=== PATIENT | male | born 1960 | race Caucasian/White ===

== ENCOUNTER 2018-02-12 17:01 | Inpatient (IN) ==
[~2018-02-12 17:01] MED LIST: *HR* Etomidate 40 MG/20 ML VIAL IVP ONE; 0.9 % Sodium Chloride 1,000 ML ONE
[2018-02-12] MEDS ORDERED: 0.9 % Sodium Chloride 1,000 ML IVC ONE (17:09)
[2018-02-12] MEDS ORDERED: Naloxone 0.4 MG/ML INJ IVP ONE (17:09)
[2018-02-12] MEDS ORDERED: Acetaminophen 325 MG RECTAL SUPP RC ONE (17:12)
[2018-02-12 17:20] LABS: ABG Base Excess -4 mEq/L (-2 to 3); ABG HCO3 20 mEq/L (21-27); ABG Oxygen Saturation 91 % (95-98); ABG PCO2 32 mmHg (35-45); ABG PH 7.41 pH Units (7.32-7.45); ABG PO2 60 mmHg (85-104); ABG TCO2 21 mEq/L (20-26)
[2018-02-12 17:29] LABS: Basophils % 0.2 %; Hematocrit 37.2 % (37.5-50.1); Hemoglobin 11.6 g/dL (12.9-16.9); Immature Granulocytes % 0.4 % (0-4); Mean Corpuscular HGB Conc 31.2 g/dL (31.6-35.5); Mean Corpuscular Hemoglobin 28.5 pg (28.0-33.3); Mean Corpuscular Volume 91.4 fL (83.0-100.0); Mean Platelet Volume 9.3 fL (9.4-12.4); Monocytes # 0.8 K/mcL (0.0-1.3); Monocytes % 8.2 %; Neutrophils # 7.7 K/mcL (1.6-8.9); Platelet Count 205 K/mcL (140-400); Red Blood Count 4.07 M/mcL (4.19-5.50); Red Cell Distribution Width 13.9 % (11.5-14.5); Segmented Neutrophils % 81.2 %
[2018-02-12] MEDS ORDERED: Piperacillin/Tazobactam 3.375 GM in Water for inj. (sterile) 20 ML 20 ML IVP ONE (17:37)
[2018-02-12] MEDS ORDERED: *HR* FentaNYL (PF) 100 MCG/2 ML VIAL IVP ONE (17:37)
[2018-02-12] MEDS ORDERED: Levofloxacin 750 MG/150 ML 750 MG/150 ML BAG IVPB ONE (17:37)
[2018-02-12 17:39] LABS: INR 1.1; Prothrombin Time 12.7 Seconds (9.4-12.1)
[2018-02-12 17:42] LABS: Bilirubin,Urine Small (Negative); Blood,Urine Negative (Negative); Clarity,Urine Clear (Clear); Color,Urine Yellow (Yellow); Glucose,Urine (UA) Normal (Normal); Ketones,Urine Negative (Negative); Leukocyte Esterase,Urine Negative (Negative); Nitrite,Urine Negative (Negative); Protein,Urine Negative (Neg-Trace); Specific Gravity,Urine 1.016 (1.010-1.025); Urobilinogen,Urine Normal (Normal)
[2018-02-12 17:42] LABS: Activated Partial Thrombo Time 32.7 Seconds (26.0-36.0)
[2018-02-12] MEDS ORDERED: FentaNYL (PF) 1,000 MCG in 0.9 % Sodium Chloride 80 ML IVC SCH (17:45)
[2018-02-12 17:55] LABS: Amphetamine Screen,Urine Negative ng/mL (Cutoff=1000); Barbiturate Screen,Urine Negative ng/mL (Cutoff=200); Benzodiazepines Screen,Urine Negative ng/mL (Cutoff=200); Cannabinoid Screen,Urine Negative ng/mL (Cutoff = 50); Cocaine Screen,Urine Negative ng/mL (Cutoff= 300); Opiate Screen,Urine Positive ng/mL (Cutoff=300); Phencyclidine Screen,Urine Negative ng/mL (Cutoff=25)
[2018-02-12] MEDS ORDERED: Isovue-370 500 ML INFUS..BTL IV ONE (17:56)
--- NOTE | 2018-02-12 17:56 | Emergency Department Note ---
Disposition Clinical Impression: Respiratory arrest, JEET (acute kidney injury) Sepsis Qualifiers: Sepsis type: sepsis due to unspecified organism Qualified Code(s): A41.9 - Sepsis, unspecified organism Altered mental status Qualifiers: Altered mental status type: coma Coma depth: other Coma timing: in the field (EMT or ambulance) Qualified Code(s): R40.2441 - Other coma, without documented Bettendorf coma scale score, or with partial score reported, in the field [EMT or ambulance] Disposition: Admitted As Inpatient Condition: Critical Time of Disposition: 22:43 General Adult HPI - General Chief complaint: ED Altered Mental Status Stated complaint: Unresponsive Time Seen by Provider: 02/12/18 17:09 Source: EMS Mode of arrival: EMS Limitations: altered mental status Nursing Notes Reviewed: Yes Vital Signs Reviewed: Yes - History of Present Illness HPI Narrative: Male patient brought in by EMS. He was found unresponsive at home. The son was cooking dinner and thought his father was taking a nap however whenever he went to talk to him he couldnt wake him from his chair. EMS was called. They reported that the patient was minimally responsive. Respirations were decrease d. Glucose was normal to bagging the patient. They did administer 2 mg of Narcan with a "minimal response." They did report a low blood pressure throughout transport. Patient arrived to a trauma 1. He did have two nasal trumpets placed. EMS is [id number] ventilating the patient. Pain Scale: 0 - Related Data Home Medications Medication Instructions Recorded Confirmed Amitriptyline HCl 50 mg PO DAILY 02/12/18 02/12/18 Amlodipine Besylate 2.5 mg PO DAILY 02/12/18 02/12/18 Atorvastatin [Lipitor] 40 mg PO HS 02/12/18 02/12/18 Gabapentin [Neurontin] 400 mg PO TID 02/12/18 02/12/18 Lisinopril [Zestril] 20 mg PO DAILY 02/12/18 02/12/18 Morphine Immed Rel [Morphine 15 mg PO TID 02/12/18 02/12/18 Sulfate] Morphine Sulfate [Morphine Sulfate 60 mg PO BID 02/12/18 02/12/18 ER] PARoxetine HCl [Paroxetine HCl] 40 mg PO DAILY 02/12/18 02/12/18 clonazePAM [Clonazepam] 1 mg PO TID 02/12/18 02/12/18 Allergies Allergy/AdvReac Type Severity Reaction Status Date / Time No Known Allergies Allergy Verified 02/12/18 17:47 Limitations: ROS unobtainable due to patients medical condition Past Medical History - Past Medical History Medical history: Reports: non-contributory, other (Right below the knee amputation. History of osteomyelitis.) Psychiatric history: Reports: no psych history - Social History Smoking Status: Former smoker Alcohol use: Reports: unknown Drug use: Reports: unknown Physical Exam - General Limitations: altered mental status General appearance: obtunded - Head Head exam: atraumatic, normocephalic, normal inspection - Eye Eye exam: Present: PERRL, other (Pupils are approximately 5 mm bilaterally.). Absent: scleral icterus - ENT ENT exam: normal exam, normal oropharynx, mucous membranes dry, other (Multiple loose and missing teeth.) - Neck Neck exam: Present: normal inspection, full ROM, trachea midline - Chest Chest inspection: Present: normal inspection, symmetric chest wall rise - Respiratory Respiratory exam: Present: other (Rhonchi throughout ) - Abdominal Exam Abdominal exam: Present: soft. Absent: distention, organomegaly, Elizabeth's sign, Rovsing's sign, tenderness at McBurney's Point - Extremities Exam Extremities exam: Present: normal inspection, full ROM, other (Right ends incision site for the right below the knee amputation clean dry not erythematous not warm.). Absent: tenderness, pedal edema - Neurological Exam Neurological exam: Present: other (Response to painful stimuli.) - Skin Skin exam: Present: warm (Warmer than what I would expect his skin temperature to be.), dry, intact, normal color Course Course Narrative: Patient initially had some desaturations despite 2 nasal trumpet being placed and positioning. Patient was minimally responsive. He did respond to sternal rubs. He occasionally would open his eyes to loud noises but not consistently. Patient was intubated successfully secondary to respiratory failure. Initial ABG showed an oxygen level of 60. With a normal CO2 level. Patient's incision site to the right leg does not appear to be grossly infected. He does have a history of osteomyelitis to this. He has had 3 surgeries on his leg initially the medication started secondary to nerve entrapment according to the father. He subsequently had 2 surgeries for osteomyelitis since then. The most recent surgery was approximately 3 weeks ago at [facility]. The patient does take morphine at home for pain secondary to the surgery as well as Paxil according to the father. However despite our best effort is the son at the house is having a hard time finding the patient's medications and reporting, the pills are in there. He was able to find the morphine pill bottles. He had 60 mg of morphine sulfate extended-release filled on February 10. He should have had 8475. He also had morphine sulfate 15 mg to take 3 times a day that was filled on 1024 he should have 52 and he has 50. He also had Klonopin 1 mg filled on 1017 3 times a day he has 23 and should have 36. He also has gabapentin 400 mg there was filled on 02/09/2018 he should have 78 but he of 76 this he takes a times a day. Patient's ABG was redrawn after the patient was been on the ventilator. He did decrease the oxygen on the ventilator to 70% after his PO2 was noted to be elevated. Patient has a left middle and lower lobe pneumonia likely aspiration. We did place patient on triple antibiotic therapy. I discussed the patient with nephrology suggested that suggest that we continue to hydrate the patient due to his new a chaotic. We are concerned for pulmonary embolism and the patient's troponin is elevated as well. The patient could not undergo a CTA of his chest at this time due to his TRESA. We will heparinize the patient at this time I discussed this with cardiology and they suggested this as well. Sepsis is also a concern at this time as is a possible serotonin syndrome. We discussed the patient with toxicology is requesting we keep the patient on benzos at this time. Patient is in critical condition. I discussed this with the family who is requesting patient stay code currently. We will admit patient to ICU. - Consultations Consultation #1: I spoke with Dr. Calabrese at her manager of product. He is agreeable to this patient should not undergo a CT PE study. He is suggesting that we could likely increase the fluid likely this is a prerenal form of jeet. Time: 18:55 Consultation #2: Spoke with toxicology. They will be calling back. Time: 19:42 Consultation #3: I spoke with toxicology again they called back. They are staying just benzos at this time. They do not believe that cyproheptadine will provide much benefit. Time: 20:07 Additional Consultation(s): 2035: Dr Ziegler accepted Pt in stable condition. Vital Signs Temperature 101.6 F H 02/12/18 17:01 Pulse Rate 115 02/12/18 17:01 Respiratory Rate 22 02/12/18 17:01 Blood Pressure 145/129 02/12/18 17:01 O2 Sat by Pulse Oximetry 95 02/12/18 17:01 Temperature 98.0 F 02/12/18 21:30 Pulse Rate 75 02/12/18 21:30 Respiratory Rate 14 02/12/18 21:30 Blood Pressure 82/51 02/12/18 21:30 O2 Sat by Pulse Oximetry 94 02/12/18 21:30 Oxygen Delivery Oxygen Delivery Ventilator Medical Decision Making - Medical Records Medical records reviewed: Yes I reviewed the patient's medical records. - Lab Data Lab results reviewed: Yes I reviewed the patient's lab results. Result diagrams: 02/12/18 20:31 02/12/18 17:09 Lab Results 02/12/18 02/12/18 02/12/18 Range/Units 17:04 17:09 17:11 WBC 9.5 (4.3-11.1) K/mcL RBC 4.07 L (4.19-5.50) M/mcL Hgb 11.6 L (12.9-16.9) g/dL Hct 37.2 L (37.5-50.1) % MCV 91.4 (83.0-100.0) fL MCH 28.5 (28.0-33.3) pg MCHC 31.2 L (31.6-35.5) g/dL RDW 13.9 (11.5-14.5) % Plt Count 205 (140-400) K/mcL MPV 9.3 L (9.4-12.4) fL Immature Gran % 0.4 (0-4) % Seg Neutrophils % 81.2 % Lymphocytes % 10.0 % Monocytes % 8.2 % Eosinophils % 0.0 % Basophils % 0.2 % Neutrophils # 7.7 (1.6-8.9) K/mcL Lymphocytes # 1.0 (0.6-4.6) K/mcL Monocytes # 0.8 (0.0-1.3) K/mcL Eosinophils # 0.0 (0.0-0.6) K/mcL Basophils # 0.0 (0.0-0.2) K/mcL PT (9.4-12.1) Seconds INR APTT (26.0-36.0) Seconds D-Dimer (0-500) ng/mLFEU Heparin Anti-Xa, Unfract (0.30-0.70) IU/mL Sample Site ABG pH (7.32-7.45) pH Units ABG pCO2 (35-45) mmHg ABG pO2 (85-104) mmHg ABG HCO3 (21-27) mEq/L ABG Total CO2 (20-26) mEq/L ABG O2 Saturation (95-98) % ABG Base Excess (-2 to 3) mEq/L Thad Test Carboxyhemoglobin (0-5) % Respiration Rate O2 Delivery Device Blood Gas Modality Inspired O2 (1-15=lpm [id number]=%) Tidal Volume cc PEEP cm H2O Sodium 134 L (136-145) mEq/L Potassium 5.3 H (3.5-5.1) mEq/L Chloride 104 (98-107) mEq/L Carbon Dioxide 20 L (23-29) mEq/L BUN 31 H (6-20) mg/dL Creatinine 5.62 H (0.70-1.30) mg/dL Est GFR ( Amer) 13 L (> 60) Est GFR (Non-Af Amer) 11 L (> 60) BUN/Creatinine Ratio 6 (6-26) Glucose 138 H (70-105) mg/dL POC Glucose 142 H (70-99) mg/dL Calculated Osmolality 287 (280-300) Lactic Acid (0.5-2.2) mmol/L Calcium 9.0 (8.6-10.3) mg/dL Phosphorus 5.5 H (2.7-4.5) mg/dL Magnesium 1.9 (1.6-2.6) mg/dL Total Bilirubin 0.8 (0.3-1.0) mg/dL Direct Bilirubin 0.2 (0.0-0.2) mg/dL Indirect Bilirubin 0.6 (0.0-1.2) mg/dL AST 14 (13-39) Units/L ALT 14 (7-52) Units/L Alkaline Phosphatase 145 H (34-104) Units/L Ammonia (16-53) mcmol/L Creatine Kinase 151 (30-223) Units/L Troponin I 0.31 H* (< 0.04) ng/mL Serum Total Protein 6.2 L (6.4-8.9) g/dL Albumin 3.6 (3.5-5.7) g/dL Globulin 2.6 (2.4-3.5) g/dL Albumin/Globulin Ratio 1.4 (1.1-2.2) TSH 0.774 (0.340-5.600) mcIU/mL Urine Color (Yellow) Urine Clarity (Clear) Urine pH (5.0-8.0) pH Units Ur Specific Sherburn (1.010-1.025) Urine Protein (Neg-Trace) mg/dL Urine Glucose (UA) (Normal) mg/dL Urine Ketones (Negative) mg/dL Urine Blood (Negative) Urine Nitrite (Negative) Urine Bilirubin (Negative) Urine Urobilinogen (Normal) mg/dL Ur Leukocyte Esterase (Negative) Ur Culture Indicated? (NO) Salicylates < 2.5 L (15.0-30.0) mg/dL Urine Opiates Screen (Omggyk=035) ng/mL Acetaminophen < 10 L (10-20) mcg/mL Ur Barbiturates Screen (Punhws=639) ng/mL Ur Phencyclidine Scrn (Cutoff=25) ng/mL Ur Amphetamines Screen (Vjwfkw=8394) ng/mL U Benzodiazepines Scrn (Wwidwk=747) ng/mL Urine Cocaine Screen (Cutoff= 300) ng/mL U Marijuana (THC) Screen (Cutoff = 50) ng/mL Ur Drug Screen Interp Ethyl Alcohol < 10 (Less than 10) mg/dL 02/12/18 02/12/18 02/12/18 Range/Units 17:11 17:11 17:12 WBC (4.3-11.1) K/mcL RBC (4.19-5.50) M/mcL Hgb (12.9-16.9) g/dL Hct (37.5-50.1) % MCV (83.0-100.0) fL MCH (28.0-33.3) pg MCHC (31.6-35.5) g/dL RDW (11.5-14.5) % Plt Count (140-400) K/mcL MPV (9.4-12.4) fL Immature Gran % (0-4) % Seg Neutrophils % % Lymphocytes % % Monocytes % % Eosinophils % % Basophils % % Neutrophils # (1.6-8.9) K/mcL Lymphocytes # (0.6-4.6) K/mcL Monocytes # (0.0-1.3) K/mcL Eosinophils # (0.0-0.6) K/mcL Basophils # (0.0-0.2) K/mcL PT 12.7 H (9.4-12.1) Seconds INR 1.1 APTT 32.7 (26.0-36.0) Seconds D-Dimer (0-500) ng/mLFEU Heparin Anti-Xa, Unfract (0.30-0.70) IU/mL Sample Site ABG pH (7.32-7.45) pH Units ABG pCO2 (35-45) mmHg ABG pO2 (85-104) mmHg ABG HCO3 (21-27) mEq/L ABG Total CO2 (20-26) mEq/L ABG O2 Saturation (95-98) % ABG Base Excess (-2 to 3) mEq/L Thad Test Carboxyhemoglobin 7.5 H (0-5) % Respiration Rate O2 Delivery Device Blood Gas Modality Inspired O2 (1-15=lpm fr36-174=%) Tidal Volume cc PEEP cm H2O Sodium (136-145) mEq/L Potassium (3.5-5.1) mEq/L Chloride (98-107) mEq/L Carbon Dioxide (23-29) mEq/L BUN (6-20) mg/dL Creatinine (0.70-1.30) mg/dL Est GFR ( Amer) (> 60) Est GFR (Non-Af Amer) (> 60) BUN/Creatinine Ratio (6-26) Glucose (70-105) mg/dL POC Glucose (70-99) mg/dL Calculated Osmolality (280-300) Lactic Acid 1.3 (0.5-2.2) mmol/L Calcium (8.6-10.3) mg/dL Phosphorus (2.7-4.5) mg/dL Magnesium (1.6-2.6) mg/dL Total Bilirubin (0.3-1.0) mg/dL Direct Bilirubin (0.0-0.2) mg/dL Indirect Bilirubin (0.0-1.2) mg/dL AST (13-39) Units/L ALT (7-52) Units/L Alkaline Phosphatase (34-104) Units/L Ammonia (16-53) mcmol/L Creatine Kinase (30-223) Units/L Troponin I (< 0.04) ng/mL Serum Total Protein (6.4-8.9) g/dL Albumin (3.5-5.7) g/dL Globulin (2.4-3.5) g/dL Albumin/Globulin Ratio (1.1-2.2) TSH (0.340-5.600) mcIU/mL Urine Color (Yellow) Urine Clarity (Clear) Urine pH (5.0-8.0) pH Units Ur Specific Sherburn (1.010-1.025) Urine Protein (Neg-Trace) mg/dL Urine Glucose (UA) (Normal) mg/dL Urine Ketones (Negative) mg/dL Urine Blood (Negative) Urine Nitrite (Negative) Urine Bilirubin (Negative) Urine Urobilinogen (Normal) mg/dL Ur Leukocyte Esterase (Negative) Ur Culture Indicated? (NO) Salicylates (15.0-30.0) mg/dL Urine Opiates Screen (Uotqdr=443) ng/mL Acetaminophen (10-20) mcg/mL Ur Barbiturates Screen (Cronxw=119) ng/mL Ur Phencyclidine Scrn (Cutoff=25) ng/mL Ur Amphetamines Screen (Vjlklt=3924) ng/mL U Benzodiazepines Scrn (Mgksdw=783) ng/mL Urine Cocaine Screen (Cutoff= 300) ng/mL U Marijuana (THC) Screen (Cutoff = 50) ng/mL Ur Drug Screen Interp Ethyl Alcohol (Less than 10) mg/dL 02/12/18 02/12/18 02/12/18 Range/Units 17:16 17:33 17:33 WBC (4.3-11.1) K/mcL RBC (4.19-5.50) M/mcL Hgb (12.9-16.9) g/dL Hct (37.5-50.1) % MCV (83.0-100.0) fL MCH (28.0-33.3) pg MCHC (31.6-35.5) g/dL RDW (11.5-14.5) % Plt Count (140-400) K/mcL MPV (9.4-12.4) fL Immature Gran % (0-4) % Seg Neutrophils % % Lymphocytes % % Monocytes % % Eosinophils % % Basophils % % Neutrophils # (1.6-8.9) K/mcL Lymphocytes # (0.6-4.6) K/mcL Monocytes # (0.0-1.3) K/mcL Eosinophils # (0.0-0.6) K/mcL Basophils # (0.0-0.2) K/mcL PT (9.4-12.1) Seconds INR APTT (26.0-36.0) Seconds D-Dimer (0-500) ng/mLFEU Heparin Anti-Xa, Unfract (0.30-0.70) IU/mL Sample Site L Radial ABG pH 7.41 (7.32-7.45) pH Units ABG pCO2 32 L (35-45) mmHg ABG pO2 60 L (85-104) mmHg ABG HCO3 20 L (21-27) mEq/L ABG Total CO2 21 (20-26) mEq/L ABG O2 Saturation 91 L (95-98) % ABG Base Excess -4 L (-2 to 3) mEq/L Thad Test N/A Carboxyhemoglobin (0-5) % Respiration Rate O2 Delivery Device Oxy Mask Blood Gas Modality Inspired O2 12.0 (1-15=lpm xm03-152=%) Tidal Volume cc PEEP cm H2O Sodium (136-145) mEq/L Potassium (3.5-5.1) mEq/L Chloride (98-107) mEq/L Carbon Dioxide (23-29) mEq/L BUN (6-20) mg/dL Creatinine (0.70-1.30) mg/dL Est GFR ( Amer) (> 60) Est GFR (Non-Af Amer) (> 60) BUN/Creatinine Ratio (6-26) Glucose (70-105) mg/dL POC Glucose (70-99) mg/dL Calculated Osmolality (280-300) Lactic Acid (0.5-2.2) mmol/L Calcium (8.6-10.3) mg/dL Phosphorus (2.7-4.5) mg/dL Magnesium (1.6-2.6) mg/dL Total Bilirubin (0.3-1.0) mg/dL Direct Bilirubin (0.0-0.2) mg/dL Indirect Bilirubin (0.0-1.2) mg/dL AST (13-39) Units/L ALT (7-52) Units/L Alkaline Phosphatase (34-104) Units/L Ammonia (16-53) mcmol/L Creatine Kinase (30-223) Units/L Troponin I (< 0.04) ng/mL Serum Total Protein (6.4-8.9) g/dL Albumin (3.5-5.7) g/dL Globulin (2.4-3.5) g/dL Albumin/Globulin Ratio (1.1-2.2) TSH (0.340-5.600) mcIU/mL Urine Color Yellow (Yellow) Urine Clarity Clear (Clear) Urine pH 6.0 (5.0-8.0) pH Units Ur Specific Sherburn 1.016 (1.010-1.025) Urine Protein Negative (Neg-Trace) mg/dL Urine Glucose (UA) Normal (Normal) mg/dL Urine Ketones Negative (Negative) mg/dL Urine Blood Negative (Negative) Urine Nitrite Negative (Negative) Urine Bilirubin Small H (Negative) Urine Urobilinogen Normal (Normal) mg/dL Ur Leukocyte Esterase Negative (Negative) Ur Culture Indicated? NO (NO) Salicylates (15.0-30.0) mg/dL Urine Opiates Screen Positive H (Vbjdkx=840) ng/mL Acetaminophen (10-20) mcg/mL Ur Barbiturates Screen Negative (Endckx=391) ng/mL Ur Phencyclidine Scrn Negative (Cutoff=25) ng/mL Ur Amphetamines Screen Negative (Ugogsl=1202) ng/mL U Benzodiazepines Scrn Negative (Duugmq=565) ng/mL Urine Cocaine Screen Negative (Cutoff= 300) ng/mL U Marijuana (THC) Screen Negative (Cutoff = 50) ng/mL Ur Drug Screen Interp See Below Ethyl Alcohol (Less than 10) mg/dL 02/12/18 02/12/18 02/12/18 Range/Units 17:35 20:06 20:31 WBC 10.6 (4.3-11.1) K/mcL RBC 3.88 L (4.19-5.50) M/mcL Hgb 11.1 L (12.9-16.9) g/dL Hct 35.7 L (37.5-50.1) % MCV 92.0 (83.0-100.0) fL MCH 28.6 (28.0-33.3) pg MCHC 31.1 L (31.6-35.5) g/dL RDW 13.9 (11.5-14.5) % Plt Count 182 (140-400) K/mcL MPV 9.2 L (9.4-12.4) fL Immature Gran % (0-4) % Seg Neutrophils % % Lymphocytes % % Monocytes % % Eosinophils % % Basophils % % Neutrophils # (1.6-8.9) K/mcL Lymphocytes # (0.6-4.6) K/mcL Monocytes # (0.0-1.3) K/mcL Eosinophils # (0.0-0.6) K/mcL Basophils # (0.0-0.2) K/mcL PT (9.4-12.1) Seconds INR APTT (26.0-36.0) Seconds D-Dimer (0-500) ng/mLFEU Heparin Anti-Xa, Unfract (0.30-0.70) IU/mL Sample Site L Radial ABG pH 7.27 L D (7.32-7.45) pH Units ABG pCO2 47 H (35-45) mmHg ABG pO2 172 H D (85-104) mmHg ABG HCO3 22 (21-27) mEq/L ABG Total CO2 23 (20-26) mEq/L ABG O2 Saturation 99 H (95-98) % ABG Base Excess -5 L (-2 to 3) mEq/L Thad Test N/A Carboxyhemoglobin (0-5) % Respiration Rate 12 O2 Delivery Device Adult Vent Blood Gas Modality ASSIST CONTROL Inspired O2 100.0 (1-15=lpm qj21-979=%) Tidal Volume 550 cc PEEP 5 cm H2O Sodium (136-145) mEq/L Potassium (3.5-5.1) mEq/L Chloride (98-107) mEq/L Carbon Dioxide (23-29) mEq/L BUN (6-20) mg/dL Creatinine (0.70-1.30) mg/dL Est GFR ( Amer) (> 60) Est GFR (Non-Af Amer) (> 60) BUN/Creatinine Ratio (6-26) Glucose (70-105) mg/dL POC Glucose (70-99) mg/dL Calculated Osmolality (280-300) Lactic Acid (0.5-2.2) mmol/L Calcium (8.6-10.3) mg/dL Phosphorus (2.7-4.5) mg/dL Magnesium (1.6-2.6) mg/dL Total Bilirubin (0.3-1.0) mg/dL Direct Bilirubin (0.0-0.2) mg/dL Indirect Bilirubin (0.0-1.2) mg/dL AST (13-39) Units/L ALT (7-52) Units/L Alkaline Phosphatase (34-104) Units/L Ammonia 47 (16-53) mcmol/L Creatine Kinase (30-223) Units/L Troponin I (< 0.04) ng/mL Serum Total Protein (6.4-8.9) g/dL Albumin (3.5-5.7) g/dL Globulin (2.4-3.5) g/dL Albumin/Globulin Ratio (1.1-2.2) TSH (0.340-5.600) mcIU/mL Urine Color (Yellow) Urine Clarity (Clear) Urine pH (5.0-8.0) pH Units Ur Specific Sherburn (1.010-1.025) Urine Protein (Neg-Trace) mg/dL Urine Glucose (UA) (Normal) mg/dL Urine Ketones (Negative) mg/dL Urine Blood (Negative) Urine Nitrite (Negative) Urine Bilirubin (Negative) Urine Urobilinogen (Normal) mg/dL Ur Leukocyte Esterase (Negative) Ur Culture Indicated? (NO) Salicylates (15.0-30.0) mg/dL Urine Opiates Screen (Qvvcke=988) ng/mL Acetaminophen (10-20) mcg/mL Ur Barbiturates Screen (Umomrj=922) ng/mL Ur Phencyclidine Scrn (Cutoff=25) ng/mL Ur Amphetamines Screen (Wqhcqg=3984) ng/mL U Benzodiazepines Scrn (Jnvrvl=005) ng/mL Urine Cocaine Screen (Cutoff= 300) ng/mL U Marijuana (THC) Screen (Cutoff = 50) ng/mL Ur Drug Screen Interp Ethyl Alcohol (Less than 10) mg/dL 02/12/18 Range/Units 20:31 WBC (4.3-11.1) K/mcL RBC (4.19-5.50) M/mcL Hgb (12.9-16.9) g/dL Hct (37.5-50.1) % MCV (83.0-100.0) fL MCH (28.0-33.3) pg MCHC (31.6-35.5) g/dL RDW (11.5-14.5) % Plt Count (140-400) K/mcL MPV (9.4-12.4) fL Immature Gran % (0-4) % Seg Neutrophils % % Lymphocytes % % Monocytes % % Eosinophils % % Basophils % % Neutrophils # (1.6-8.9) K/mcL Lymphocytes # (0.6-4.6) K/mcL Monocytes # (0.0-1.3) K/mcL Eosinophils # (0.0-0.6) K/mcL Basophils # (0.0-0.2) K/mcL PT 13.3 H (9.4-12.1) Seconds INR 1.2 APTT (26.0-36.0) Seconds D-Dimer 1518 H (0-500) ng/mLFEU Heparin Anti-Xa, Unfract 0.00 L (0.30-0.70) IU/mL Sample Site ABG pH (7.32-7.45) pH Units ABG pCO2 (35-45) mmHg ABG pO2 (85-104) mmHg ABG HCO3 (21-27) mEq/L ABG Total CO2 (20-26) mEq/L ABG O2 Saturation (95-98) % ABG Base Excess (-2 to 3) mEq/L Thad Test Carboxyhemoglobin (0-5) % Respiration Rate O2 Delivery Device Blood Gas Modality Inspired O2 (1-15=lpm vk89-891=%) Tidal Volume cc PEEP cm H2O Sodium (136-145) mEq/L Potassium (3.5-5.1) mEq/L Chloride (98-107) mEq/L Carbon Dioxide (23-29) mEq/L BUN (6-20) mg/dL Creatinine (0.70-1.30) mg/dL Est GFR ( Amer) (> 60) Est GFR (Non-Af Amer) (> 60) BUN/Creatinine Ratio (6-26) Glucose (70-105) mg/dL POC Glucose (70-99) mg/dL Calculated Osmolality (280-300) Lactic Acid (0.5-2.2) mmol/L Calcium (8.6-10.3) mg/dL Phosphorus (2.7-4.5) mg/dL Magnesium (1.6-2.6) mg/dL Total Bilirubin (0.3-1.0) mg/dL Direct Bilirubin (0.0-0.2) mg/dL Indirect Bilirubin (0.0-1.2) mg/dL AST (13-39) Units/L ALT (7-52) Units/L Alkaline Phosphatase (34-104) Units/L Ammonia (16-53) mcmol/L Creatine Kinase (30-223) Units/L Troponin I (< 0.04) ng/mL Serum Total Protein (6.4-8.9) g/dL Albumin (3.5-5.7) g/dL Globulin (2.4-3.5) g/dL Albumin/Globulin Ratio (1.1-2.2) TSH (0.340-5.600) mcIU/mL Urine Color (Yellow) Urine Clarity (Clear) Urine pH (5.0-8.0) pH Units Ur Specific [place] (1.010-1.025) Urine Protein (Neg-Trace) mg/dL Urine Glucose (UA) (Normal) mg/dL Urine Ketones (Negative) mg/dL Urine Blood (Negative) Urine Nitrite (Negative) Urine Bilirubin (Negative) Urine Urobilinogen (Normal) mg/dL Ur Leukocyte Esterase (Negative) Ur Culture Indicated? (NO) Salicylates (15.0-30.0) mg/dL Urine Opiates Screen (Vvkyqn=363) ng/mL Acetaminophen (10-20) mcg/mL Ur Barbiturates Screen (Anbqll=183) ng/mL Ur Phencyclidine Scrn (Cutoff=25) ng/mL Ur Amphetamines Screen (Pxbifu=7882) ng/mL U Benzodiazepines Scrn (Kaexnz=114) ng/mL Urine Cocaine Screen (Cutoff= 300) ng/mL U Marijuana (THC) Screen (Cutoff = 50) ng/mL Ur Drug Screen Interp Ethyl Alcohol (Less than 10) mg/dL - Radiology Data Radiology results reviewed: Yes I reviewed the patient's radiology results. Chest X-Ray 02/12/18 17:09 IMPRESSION: 1. Endotracheal tube tip terminates 3.1 cm above the nancy. 2. Nasogastric tube tip terminates in the region of the pylorus. 3. Cardiomegaly with mild to moderate congestive heart failure. D/ / 02/12/2018 17:56:32 Jenny Aranda MD / [place] Interpreting Provider: Jenny Aranda MD Head CT 02/12/18 17:10 IMPRESSION: 1. Motion artifact limits evaluation. No definite acute intracranial abnormality. 2. Nonspecific metallic radiodensity measuring approximately 6 mm is present in the region of the posterior nasopharynx. 3. Scattered fluid is present in the nasal cavity and ethmoid air cells, of unclear significance. D/ /12/2018 19:00:22 Sher Dorsey MD / [place] Interpreting Provider: Sher Dorsey MD Chest CT 02/12/18 17:56 IMPRESSION: 1. Motion artifact limits evaluation. 2. Focal obstruction of the bronchus to the left lower lobe, which could be related to mucous plugging or aspiration. Consolidation is present in the infrahilar left lower lobe. 3. Extensive atelectasis present posteriorly in both lower lobes, with airspace consolidation not excluded. 4. Mild mediastinal lymphadenopathy, which may be reactive. D/ 02/12/2018 19:07:18 Sher Dorsey MD / [place] Interpreting Provider: Sher Dorsey MD - EKG Data EKG #1 EKG attestation: Yes I reviewed and interpreted this EKG. EKG results narrative: Sinus tachycardia at a rate of 112. CA intervals 143. QRS duration is 1:15. QT is 318. QTC is 434. No signs of acute ischemia. There is been an axis change from his previous EKG dated 09/02/2017. However his most recent EKG dated 10/23/2017 shows the same axis. No other significant changes noted. Patient does have some ST depressions noted in the lateral leads. Critical Care Time Critical Care Time: Yes Total Critical Care Time: 90 Attestation: The high probability of a clinically significant, sudden or life threatening deterioration of the cardiovascular and respiratory system(s) required my full and direct attention, intervention and personal management. The aggregate critical care time was 90 minutes. This time is in addition to time spent performing reported procedures but includes the following: x Data Review and interpretation x Patient assessment and monitoring of vital signs x Documentation x Medication orders and management Attestation Statement - Attestation Attestation: I, Wayne Orona, examined this patient and my medical decision-making was reviewed with the CHEMICAL PROCESS OPERATOR/PA/Advanced Practice Nurse/Resident Physician. I agree with the documented findings, disposition and treatment plan as described except to the extent set forth below. 57-year-old male brought to the emergency department after being found unresponsive. Patient was last seen at his baseline about 3-4 hours prior to when he was found. EMS arrived on scene and found him to be hypoxic to 70% and hypotensive. They put him on nonrebreather with improvement of his O2 saturation. Upon arrival to the emergency department he opens his eyes to pain, makes incomprehensible sounds and has myoclonic jerking with withdrawals from pain. He was hyperthermic at 102.5. Family arrived and stated that he had been taking Paxil however it is not listed among his medications. We have multiple concerns including possible PE as he is status post right BKA. Also concerned about possible sepsis with his febrile status and rhonchi on lung exam. There is also concerned about possible serotonin syndrome as he has myoclonic jerks with hyperthermia and was apparently taking Paxil. Patient was intubated to protect his airway. His BP remained stable. CT of his head was negative for acute fracture or intracranial hemorrhage. CT of his chest showed possible mucous plugging versus atelectasis. We are unable to use contrast to evaluate for PE because of patient's acute renal failure. I spoke with the radiologist who recommended that we would not be able to obtain a very good VQ scan because he is intubated. We spoke with the baseball umpire for [employer] regarding patient's case and presentation and the elevated troponin who agreed with the plan for starting patient on heparin which will treat both possible ACS as well as PE. Patient started on antibiotics in the emergency department for possible sepsis. Patient will be admitted to the ICU.
[2018-02-12 17:57] LABS: Alanine Aminotransferase 14 Units/L (7-52); Albumin 3.6 g/dL (3.5-5.7); Albumin/Globulin Ratio 1.4 (1.1-2.2); Alkaline Phosphatase 145 Units/L (34-104); Aspartate Amino Transferase 14 Units/L (13-39); BUN/Creatinine Ratio 6 (6-26); Bilirubin,Direct 0.2 mg/dL (0.0-0.2); Bilirubin,Indirect 0.6 mg/dL (0.0-1.2); Bilirubin,Total 0.8 mg/dL (0.3-1.0); Blood Urea Nitrogen 31 mg/dL (6-20); Carbon Dioxide 20 mEq/L (23-29); Chloride 104 mEq/L (98-107); Creatine Kinase 151 Units/L (30-223); Ethanol < 10 mg/dL (Less than 10); Globulin 2.6 g/dL (2.4-3.5); Glucose 138 mg/dL (70-105); Osmolality,Calculated 287 (280-300); Potassium 5.3 mEq/L (3.5-5.1); Sodium 134 mEq/L (136-145); Total Protein 6.2 g/dL (6.4-8.9); eGFR For Non-African Americans 11 (> 60)
[2018-02-12 18:01] LABS: Troponin I 0.31 ng/mL (< 0.04)
[2018-02-12] MEDS ORDERED: Propofol 500 MG/50 ML INFUS..BTL ONE (18:02)
[2018-02-12 18:09] LABS: Thyroid Stimulating Hormone 0.774 mcIU/mL (0.340-5.600)
[2018-02-12 18:14] LABS: Magnesium 1.9 mg/dL (1.6-2.6); Phosphorous 5.5 mg/dL (2.7-4.5)
--- NOTE | 2018-02-12 18:34 | Emergency Department Note ---
Disposition Clinical Impression: Respiratory arrest, Sepsis, Altered mental status, JEET (acute kidney injury) Disposition: Admitted As Inpatient Condition: Critical General Adult HPI - General Chief complaint: ED Altered Mental Status Stated complaint: Unresponsive Time Seen by Provider: 02/12/18 17:09 Source: EMS Limitations: altered mental status - History of Present Illness Pain Scale: 0 - Related Data Allergies Allergy/AdvReac Type Severity Reaction Status Date / Time No Known Allergies Allergy Verified 02/12/18 17:47 Past Medical History - Past Medical History Medical history: Reports: non-contributory Psychiatric history: Reports: no psych history - Social History Smoking Status: Former smoker Alcohol use: Reports: unknown Drug use: Reports: unknown Physical Exam - General Limitations: altered mental status General appearance: obtunded Course Course Narrative: My role in the patient's care was for information only. Please see Dr. Curry note for full history of present illness, PE and MDM. Vital Signs Temperature 101.6 F H 02/12/18 17:01 Pulse Rate 115 02/12/18 17:01 Respiratory Rate 22 02/12/18 17:01 Blood Pressure 145/129 02/12/18 17:01 O2 Sat by Pulse Oximetry 95 02/12/18 17:01 Temperature 102.6 F H 02/12/18 17:55 Pulse Rate 114 02/12/18 17:55 Respiratory Rate 21 02/12/18 17:55 Blood Pressure 129/76 02/12/18 17:55 O2 Sat by Pulse Oximetry 100 02/12/18 17:55 Oxygen Delivery Oxygen Delivery Ventilator Procedures - Intubation Time out performed: Yes sedative: Etomidate Mg Given: 20 paralytic: Succinylcholine Mg Given: 70 Laryngoscope: Yuliya Assist Device Used: other ET Tube Size: 8 ET Tube Uncuffed: No Tube Secured Depth (cm): 24 Tube Secured Location: lips Tube Placement Confirmation: visualized tube passing through cords, equal breath sounds bilaterally, no breath sounds over epigastrium, confirmation by capnometry Patient Tolerated Procedure: well Intubation Complications: none Additional Comments: I made one attempt with Yuliya 4 direct, attempted to pass tube but unable to visualize passing cords but thick secretions vacuumed. Patient bagged with return to 100% oxygenation. When preoxygenation obtained, transitioned to use of CMAC with repeat inability to visualize cords. Dr. Curry then took over with successful passage of tubes beyond tubes via use of CMAC. Medical Decision Making - Lab Data Result diagrams: 02/12/18 20:31 02/12/18 17:09 Lab Results 02/12/18 02/12/18 02/12/18 Range/Units 17:09 17:11 17:11 WBC 9.5 (4.3-11.1) K/mcL RBC 4.07 L (4.19-5.50) M/mcL Hgb 11.6 L (12.9-16.9) g/dL Hct 37.2 L (37.5-50.1) % MCV 91.4 (83.0-100.0) fL MCH 28.5 (28.0-33.3) pg MCHC 31.2 L (31.6-35.5) g/dL RDW 13.9 (11.5-14.5) % Plt Count 205 (140-400) K/mcL MPV 9.3 L (9.4-12.4) fL Immature Gran % 0.4 (0-4) % Seg Neutrophils % 81.2 % Lymphocytes % 10.0 % Monocytes % 8.2 % Eosinophils % 0.0 % Basophils % 0.2 % Neutrophils # 7.7 (1.6-8.9) K/mcL Lymphocytes # 1.0 (0.6-4.6) K/mcL Monocytes # 0.8 (0.0-1.3) K/mcL Eosinophils # 0.0 (0.0-0.6) K/mcL Basophils # 0.0 (0.0-0.2) K/mcL PT 12.7 H (9.4-12.1) Seconds INR 1.1 APTT 32.7 (26.0-36.0) Seconds Sample Site ABG pH (7.32-7.45) pH Units ABG pCO2 (35-45) mmHg ABG pO2 (85-104) mmHg ABG HCO3 (21-27) mEq/L ABG Total CO2 (20-26) mEq/L ABG O2 Saturation (95-98) % ABG Base Excess (-2 to 3) mEq/L Thad Test Carboxyhemoglobin (0-5) % O2 Delivery Device Inspired O2 (1-15=lpm [id number]=%) Sodium 134 L (136-145) mEq/L Potassium 5.3 H (3.5-5.1) mEq/L Chloride 104 (98-107) mEq/L Carbon Dioxide 20 L (23-29) mEq/L BUN 31 H (6-20) mg/dL Creatinine 5.62 H (0.70-1.30) mg/dL Est GFR ( Amer) 13 L (> 60) Est GFR (Non-Af Amer) 11 L (> 60) BUN/Creatinine Ratio 6 (6-26) Glucose 138 H (70-105) mg/dL Calculated Osmolality 287 (280-300) Lactic Acid (0.5-2.2) mmol/L Calcium 9.0 (8.6-10.3) mg/dL Phosphorus 5.5 H (2.7-4.5) mg/dL Magnesium 1.9 (1.6-2.6) mg/dL Total Bilirubin 0.8 (0.3-1.0) mg/dL Direct Bilirubin 0.2 (0.0-0.2) mg/dL Indirect Bilirubin 0.6 (0.0-1.2) mg/dL AST 14 (13-39) Units/L ALT 14 (7-52) Units/L Alkaline Phosphatase 145 H (34-104) Units/L Ammonia (16-53) mcmol/L Creatine Kinase 151 (30-223) Units/L Troponin I 0.31 H* (< 0.04) ng/mL Serum Total Protein 6.2 L (6.4-8.9) g/dL Albumin 3.6 (3.5-5.7) g/dL Globulin 2.6 (2.4-3.5) g/dL Albumin/Globulin Ratio 1.4 (1.1-2.2) TSH 0.774 (0.340-5.600) mcIU/mL Urine Color (Yellow) Urine Clarity (Clear) Urine pH (5.0-8.0) pH Units Ur Specific Lynn (1.010-1.025) Urine Protein (Neg-Trace) mg/dL Urine Glucose (UA) (Normal) mg/dL Urine Ketones (Negative) mg/dL Urine Blood (Negative) Urine Nitrite (Negative) Urine Bilirubin (Negative) Urine Urobilinogen (Normal) mg/dL Ur Leukocyte Esterase (Negative) Ur Culture Indicated? (NO) Urine Opiates Screen (Prcecu=859) ng/mL Ur Barbiturates Screen (Xxpuzc=181) ng/mL Ur Phencyclidine Scrn (Cutoff=25) ng/mL Ur Amphetamines Screen (Lamftz=9008) ng/mL U Benzodiazepines Scrn (Aphytv=785) ng/mL Urine Cocaine Screen (Cutoff= 300) ng/mL U Marijuana (THC) Screen (Cutoff = 50) ng/mL Ur Drug Screen Interp Ethyl Alcohol < 10 (Less than 10) mg/dL 02/12/18 02/12/18 02/12/18 Range/Units 17:11 17:12 17:16 WBC (4.3-11.1) K/mcL RBC (4.19-5.50) M/mcL Hgb (12.9-16.9) g/dL Hct (37.5-50.1) % MCV (83.0-100.0) fL MCH (28.0-33.3) pg MCHC (31.6-35.5) g/dL RDW (11.5-14.5) % Plt Count (140-400) K/mcL MPV (9.4-12.4) fL Immature Gran % (0-4) % Seg Neutrophils % % Lymphocytes % % Monocytes % % Eosinophils % % Basophils % % Neutrophils # (1.6-8.9) K/mcL Lymphocytes # (0.6-4.6) K/mcL Monocytes # (0.0-1.3) K/mcL Eosinophils # (0.0-0.6) K/mcL Basophils # (0.0-0.2) K/mcL PT (9.4-12.1) Seconds INR APTT (26.0-36.0) Seconds Sample Site L Radial ABG pH 7.41 (7.32-7.45) pH Units ABG pCO2 32 L (35-45) mmHg ABG pO2 60 L (85-104) mmHg ABG HCO3 20 L (21-27) mEq/L ABG Total CO2 21 (20-26) mEq/L ABG O2 Saturation 91 L (95-98) % ABG Base Excess -4 L (-2 to 3) mEq/L Thad Test N/A Carboxyhemoglobin 7.5 H (0-5) % O2 Delivery Device Oxy Mask Inspired O2 12.0 (1-15=lpm [id number]=%) Sodium (136-145) mEq/L Potassium (3.5-5.1) mEq/L Chloride (98-107) mEq/L Carbon Dioxide (23-29) mEq/L BUN (6-20) mg/dL Creatinine (0.70-1.30) mg/dL Est GFR ( Amer) (> 60) Est GFR (Non-Af Amer) (> 60) BUN/Creatinine Ratio (6-26) Glucose (70-105) mg/dL Calculated Osmolality (280-300) Lactic Acid 1.3 (0.5-2.2) mmol/L Calcium (8.6-10.3) mg/dL Phosphorus (2.7-4.5) mg/dL Magnesium (1.6-2.6) mg/dL Total Bilirubin (0.3-1.0) mg/dL Direct Bilirubin (0.0-0.2) mg/dL Indirect Bilirubin (0.0-1.2) mg/dL AST (13-39) Units/L ALT (7-52) Units/L Alkaline Phosphatase (34-104) Units/L Ammonia (16-53) mcmol/L Creatine Kinase (30-223) Units/L Troponin I (< 0.04) ng/mL Serum Total Protein (6.4-8.9) g/dL Albumin (3.5-5.7) g/dL Globulin (2.4-3.5) g/dL Albumin/Globulin Ratio (1.1-2.2) TSH (0.340-5.600) mcIU/mL Urine Color (Yellow) Urine Clarity (Clear) Urine pH (5.0-8.0) pH Units Ur Specific Lynn (1.010-1.025) Urine Protein (Neg-Trace) mg/dL Urine Glucose (UA) (Normal) mg/dL Urine Ketones (Negative) mg/dL Urine Blood (Negative) Urine Nitrite (Negative) Urine Bilirubin (Negative) Urine Urobilinogen (Normal) mg/dL Ur Leukocyte Esterase (Negative) Ur Culture Indicated? (NO) Urine Opiates Screen (Luonzx=506) ng/mL Ur Barbiturates Screen (Wrxghf=337) ng/mL Ur Phencyclidine Scrn (Cutoff=25) ng/mL Ur Amphetamines Screen (Bkkwis=4514) ng/mL U Benzodiazepines Scrn (Jezmkk=037) ng/mL Urine Cocaine Screen (Cutoff= 300) ng/mL U Marijuana (THC) Screen (Cutoff = 50) ng/mL Ur Drug Screen Interp Ethyl Alcohol (Less than 10) mg/dL 02/12/18 02/12/18 02/12/18 Range/Units 17:33 17:33 17:35 WBC (4.3-11.1) K/mcL RBC (4.19-5.50) M/mcL Hgb (12.9-16.9) g/dL Hct (37.5-50.1) % MCV (83.0-100.0) fL MCH (28.0-33.3) pg MCHC (31.6-35.5) g/dL RDW (11.5-14.5) % Plt Count (140-400) K/mcL MPV (9.4-12.4) fL Immature Gran % (0-4) % Seg Neutrophils % % Lymphocytes % % Monocytes % % Eosinophils % % Basophils % % Neutrophils # (1.6-8.9) K/mcL Lymphocytes # (0.6-4.6) K/mcL Monocytes # (0.0-1.3) K/mcL Eosinophils # (0.0-0.6) K/mcL Basophils # (0.0-0.2) K/mcL PT (9.4-12.1) Seconds INR APTT (26.0-36.0) Seconds Sample Site ABG pH (7.32-7.45) pH Units ABG pCO2 (35-45) mmHg ABG pO2 (85-104) mmHg ABG HCO3 (21-27) mEq/L ABG Total CO2 (20-26) mEq/L ABG O2 Saturation (95-98) % ABG Base Excess (-2 to 3) mEq/L Thad Test Carboxyhemoglobin (0-5) % O2 Delivery Device Inspired O2 (1-15=lpm [id number]=%) Sodium (136-145) mEq/L Potassium (3.5-5.1) mEq/L Chloride (98-107) mEq/L Carbon Dioxide (23-29) mEq/L BUN (6-20) mg/dL Creatinine (0.70-1.30) mg/dL Est GFR ( Amer) (> 60) Est GFR (Non-Af Amer) (> 60) BUN/Creatinine Ratio (6-26) Glucose (70-105) mg/dL Calculated Osmolality (280-300) Lactic Acid (0.5-2.2) mmol/L Calcium (8.6-10.3) mg/dL Phosphorus (2.7-4.5) mg/dL Magnesium (1.6-2.6) mg/dL Total Bilirubin (0.3-1.0) mg/dL Direct Bilirubin (0.0-0.2) mg/dL Indirect Bilirubin (0.0-1.2) mg/dL AST (13-39) Units/L ALT (7-52) Units/L Alkaline Phosphatase (34-104) Units/L Ammonia 47 (16-53) mcmol/L Creatine Kinase (30-223) Units/L Troponin I (< 0.04) ng/mL Serum Total Protein (6.4-8.9) g/dL Albumin (3.5-5.7) g/dL Globulin (2.4-3.5) g/dL Albumin/Globulin Ratio (1.1-2.2) TSH (0.340-5.600) mcIU/mL Urine Color Yellow (Yellow) Urine Clarity Clear (Clear) Urine pH 6.0 (5.0-8.0) pH Units Ur Specific Lynn 1.016 (1.010-1.025) Urine Protein Negative (Neg-Trace) mg/dL Urine Glucose (UA) Normal (Normal) mg/dL Urine Ketones Negative (Negative) mg/dL Urine Blood Negative (Negative) Urine Nitrite Negative (Negative) Urine Bilirubin Small H (Negative) Urine Urobilinogen Normal (Normal) mg/dL Ur Leukocyte Esterase Negative (Negative) Ur Culture Indicated? NO (NO) Urine Opiates Screen Positive H (Mfonyp=462) ng/mL Ur Barbiturates Screen Negative (Iblnvb=490) ng/mL Ur Phencyclidine Scrn Negative (Cutoff=25) ng/mL Ur Amphetamines Screen Negative ([place]=8059) ng/mL U Benzodiazepines Scrn Negative (Ieinrq=820) ng/mL Urine Cocaine Screen Negative (Cutoff= 300) ng/mL U Marijuana (THC) Screen Negative (Cutoff = 50) ng/mL Ur Drug Screen Interp See Below Ethyl Alcohol (Less than 10) mg/dL Attestation Statement - Attestation Attestation: I, Wayne Orona, examined this patient and my medical decision-making was reviewed with the CBX OPERATOR/PA/Advanced Practice Nurse/Resident Physician. I agree with the documented findings, disposition and treatment plan as described except to the extent set forth below. I supervised this intubation.
[2018-02-12 19:55] LABS: Acetaminophen < 10 mcg/mL (10-20); Salicylate < 2.5 mg/dL (15.0-30.0)
[2018-02-12] MEDS: Ringers Solution, Lactated 1,000 ML IVC SCH ×2 (19:59→23:32)
[2018-02-12 20:09] LABS: ABG Base Excess -5 mEq/L (-2 to 3); ABG HCO3 22 mEq/L (21-27); ABG Oxygen Saturation 99 % (95-98); ABG PCO2 47 mmHg (35-45); ABG PH 7.27 pH Units (7.32-7.45); ABG PO2 172 mmHg (85-104); ABG TCO2 23 mEq/L (20-26); Blood Gas Modality ASSIST CONTROL; Blood Gas PEEP 5 cm H2O; Blood Gas Respiration Rate 12; Blood Gas VT 550 cc
[2018-02-12] MEDS ORDERED: *HR* Heparin 5,000 UNIT/ML VIAL IVP ONE (20:17)
[2018-02-12] MEDS ORDERED: *HR* Heparin 5,000 UNIT/ML VIAL IVP PRN (20:17)
[2018-02-12 20:42] LABS: Hematocrit 35.7 % (37.5-50.1); Hemoglobin 11.1 g/dL (12.9-16.9); Mean Corpuscular HGB Conc 31.1 g/dL (31.6-35.5); Mean Corpuscular Hemoglobin 28.6 pg (28.0-33.3); Mean Platelet Volume 9.2 fL (9.4-12.4); Platelet Count 182 K/mcL (140-400); Red Blood Count 3.88 M/mcL (4.19-5.50); Red Cell Distribution Width 13.9 % (11.5-14.5)
[2018-02-12 20:50] LABS: INR 1.2; Prothrombin Time 13.3 Seconds (9.4-12.1)
--- NOTE | 2018-02-12 22:07 | Internal Med History&Physical ---
<Harriet Torres N - Last Filed: 02/12/18 23:32> Date of Encounter: 02/12/18 Time of Encounter: 22:07 Internal Medicine - H&P: HPI Chief complaint: Unresponsive Admitted From: Emergency Dept History of present illness: Mr. Dixon is a 57 year old male with a medical history of hypertension, diabetes, chronic kidney disease stage III, and hyperlipidemia. 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 He was found to be unresponsive by his son this afternoon, and was brought to the ED via EMS. Family states that the patient was noted to be sleeping in his recliner, which is normal for him. When his son tried to wake him several hours later, he was found to be unarousable. Per ED provider documentation, patient was found to be minimally responsive by EMS, and was noted to have decreased respiration. He was given a dose of narcan en route, with minimal response. Family denies any recent illness or acute complaints from the patient over the last few days. They do note that he was depressed recently, as his brother in April of this year. His sister stated that the possibi lity of the patient intentionally causing harm to himself could not be excluded. Patient was intubated upon arrival to the ED secondary to respiratory failure. Initial vital signs obtained in the emergency department revealed a temperature of 101.6, HR 115, and RR 22. Chest x-ray demonstrated cardiomegaly with mild to moderate congestive heart failure. Chest CT was significant for focal obstru ction of the bronchus to the left lower lobe, possibly secondary to mucous plugging or aspiration. Infrahilar left lower lobe consolidation was also noted, as was as extensive atelectasis in bilateral lower lobes. Several abnormalities were present on intial laboratory studies, including elevated PT of 12.7, sodium 134, potassium 5.3, BUN 31, creatinine 5.62, phosphorus 5.5, alkaline phosphatase 145, and total serum protein of 6.2. Urine tox screen was significant for the presence of opiates. Patient was found to have an elevated d-dimer of 1518 and an elevated troponin of 0.31. EKG reportedly demonstrated no signs of acute ischemia. Patient was admitted to the ICU for ongoing workup and mangement. Patient was seen and examined at the bedside. He is currently sedated secondary to presence of endotrachial tube. His family is present at the bedside, and provided his recent medical history. Past Med Surg Social Fam HX - Past Medical History Medical history: diabetes, hyperlipidemia, hypertension, renal disease, other (Right below the knee amputation. History of osteomyelitis.) Additional medical history: osteomyelitis, abnormal cardiac stress test Psychiatric history: depression - Past Surgical History Additional surgical history: right bka. right plate in leg. right hip replacement. 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 - Social History Smoking Status: Current every day smoker Alcohol use: unknown Drug use: unknown - Family History Father Hx Family Cardiac Disorders: Yes Internal Medicine - H&P: Meds Amitriptyline HCl 50 mg PO DAILY 02/12/18 [History] Amlodipine Besylate 2.5 mg PO DAILY 02/12/18 [History] Atorvastatin [Lipitor] 40 mg PO HS 02/12/18 [History] Gabapentin [Neurontin] 400 mg PO TID 02/12/18 [History] Lisinopril [Zestril] 20 mg PO DAILY 02/12/18 [History] Morphine Immed Rel [Morphine Sulfate] 15 mg PO TID 02/12/18 [History] Morphine Sulfate [Morphine Sulfate ER] 60 mg PO BID 02/12/18 [History] PARoxetine HCl [Paroxetine HCl] 40 mg PO DAILY 02/12/18 [History] clonazePAM [Clonazepam] 1 mg PO TID 02/12/18 [History] Allergy/AdvReac Type Severity Reaction Status Date / Time No Known Allergies Allergy Verified 02/12/18 17:47 ROS unobtainable: due to endotracheal tube All Systems PM: A 10-system review of systems was performed and is negative for pertinent findings except as documented above in the HPI. - Constitutional Vitals: Temp Pulse Resp BP Pulse Ox 98.0 F 78 14 82/51 94 02/12/18 21:30 02/12/18 21:30 02/12/18 21:30 02/12/18 21:30 02/12/18 21:30 Exam: GENERAL: Sedated male patient lying in bed. He opens his eyes intermittently, but does not respond to stimulus. HEENT: Atraumatic and normocephalic. Endotracheal and nasogastric tubes in place. NECK: No evidence of acute abnormalities. Trachea is midline. No lymphadenopathy present. CARDIOVASCULAR: Regular rate and rhythm. S1 and S2 present. No murmurs, gallops, or rubs. RESPIRATORY: Patient is currently intubated and mechanically ventilated. No wheezes or rhonchi appreciated. ABDOMEN: Soft. No organomegaly or masses noted. EXTREMITIES: Mild dependent edema of the left lower extremity. Right lower extremity s/p AKA. Surgical incision appears to be healing well without evidence of infection. NEUROLOGIC: Unresponsive and sedated. Patient opens his eyes spontaneously. Internal Med - H&P Results - Labs CBC & Chem 7: 02/12/18 20:31 02/12/18 17:09 Labs: Short CBC 02/12/18 02/12/18 Range/Units 17:11 20:31 WBC 9.5 10.6 (4.3-11.1) K/mcL Hgb 11.6 L 11.1 L (12.9-16.9) g/dL Hct 37.2 L 35.7 L (37.5-50.1) % Plt Count 205 182 (140-400) K/mcL Neutrophils # 7.7 (1.6-8.9) K/mcL BMP 02/12/18 17:09 Sodium 134 L Potassium 5.3 H Chloride 104 Carbon Dioxide 20 L BUN 31 H Creatinine 5.62 H Glucose 138 H Calcium 9.0 Cardiac Enzymes 02/12/18 Range/Units 17:09 Troponin I 0.31 H* (< 0.04) ng/mL Liver Function 02/12/18 Range/Units 17:09 Total Bilirubin 0.8 (0.3-1.0) mg/dL Direct Bilirubin 0.2 (0.0-0.2) mg/dL AST 14 (13-39) Units/L ALT 14 (7-52) Units/L Alkaline Phosphatase 145 H (34-104) Units/L Albumin 3.6 (3.5-5.7) g/dL Urine 02/12/18 Range/Units 17:33 Urine Color Yellow (Yellow) Urine Clarity Clear (Clear) Urine pH 6.0 (5.0-8.0) pH Units Ur Specific [place] 1.016 (1.010-1.025) Urine Protein Negative (Neg-Trace) mg/dL Urine Glucose (UA) Normal (Normal) mg/dL - ABG Interpretation ABG results: 02/12/18 02/12/18 17:16 20:06 ABG pH 7.41 7.27 L D ABG pCO2 32 L 47 H ABG pO2 60 L 172 H D ABG HCO3 20 L 22 ABG Total CO2 21 23 ABG O2 Saturation 91 L 99 H ABG Base Excess -4 L -5 L - Impressions ITS Impressions Chest X-Ray 02/12/18 17:09 IMPRESSION: 1. Endotracheal tube tip terminates 3.1 cm above the nancy. 2. Nasogastric tube tip terminates in the region of the pylorus. 3. Cardiomegaly with mild to moderate congestive heart failure. D/ / 02/12/2018 17:56:32 Jenny Aranda MD / [facility] Interpreting Provider: Jenny Aranda MD Head CT 02/12/18 17:10 IMPRESSION: 1. Motion artifact limits evaluation. No definite acute intracranial abnormality. 2. Nonspecific metallic radiodensity measuring approximately 6 mm is present in the region of the posterior nasopharynx. 3. Scattered fluid is present in the nasal cavity and ethmoid air cells, of unclear significance. D/ / 02/12/2018 19:00:22 Sher Dorsey MD / [facility] Interpreting Provider: Sher Dorsey MD Chest CT 02/12/18 17:56 IMPRESSION: 1. Motion artifact limits evaluation. 2. Focal obstruction of the bronchus to the left lower lobe, which could be related to mucous plugging or aspiration. Consolidation is present in the infrahilar left lower lobe. 3. Extensive atelectasis present posteriorly in both lower lobes, with airspace consolidation not excluded. 4. Mild mediastinal lymphadenopathy, which may be reactive. D/ / 02/12/2018 19:07:18 Sher Dorsey MD / [facility] taker Interpreting Provider: Sher Dorsey MD - Assessment and plan (1) Sepsis Current Visit: Yes Status: Acute Assessment and plan: Patient met sepsis criteria upon presentation to the ED, with elevated tem perature, tachycardia, and tachypnea. Suspect infectious source to be respiratory, due to presence of left lower lobe consolidation seen on chest CT. His WBC count was WNL at 10.6 and lactic acid was normal on initial studies. Patient received one dose each of vancomycin, zosyn, and levaquin while in the ED. Though BP on arrival was elevated at 145/129, patient was hypotensive after sedation for RSI. - Lactated ringers @ 125mL/hr - Repeat lactic acid - Repeat CBC with AM laboratory studies - Broad-spectrum antibiotic coverage with vancomycin, zosyn, and levaquin - Close monitoring for signs of worsening clinical status Qualifiers: Sepsis type: sepsis due to unspecified organism Qualified Code(s): A41.9 - Sepsis, unspecified organism (2) Unresponsive state Current Visit: Yes Status: Acute Assessment and plan: Uncertain etiology. High suspicion for ACS vs. PE. Possibilities include: * ACS - Elevated troponin of 0.31 on initial laboratory studies. Patient has a strong family history of cardiac issues, and has multiple risk factors, i ncluding HTN, hyperlipidemia, and heavy smoking history. * PE - Patient has a Wells score of 6, and was found to be tachycardic and tachypneic at the time of arrival to the ED. Patient recently underwent surgery and has been relatively sedentary per family reports. D-dimer was elevated at 1518; however, CTA was unable to be obtained secondary to acute on chronic renal failure. * Respiratory failure secondary to presence of mucus plug * Accumulation of medication metabolites secondary to acute on chronic renal failure Plan is as follows: - Serial troponins - Repeat electrolyte and renal function panels in AM - Continue close clinical monitoring - Heparin gtt (3) Elevated troponin Current Visit: Yes Status: Acute Assessment and plan: Patient has had abnormal stress tests in the past, and has multiple cardiac risk factors. - Telemetry monitoring - Serial troponins Q6H - Heparin gtt initiated - Cardiology consult placed (4) Acute on chronic kidney failure Current Visit: Yes Status: Acute Assessment and plan: Patient has a history of chronic kidney disease stage III. Review of prior laboratory studies demonstrates baseline creatinine of 1.8-2.0. Patient's creatinine was found to be 5.62, with eGFR of 11. Suspect pre-renal etiology. - IV fluid hydration with LR @ 125mL/hr - Renally dose medications - Repeat renal function and electrolyte panels in AM - Nephrology consult placed Qualifiers: Acute renal failure type: unspecified Chronic kidney disease stage: stage 3 (moderate) Qualified Code(s): N17.9 - Acute kidney failure, unspecified; N18.3 - Chronic kidney disease, stage 3 (moderate) (5) Diabetes Current Visit: Yes Status: Acute Assessment and plan: Patient has a history of diabetes with diabetic neuropathy. He does not currently to be on a medication regimen for this problem. Initial laboratory studies showed hyperglycemia at 138. 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 Dixon is a 57 year old male All Systems PM: A 10-system review of systems was performed and is negative for pertinent findings except as documented above in the HPI. - Constitutional Vitals: Temp Pulse Resp BP Pulse Ox 98.0 F 76 14 93/58 96 02/13/18 04:02 02/13/18 03:00 02/13/18 03:50 02/13/18 03:50 02/13/18 03:50 Internal Med - H&P Results - Labs CBC & Chem 7: 02/13/18 05:11 02/13/18 05:11 Labs: Short CBC 02/12/18 02/12/18 02/13/18 Range/Units 17:11 20:31 05:11 WBC 9.5 10.6 8.5 (4.3-11.1) K/mcL Hgb 11.6 L 11.1 L 10.3 L (12.9-16.9) g/dL Hct 37.2 L 35.7 L 32.9 L (37.5-50.1) % Plt Count 205 182 163 (140-400) K/mcL Neutrophils # 7.7 6.5 (1.6-8.9) K/mcL BMP 02/12/18 02/13/18 17:09 05:11 Sodium 134 L 137 Potassium 5.3 H 5.2 H Chloride 104 107 Carbon Dioxide 20 L 22 L BUN 31 H 32 H Creatinine 5.62 H 3.79 H Glucose 138 H 108 H Calcium 9.0 8.4 L Cardiac Enzymes 02/12/18 02/12/18 Range/Units 17:09 23:49 Troponin I 0.31 H* 5.22 H* (< 0.04) ng/mL Liver Function 02/12/18 Range/Units 17:09 Total Bilirubin 0.8 (0.3-1.0) mg/dL Direct Bilirubin 0.2 (0.0-0.2) mg/dL AST 14 (13-39) Units/L ALT 14 (7-52) Units/L Alkaline Phosphatase 145 H (34-104) Units/L Albumin 3.6 (3.5-5.7) g/dL Urine 02/12/18 Range/Units 17:33 Urine Color Yellow (Yellow) Urine Clarity Clear (Clear) Urine pH 6.0 (5.0-8.0) pH Units Ur Specific [place] 1.016 (1.010-1.025) Urine Protein Negative (Neg-Trace) mg/dL Urine Glucose (UA) Normal (Normal) mg/dL - ABG Interpretation ABG results: 02/12/18 02/12/18 17:16 20:06 ABG pH 7.41 7.27 L D ABG pCO2 32 L 47 H ABG pO2 60 L 172 H D ABG HCO3 20 L 22 ABG Total CO2 21 23 ABG O2 Saturation 91 L 99 H ABG Base Excess -4 L -5 L - Impressions ITS Impressions Chest X-Ray 02/12/18 17:09 IMPRESSION: 1. Endotracheal tube tip terminates 3.1 cm above the nancy. 2. Nasogastric tube tip terminates in the region of the pylorus. 3. Cardiomegaly with mild to moderate congestive heart failure. D/ / 02/12/2018 17:56:32 Jenny Aranda MD / [facility] Interpreting Provider: Jenny Aranda MD Head CT 02/12/18 17:10 IMPRESSION: 1. Motion artifact limits evaluation. No definite acute intracranial abnormality. 2. Nonspecific metallic radiodensity measuring approximately 6 mm is present in the region of the posterior nasopharynx. 3. Scattered fluid is present in the nasal cavity and ethmoid air cells, of unclear significance. D/ / 02/12/2018 19:00:22 Sher Dorsey MD / [facility] Interpreting Provider: Sher Dorsey MD Chest CT 02/12/18 17:56 IMPRESSION: 1. Motion artifact limits evaluation. 2. Focal obstruction of the bronchus to the left lower lobe, which could be related to mucous plugging or aspiration. Consolidation is present in the infrahilar left lower lobe. 3. Extensive atelectasis present posteriorly in both lower lobes, with airspace consolidation not excluded. 4. Mild mediastinal lymphadenopathy, which may be reactive. D/ / 02/12/2018 19:07:18 Sher Dorsey MD / [place] Interpreting Provider: Sher Dorsey MD - Assessment and plan (1) Sepsis Current Visit: Yes Status: Acute Qualifiers: Sepsis type: sepsis due to unspecified organism Qualified Code(s): A41.9 - Sepsis, unspecified organism (2) Unresponsive state Current Visit: Yes Status: Acute (3) Acute on chronic kidney failure Current Visit: Yes Status: Acute Qualifiers: Acute renal failure type: unspecified Chronic kidney disease stage: stage 3 (moderate) Qualified Code(s): N17.9 - Acute kidney failure, unspecified; N18.3 - Chronic kidney disease, stage 3 (moderate) (4) Elevated troponin Current Visit: Yes Status: Acute (5) Diabetes Current Visit: Yes Status: Acute Qualifiers: Diabetes mellitus type: type 2 Diabetes mellitus watermelon harvesting supervisor insulin use: without watermelon harvesting supervisor use Diabetes mellitus complication status: with neurologic complications Diabetes mellitus complication detail: with unspecified neuropathy Qualified Code(s): E11.40 - Type 2 diabetes mellitus with diabetic neuropathy, unspecified (6) DVT prophylaxis Current Visit: Yes Status: Acute - Time Spent With Patient Total time spent is greater than 50% in coordination of care (as documented) at patient's floor/unit and/or counseling patient: - Attending Attestation Patient seen and examined. At least 30 minutes of critical care time was spent in the management of this patient. Chart reviewed. Case discussed with resident. Agree with assessment and plan below. For details see history of present illness below. 57-year-old male with history of hypertension, chronic kidney disease and recent right below the knee amputation complicated by osteomyelitis found unresponsive at home. Brought in by EMS and was subsequentl y intubated in the ED due to hypoxic respiratory failure based on initial ABG findings of a PaO2 in the 60s. Labs notable for elevated troponin, creatinine and elevated d-dimer. Urine toxicology unremarkable. EKG was unremarkable. Cannot rule out PE at this time because of patient's acute kidney injury. CT scan shows focal obstruction of the bronchus to the left lower lobe possibly secondary to mucous plugging versus aspiration. Patient started on heparin drip and broad-spectrum antibiotics. Nephrology and cardiology have been consulted. Hospital course: Patient's blood pressure dropped into the low 70s after initiation of sedation with propofol. Patient was switched over to reverse that and fentanyl drip. Again patient's blood pressure remained low. Fentanyl drip was discontinued and 1 liter bolus of fluid was given with with gradual rise in patient's blood pressure. Blood pressure improved to high 90s to 100 systolic. We will continue fluids at 1 25 mL an hour and monitor.
[2018-02-12] MEDS: Heparin 25,000 UNIT/500 ML D5W 25,000 UNIT/500 ML BAG IVC SCH (23:27)
[2018-02-13] MEDS: Ringers Solution, Lactated 1,000 ML IVC SCH ×2 (03:48→20:16)
[2018-02-13 05:23] LABS: Basophils % 0.2 %; Hematocrit 32.9 % (37.5-50.1); Hemoglobin 10.3 g/dL (12.9-16.9); Immature Granulocytes % 0.2 % (0-4); Lymphocytes # 1.3 K/mcL (0.6-4.6); Mean Corpuscular HGB Conc 31.3 g/dL (31.6-35.5); Mean Corpuscular Hemoglobin 28.8 pg (28.0-33.3); Mean Corpuscular Volume 91.9 fL (83.0-100.0); Mean Platelet Volume 9.1 fL (9.4-12.4); Monocytes # 0.6 K/mcL (0.0-1.3); Monocytes % 7.5 %; Neutrophils # 6.5 K/mcL (1.6-8.9); Platelet Count 163 K/mcL (140-400); Red Blood Count 3.58 M/mcL (4.19-5.50); Segmented Neutrophils % 77.1 %
[2018-02-13 05:42] LABS: Calcium 8.4 mg/dL (8.6-10.3); Potassium 5.2 mEq/L (3.5-5.1)
[2018-02-13 05:51] LABS: ABG Base Excess -3 mEq/L (-2 to 3); ABG HCO3 25 mEq/L (21-27); ABG Oxygen Saturation 94 % (95-98); ABG PCO2 56 mmHg (35-45); ABG PH 7.25 pH Units (7.32-7.45); ABG PO2 83 mmHg (85-104); ABG TCO2 26 mEq/L (20-26); Blood Gas Modality PRVC; Blood Gas PEEP 5 cm H2O; Blood Gas Respiration Rate 12; Blood Gas VT 550 cc
[2018-02-13] MEDS: Piperacillin/Tazobactam 3.375 GM in 0.9 % Sodium Chloride Mini Bag 100 ML IVPB SCH ×2 (06:14→17:57)
--- NOTE | 2018-02-13 06:47 | Pulmonology Consult Note ---
Addendum entered and electronically signed by So Cabrera 02/13/18 17:04: Original Note: <So Cabrera - Last Filed: 02/13/18 16:13> Time of Encounter: 06:47 Assessment and Plan (1) Respiratory arrest Current Visit: Yes Status: Acute Pt was initially hypoxic and unresponsive in the ED - intubated and began satting in the 90s Pt on many sedating medications at home - coupled with his JEET this could have precipitated his respiratory arrest ABG this morning showed pH 7.25 pCO2 56 pO2 83 HCO3 25 O2 sat 94% Pt self extubated this morning at 0700 and is currently tolerating BiPAP - ABG at 1500 showed pH 7.3, CO2 51, pO2 122, HCO3 25, and BE -2. Alert and oriented x3 with recollection of his ED visit last night Pt was becoming tachycardic and more agitated on BiPAP - Precedex was ordered to help decrease agitation Differentials include alcohol/opiate withdrawal vs hypercarbic/hypoxia encephalopathy (2) Unresponsive state Current Visit: Yes Status: Acute Initially unresponsive in the ED - subsequently intubated This could be secondary to his home medications vs ACS vs PE Head CT did not show any signs of CVA Nephro and Cardio consulted Self extubated this am and now A&O x3 (3) Acute on chronic kidney failure Current Visit: Yes Status: Acute Hx of CKD stage 3 Initial Cre 5.62 Cre today down to 3.79 Nephro consulted - appreciate recs Hold home medications as they are renally eliminated Continue fluids CPK was elevated at 1516, repeat in the morning Repeat BMP at 1500 showed a decrease in Cre to 3.14 Consider diuresis tomorrow pending CMP Qualifiers: Acute renal failure type: unspecified Chronic kidney disease stage: stage 3 (moderate) Qualified Code(s): N17.9 - Acute kidney failure, unspecified; N18.3 - Chronic kidney disease, stage 3 (moderate) (4) Elevated troponin Current Visit: Yes Status: Acute Initial trop in ED 0.31 - increasing to 6.49 this am Cardio consulted, awaiting repeat Echo for plan - appreciate recs Previous stress test in August 2017 demonstrated an exam that was negative for ischemia, has small sized, moderate intensity, fixed basal to mid inferior perfusion defect possibly due to prior infarct with gated EF 57%. On low dose ACS Heparin drip Continue to trend Trop (5) Diabetes Current Visit: Yes Status: Acute Accuchecks q6H HgbA1C 5.7 Qualifiers: Diabetes mellitus type: type 2 Diabetes mellitus fci insulin use: without fci use Diabetes mellitus complication status: with neurologic complications Diabetes mellitus complication detail: with unspecified neuropathy Qualified Code(s): E11.40 - Type 2 diabetes mellitus with diabetic neuropathy, unspecified (6) Elevated d-dimer Current Visit: Yes Status: Acute D-dimer 1518 on arrival Possibly secondary to PE but unable to do CTA due to pts JEET On low dose Heparin protocol currently B/L LE DVT study negative, PE less likely Other causes of increased D-dimer could be due to sepsis, respiratory arrest, or JEET on CKD (7) DVT prophylaxis Current Visit: Yes Status: Acute Low dose Heparin protocol History of Present Illness Consult date: 02/13/18 Requesting physician: Silva Clarke Reason for consult: dyspnea, hypoxemia, other (intubated) Chief complaint: unresponsive History of present illness: Pt is a 57 yo male who was brought to the ED last night by his son due to unresponsiveness. The son states he thought his father was taking a nap, but then was unable to wake him up later in the evening. The pt was initially responsive to sternal rub and protecting his airway in the ED but eventually was intubated due to unresponsiveness. He has a PMHx of type 2 DM, stage 3 CKD, and osteomyelitis. He had a right BKA revision 3 weeks ago. He self extubated this morning and is currently tolerating BiPAP and able to answer questions. He states he remembers being in the ED last night and felt short of breath, and remembers pulling the tube out this morning. He still feels short of breath but states it is better today than it was last night. He denies chest pain, abdominal pain, nausea, recent illness, or any other complaints at this time. Past Med Surg Social Fam HX - Past Medical History Medical history: non-contributory Additional medical history: osteomyelitis, abnormal cardiac stress test Psychiatric history: no psych history - Past Surgical History Additional surgical history: right bka. right plate in leg. right hip replacement. 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 - Social History Smoking Status: Former smoker Alcohol use: unknown Drug use: unknown - Family History Father Hx Family Cardiac Disorders: Yes Medications and Allergies Atorvastatin [Lipitor] 40 mg PO HS 02/12/18 [History] Gabapentin [Neurontin] 400 mg PO TID 02/12/18 [History] Morphine Sulfate [Morphine Sulfate ER] 60 mg PO BID 02/12/18 [History] RX: Amitriptyline HCl 50 mg PO DAILY 02/12/18 [History] RX: Amlodipine Besylate 2.5 mg PO DAILY 02/12/18 [History] RX: Lisinopril [Zestril] 20 mg PO DAILY 02/12/18 [History] RX: Morphine Immed Rel [Morphine Sulfate] 15 mg PO TID 02/12/18 [History] RX: PARoxetine HCl [Paroxetine HCl] 40 mg PO DAILY 02/12/18 [History] clonazePAM [Clonazepam] 1 mg PO TID 02/12/18 [History] Allergy/AdvReac Type Severity Reaction Status Date / Time No Known Allergies Allergy Verified 02/12/18 17:47 All Systems: The remainder of the systems were reviewed and are negative - Constitutional Constitutional: as per HPI, no fatigue - Cardiovascular Cardiovascular: as per HPI, no chest pain - Respiratory Respiratory: as per HPI, dyspnea - Gastrointestinal Gastrointestinal: as per HPI Physical Examination Vital Signs: Vital Signs, Last 4 Hours Temp Pulse Resp BP Pulse Ox 02/13/18 06:00 77 17 102/63 94 02/13/18 05:35 12 99/55 97 02/13/18 05:00 75 16 93/54 96 02/13/18 04:02 98.0 F 02/13/18 04:00 75 12 91/54 96 02/13/18 03:50 14 93/58 96 02/13/18 03:00 76 12 100/58 96 General appearance: no acute distress Eyes: nonicteric ENT: oropharynx moist Neck: supple Effort: normal Inspection: normal Auscultation: bilateral: clear Cardiovascular: regular rate and rhythm Gastrointestinal: soft, non-tender, non-distended Integumentary: normal Extremities: no edema, pulses normal, other (right BKA, with erythema and galindo at site of revision) normal mental status mood appropriate, affect normal Ventilator Settings Ventilator Settings: Ventilator Settings, Last 8 Hours Ventilator Tidal Volume 550 Setting Ventilator Tidal Volume 550 Setting Ventilator Tidal Volume 550 Setting Ventilator Tidal Volume 550 Setting Ventilator Tidal Volume 550 Setting Ventilator Tidal Volume 550 Setting Ventilator Tidal Volume 550 Setting Ventilator Tidal Volume 550 Setting Ventilator Tidal Volume 550 Setting Ventilator Tidal Volume 550 Setting Ventilator Tidal Volume 550 Setting Ventilator Tidal Volume 550 Setting Ventilator Tidal Volume 550 Setting Ventilator Respiratory Rate 16 Setting Ventilator Respiratory Rate 12 Setting Ventilator Respiratory Rate 12 Setting Ventilator Respiratory Rate 12 Setting Ventilator Respiratory Rate 12 Setting Ventilator Respiratory Rate 12 Setting Ventilator Respiratory Rate 12 Setting Ventilator Respiratory Rate 12 Setting Ventilator Respiratory Rate 12 Setting Ventilator Respiratory Rate 12 Setting Ventilator Respiratory Rate 12 Setting Ventilator Respiratory Rate 12 Setting Ventilator Respiratory Rate 12 Setting Actual Respiratory Rate 16 Actual Respiratory Rate 12 Actual Respiratory Rate 12 Actual Respiratory Rate 12 Actual Respiratory Rate 14 Actual Respiratory Rate 12 Actual Respiratory Rate 13 Actual Respiratory Rate 12 Actual Respiratory Rate 13 Actual Respiratory Rate 13 Actual Respiratory Rate 13 Actual Respiratory Rate 12 Positive End Expiratory 5 Pressure Positive End Expiratory 5 Pressure Positive End Expiratory 5 Pressure Positive End Expiratory 5 Pressure Positive End Expiratory 5 Pressure Positive End Expiratory 5 Pressure Positive End Expiratory 5 Pressure Positive End Expiratory 5 Pressure Positive End Expiratory 5 Pressure Positive End Expiratory 5 Pressure Positive End Expiratory 5 Pressure Positive End Expiratory 5 Pressure Positive End Expiratory 5 Pressure Peak Inspiratory Airway 26 Pressure Peak Inspiratory Airway 22 Pressure Peak Inspiratory Airway 23 Pressure Peak Inspiratory Airway 22 Pressure Peak Inspiratory Airway 22 Pressure Peak Inspiratory Airway 22 Pressure Peak Inspiratory Airway 23 Pressure Peak Inspiratory Airway 23 Pressure Peak Inspiratory Airway 23 Pressure Peak Inspiratory Airway 23 Pressure Peak Inspiratory Airway 23 Pressure Peak Inspiratory Airway 23 Pressure Results - Laboratory Findings CBC and BMP: 02/13/18 05:11 02/13/18 14:45 ABG ABG pH 7.25 pH Units (7.32-7.45) L 02/13/18 05:46 ABG pCO2 56 mmHg (35-45) H 02/13/18 05:46 ABG pO2 83 mmHg (85-104) L 02/13/18 05:46 ABG O2 Saturation 94 % (95-98) L 02/13/18 05:46 PT/INR, D-dimer PT 13.3 Seconds (9.4-12.1) H 02/12/18 20:31 D-Dimer 1518 ng/mLFEU (0-500) H 02/12/18 20:31 Abnormal lab findings: Abnormal lab results RBC 3.58 M/mcL (4.19-5.50) L 02/13/18 05:11 Hgb 10.3 g/dL (12.9-16.9) L 02/13/18 05:11 Hct 32.9 % (37.5-50.1) L 02/13/18 05:11 MCHC 31.3 g/dL (31.6-35.5) L 02/13/18 05:11 MPV 9.1 fL (9.4-12.4) L 02/13/18 05:11 PT 13.3 Seconds (9.4-12.1) H 02/12/18 20:31 D-Dimer 1518 ng/mLFEU (0-500) H 02/12/18 20:31 Heparin Anti-Xa, Unfract 0.28 IU/mL (0.30-0.70) L 02/13/18 05:11 ABG pH 7.25 pH Units (7.32-7.45) L 02/13/18 05:46 ABG pCO2 56 mmHg (35-45) H 02/13/18 05:46 ABG pO2 83 mmHg (85-104) L 02/13/18 05:46 ABG O2 Saturation 94 % (95-98) L 02/13/18 05:46 ABG Base Excess -3 mEq/L (-2 to 3) L 02/13/18 05:46 Carboxyhemoglobin 7.5 % (0-5) H 02/12/18 17:12 Potassium 5.2 mEq/L (3.5-5.1) H 02/13/18 05:11 Carbon Dioxide 22 mEq/L (23-29) L 02/13/18 05:11 BUN 32 mg/dL (6-20) H 02/13/18 05:11 Creatinine 3.79 mg/dL (0.70-1.30) H 02/13/18 05:11 Est GFR ( Amer) 20 (> 60) L 02/13/18 05:11 Est GFR (Non-Af Amer) 17 (> 60) L 02/13/18 05:11 Glucose 108 mg/dL (70-105) H 02/13/18 05:11 POC Glucose 161 mg/dL (70-99) H 02/12/18 21:26 Calcium 8.4 mg/dL (8.6-10.3) L 02/13/18 05:11 Phosphorus 5.5 mg/dL (2.7-4.5) H 02/12/18 17:09 Alkaline Phosphatase 145 Units/L (34-104) H 02/12/18 17:09 Troponin I 6.49 ng/mL (< 0.04) H* 02/13/18 05:11 Serum Total Protein 6.2 g/dL (6.4-8.9) L 02/12/18 17:09 Urine Bilirubin Small (Negative) H 02/12/18 17:33 Salicylates < 2.5 mg/dL (15.0-30.0) L 02/12/18 17:09 Urine Opiates Screen Positive ng/mL (Ntbtgo=139) H 02/12/18 17:33 Acetaminophen < 10 mcg/mL (10-20) L 02/12/18 17:09 - Microbiology Findings Microbiology Findings: Microbiology, Last 48 Hours 02/12/18 17:35 Blood Culture - Preliminary Peripheral Venipuncture Culture is incubating and being continuously monitored for growth. Final report to follow. 02/12/18 17:11 Blood Culture - Preliminary Peripheral Venipuncture Culture is incubating and being continuously monitor ed for growth. Final report to follow. - Clinical Findings Intake & Output: Intake & Output 02/12/18 02/12/18 02/13/18 15:59 23:59 07:59 Intake Total 2463.6 / 2463.6 1000 / 1000 Output Total 450 / 450 Balance 2463.6 / 2463.6 550 / 550 Weight 99.6 kg 99.6 kg Consult Discharge Plan - Plan Referrals: NONE,PCP [Primary Care Provider] - <Hernandez Vallejo W - Last Filed: 02/13/18 16:50> Date of Encounter: 02/13/18 All Systems: The remainder of the systems were reviewed and are negative Physical Examination Vital Signs: Vital Signs, Last 4 Hours Temp Pulse Resp BP Pulse Ox 02/13/18 08:00 98.1 F 81 15 90/60 93 02/13/18 07:00 85 17 104/44 92 02/13/18 06:00 77 17 102/63 94 02/13/18 05:35 12 99/55 97 Ventilator Settings Ventilator Settings: Ventilator Settings, Last 8 Hours Ventilator Tidal Volume 550 Setting Ventilator Tidal Volume 550 Setting Ventilator Tidal Volume 550 Setting Ventilator Tidal Volume 550 Setting Ventilator Tidal Volume 550 Setting Ventilator Tidal Volume 550 Setting Ventilator Tidal Volume 550 Setting Ventilator Tidal Volume 550 Setting Ventilator Tidal Volume 550 Setting Ventilator Respiratory Rate 16 Setting Ventilator Respiratory Rate 12 Setting Ventilator Respiratory Rate 12 Setting Ventilator Respiratory Rate 12 Setting Ventilator Respiratory Rate 12 Setting Ventilator Respiratory Rate 12 Setting Ventilator Respiratory Rate 12 Setting Ventilator Respiratory Rate 12 Setting Ventilator Respiratory Rate 12 Setting Actual Respiratory Rate 16 Actual Respiratory Rate 12 Actual Respiratory Rate 12 Actual Respiratory Rate 12 Actual Respiratory Rate 14 Actual Respiratory Rate 12 Actual Respiratory Rate 13 Actual Respiratory Rate 12 Positive End Expiratory 5 Pressure Positive End Expiratory 5 Pressure Positive End Expiratory 5 Pressure Positive End Expiratory 5 Pressure Positive End Expiratory 5 Pressure Positive End Expiratory 5 Pressure Positive End Expiratory 5 Pressure Positive End Expiratory 5 Pressure Positive End Expiratory 5 Pressure Peak Inspiratory Airway 26 Pressure Peak Inspiratory Airway 22 Pressure Peak Inspiratory Airway 23 Pressure Peak Inspiratory Airway 22 Pressure Peak Inspiratory Airway 22 Pressure Peak Inspiratory Airway 22 Pressure Peak Inspiratory Airway 23 Pressure Peak Inspiratory Airway 23 Pressure Results - Laboratory Findings CBC and BMP: 02/13/18 05:11 02/13/18 14:45 ABG ABG pH 7.25 pH Units (7.32-7.45) L 02/13/18 05:46 ABG pCO2 56 mmHg (35-45) H 02/13/18 05:46 ABG pO2 83 mmHg (85-104) L 02/13/18 05:46 ABG O2 Saturation 94 % (95-98) L 02/13/18 05:46 PT/INR, D-dimer PT 13.3 Seconds (9.4-12.1) H 02/12/18 20:31 D-Dimer 1518 ng/mLFEU (0-500) H 02/12/18 20:31 Abnormal lab findings: Abnormal lab results RBC 3.58 M/mcL (4.19-5.50) L 02/13/18 05:11 Hgb 10.3 g/dL (12.9-16.9) L 02/13/18 05:11 Hct 32.9 % (37.5-50.1) L 02/13/18 05:11 MCHC 31.3 g/dL (31.6-35.5) L 02/13/18 05:11 MPV 9.1 fL (9.4-12.4) L 02/13/18 05:11 PT 13.3 Seconds (9.4-12.1) H 02/12/18 20:31 D-Dimer 1518 ng/mLFEU (0-500) H 02/12/18 20:31 Heparin Anti-Xa, Unfract 0.28 IU/mL (0.30-0.70) L 02/13/18 05:11 ABG pH 7.25 pH Units (7.32-7.45) L 02/13/18 05:46 ABG pCO2 56 mmHg (35-45) H 02/13/18 05:46 ABG pO2 83 mmHg (85-104) L 02/13/18 05:46 ABG O2 Saturation 94 % (95-98) L 02/13/18 05:46 ABG Base Excess -3 mEq/L (-2 to 3) L 02/13/18 05:46 Carboxyhemoglobin 7.5 % (0-5) H 02/12/18 17:12 Potassium 5.2 mEq/L (3.5-5.1) H 02/13/18 05:11 Carbon Dioxide 22 mEq/L (23-29) L 02/13/18 05:11 BUN 32 mg/dL (6-20) H 02/13/18 05:11 Creatinine 3.79 mg/dL (0.70-1.30) H 02/13/18 05:11 Est GFR ( Amer) 20 (> 60) L 02/13/18 05:11 Est GFR (Non-Af Amer) 17 (> 60) L 02/13/18 05:11 Glucose 108 mg/dL (70-105) H 02/13/18 05:11 POC Glucose 161 mg/dL (70-99) H 02/12/18 21:26 Hemoglobin A1c 5.7 % (-5.6) H 02/13/18 05:11 Calcium 8.4 mg/dL (8.6-10.3) L 02/13/18 05:11 Phosphorus 5.5 mg/dL (2.7-4.5) H 02/12/18 17:09 Alkaline Phosphatase 145 Units/L (34-104) H 02/12/18 17:09 Troponin I 6.49 ng/mL (< 0.04) H* 02/13/18 05:11 Serum Total Protein 6.2 g/dL (6.4-8.9) L 02/12/18 17:09 Urine Bilirubin Small (Negative) H 02/12/18 17:33 Salicylates < 2.5 mg/dL (15.0-30.0) L 02/12/18 17:09 Urine Opiates Screen Positive ng/mL (Nsmuve=458) H 02/12/18 17:33 Acetaminophen < 10 mcg/mL (10-20) L 02/12/18 17:09 - Microbiology Findings Microbiology Findings: Microbiology, Last 48 Hours 02/12/18 17:35 Blood Culture - Preliminary Peripheral Venipuncture Culture is incubating and being continuously monitored for growth. Final report to follow. 02/12/18 17:11 Blood Culture - Preliminary Peripheral Venipuncture Culture is incubating and being continuously monito red for growth. Final report to follow. - Clinical Findings Intake & Output: Intake & Output 02/12/18 02/13/18 02/13/18 23:59 07:59 15:59 Intake Total 2463.6 / 2463.6 1160 / 1160 500 / 500 Output Total 450 / 450 300 / 300 Balance 2463.6 / 2463.6 710 / 710 200 / 200 Weight 99.6 kg 99.6 kg - Attending Attestation I examined this patient and my medical decision-making was reviewed with the Resident Physician. I agree with the documented findings, disposition and treatment plan as described except to the extent set forth below. We independently had [id number] contact with the patient I spent 34min of Critical Care time with this patient. It involved decision making of high complexity to assess, manipulate, and support vital organ system failure and/or to prevent further life threatening deterioration of the patient's condition. The time involved in the performance of separately reportable procedures was not counted toward critical care time. Patient seen and examined at bedside I was called emergently to evaluate the patient after he had self extubated Labs, radiology, chart personally reviewed. Management was reviewed during multidisciplinary critical care rounds. 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 Respiratory status is tenuous however. I do not think that the patient has pulmonary embolus and he is on heparin we will obtain lower extremity duplex cannot send for CT angiogram because of acute kidney injury may be a candidate for VQ scan Cards: Suspected ACS on protocol with plan to consult cardiology will repeat ECG and blood pressure is tenuous but currently map is greater than 65 lactate is normal GI: Continue to monitor Nutrition: Nothing by mouth for now because of tenuous respiratory status Renal: Acute on chronic kidney injury possibly related to sepsis and hypotension he is responded to volume resuscitation UOP Monitored, Cont to Trend sCr and monitor Electrolytes. ID: I suspect the sepsis secondary to either pneumonia or possibility of the lower extremity infections status post amputation he is on broad-spectrum antibiotics for this reason with plan to de-escalate Heme/Onc: He is on heparin infusion continue to monitor H&H and platelets Endo: Glucose Monitored Integ/MSK: Skin Care per routine ICU Nursing Protocol to prevent ulcers. Lines: All lines examined without evidence of infection : Dispo: Monitor in ICU as patient has high risk for deterioration requiring r epeat intubation or need for vasopressor CODE: Full code
[2018-02-13 07:05] LABS: Estimated Average Glucose 117 mg/dl; Hemoglobin A1C 5.7 %
--- NOTE | 2018-02-13 07:19 | Anesthesia Evaluation PreOp ---
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: Denies Any Significant HX Other Medical History: Renal (CKD Stage 3) Anesthesia History: Past Anesthesia Alcohol Use: unknown Drug use: unknown Medications and Allergies Amitriptyline HCl 50 mg PO DAILY 02/12/18 [History] Amlodipine Besylate 2.5 mg PO DAILY 02/12/18 [History] Atorvastatin [Lipitor] 40 mg PO HS 02/12/18 [History] Gabapentin [Neurontin] 400 mg PO TID 02/12/18 [History] Lisinopril [Zestril] 20 mg PO DAILY 02/12/18 [History] Morphine Immed Rel [Morphine Sulfate] 15 mg PO TID 02/12/18 [History] Morphine Sulfate [Morphine Sulfate ER] 60 mg PO BID 02/12/18 [History] PARoxetine HCl [Paroxetine HCl] 40 mg PO DAILY 02/12/18 [History] clonazePAM [Clonazepam] 1 mg PO TID 02/12/18 [History] Allergy/AdvReac Type Severity Reaction Status Date / Time No Known Allergies Allergy Verified 02/12/18 17:47 - Meds/Allergy Pre-op Review Medications Reviewed: Yes Allergies Reviewed: Yes Beta Blockers on Current Med List: No Anesthesia Results - Labs 02/13/18 05:11 02/13/18 05:11 Anesthesia Exam Vital Signs/O2 Sat/Glucose, Most Recent Temp Pulse Resp BP Pulse Ox 98.0 F 77 17 102/63 94 02/13/18 04:02 02/13/18 06:00 02/13/18 06:00 02/13/18 06:00 02/13/18 06:00 Blood Glucose* 161 Height: 5'10"/1.78m Weight: 219 lbs/99.6 kg NPO (# of Hours): 8 - HEENT Mallampati: Intubated - COMM[employer] 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
[2018-02-13] MEDS: *HR* Heparin 5,000 UNIT/ML VIAL IVP PRN ×3 (07:34→23:33)
--- NOTE | 2018-02-13 11:26 | Cardiology Consult Note ---
<Moises Ochoa - Last Filed: 02/13/18 11:49> Date of Encounter: 02/13/18 Time of Encounter: 11:30 Assessment and Plan (1) Unresponsive state Current Visit: Yes Status: Acute Per Cardiology: Previous records reviewed and patient apparently found unresponsive at home. Currently intubated. Head CT with no mention of acute findings. Currently alert and oriented 3 and cooperative. (2) Respiratory arrest Current Visit: Yes Status: Acute Per Cardiology: Pulmonary managing. On antibiotics. CT results noted. Now extubated and on BiPAP. (3) Acute on chronic kidney failure Current Visit: Yes Status: Acute Per Cardiology: Appears to have history of CK D stage IIIa to 3B, presented with creatinine of 5.62. Nephrology consult pending. Qualifiers: Acute renal failure type: unspecified Chronic kidney disease stage: stage 3 (moderate) Qualified Code(s): N17.9 - Acute kidney failure, unspecified; N18.3 - Chronic kidney disease, stage 3 (moderate) (4) Elevated troponin Current Visit: Yes Status: Acute Per Cardiology: Elevated troponins with peak so far at 6.49 in setting of unresponsiveness and respiratory arrest. Mag 1.9 and potassium 5.2. Telemetry reviewed with average heart rate 79, sinus rhythm with occasional PVCs, no significant events noted. Patient had a nonexercise nuclear stress test August 2017 with perfusion imaging negative for ischemia, has small sized, moderate intensity, fixed basal to mid inferior perfusion defect possibly due to prior infarct with gated EF 57%. Echo pending. On heparin drip. Chest pain-free. Further recs after echo. We will discuss review Dr. Marsh. (5) Elevated d-dimer Current Visit: Yes Status: Acute Per Cardiology: Parents recent surgical intervention. D-dimer elevated at 1518, has venous duplex pending to rule out DVT. Discussion w patient/family: The assessment and plan as outlined above was discussed with the patient and/or family members who expressed understanding and agreement. All questions were answered. Thank you for involving us in the care of your patient. Please call w ith any questions. History of Present Illness Consult date: 02/13/18 Requesting physician: Nikia Curry Consult reason: Troponin History of present illness: Previous records reviewed: "Mr. Dixon is a 57 year old male with a medical history of hypertension, diabetes, chronic kidney disease stage III, and hyperlipidemia. 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 He was found to be unresponsive by his son this afternoon, and w as brought to the ED via EMS. Family states that the patient was noted to be sleeping in his recliner, which is normal for him. When his son tried to wake him several hours later, he was found to be unarousable. Per ED provider documentation, patient was found to be minimally responsive by EMS, and was noted to have decreased respiration. He was given a dose of narcan en route, with minimal response. Family denies any recent illness or acute complaints from the patient over the last few days. They do note that he was depressed recently, as his brother in April of this year. His sister stated that the possibility of the patient intentionally causing harm to himself could not be excluded". Cardiology consult for elevated troponins. Patient currently extubated on BiPAP. He denies any awareness of chest pain prior to event. Patient cannot provide details of what happened. Currently chest pain-free. He denies any palpitations. He reports no known history of CAD with no history of [place] or previous catheterization. Patient currently alert and oriented 3. Somewhat somnolent. No family at bedside. Past Med Surg Social Fam HX - Past Medical History Source: old records reviewed Medical history: non-contributory Additional medical history: osteomyelitis, abnormal cardiac stress test Psychiatric history: no psych history - Past Surgical History Additional surgical history: right bka. right plate in leg. right hip replacement. 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 - Social History Smoking Status: Former smoker Alcohol use: unknown Drug use: unknown - Family History Father Hx Family Cardiac Disorders: Yes Medications and Allergies Amitriptyline HCl 50 mg PO DAILY 02/12/18 [History] Amlodipine Besylate 2.5 mg PO DAILY 02/12/18 [History] Atorvastatin [Lipitor] 40 mg PO HS 02/12/18 [History] Gabapentin [Neurontin] 400 mg PO TID 02/12/18 [History] Lisinopril [Zestril] 20 mg PO DAILY 02/12/18 [History] Morphine Immed Rel [Morphine Sulfate] 15 mg PO TID 02/12/18 [History] PARoxetine HCl [Paroxetine HCl] 40 mg PO DAILY 02/12/18 [History] clonazePAM [Clonazepam] 1 mg PO TID 02/12/18 [History] OxyCODONE Immed Rel [Roxicodone 20 MG] 20 mg PO Q8H 02/13/18 [History] Allergy/AdvReac Type Severity Reaction Status Date / Time No Known Allergies Allergy Verified 02/12/18 17:47 ROS unobtainable: due to endotracheal tube, due to mental status All Systems Review: The remainder of the systems were reviewed and are negative - Cardiovascular Cardiovascular: as per HPI, dyspnea at rest, dyspnea on exertion Physical Examination Vital Signs, Last 4 Hours Temp Pulse Resp BP Pulse Ox 02/13/18 11:00 90 10 108/62 95 02/13/18 10:00 92 18 108/74 98 02/13/18 09:00 87 16 108/61 95 02/13/18 08:00 98.1 F 81 15 90/60 93 General: Conversant HEENT: Atraumatic, Normocephaly, Mucus Membranes Moist Neck: No JVD, Normal carotid pulses Cardiac: Reg Rate and Rhythm, Normal S1 and S2, No Murmur Lungs: Normal Breath Sounds, No Wheeze, Rales, Rhonchi, Other (On BiPAP) Neuro: Alert and responsive, No focal deficits noted Abdomen: Soft, Non-Tender Skin: No rashes noted on visualized skin Musculoskeletal: No Chest Wall Tenderness Extremities: No Clubbing, No Cyanosis, No Edema, Normal Pulses Results 02/13/18 05:11 02/13/18 05:11 Lab Results Laboratory Tests 08/15/17 02/12/18 02/12/18 09:49 17:09 17:11 WBC Hgb Hct Plt Count INR 1.1 D-Dimer Potassium Creatinine 5.62 H Est GFR (Non-Af Amer) 43 L 11 L Troponin I 0.31 H* Salicylates < 2.5 L Urine Opiates Screen Acetaminophen < 10 L Ur Barbiturates Screen Ur Phencyclidine Scrn Ur Amphetamines Screen U Benzodiazepines Scrn Urine Cocaine Screen U Marijuana (THC) Screen Ethyl Alcohol < 10 02/12/18 02/12/18 02/12/18 17:33 20:31 23:49 WBC Hgb Hct Plt Count INR D-Dimer 1518 H Potassium Creatinine Est GFR (Non-Af Amer) Troponin I 5.22 H* Salicylates Urine Opiates Screen Positive H Acetaminophen Ur Barbiturates Screen Negative Ur Phencyclidine Scrn Negative Ur Amphetamines Screen Negative U Benzodiazepines Scrn Negative Urine Cocaine Screen Negative U Marijuana (THC) Screen Negative Ethyl Alcohol 02/13/18 02/13/18 02/13/18 05:11 05:11 05:11 WBC 8.5 Hgb 10.3 L Hct 32.9 L Plt Count 163 INR D-Dimer Potassium 5.2 H Creatinine 3.79 H Est GFR (Non-Af Amer) 17 L Troponin I 6.49 H* Salicylates Urine Opiates Screen Acetaminophen Ur Barbiturates Screen Ur Phencyclidine Scrn Ur Amphetamines Screen U Benzodiazepines Scrn Urine Cocaine Screen U Marijuana (THC) Screen Ethyl Alcohol ITS Impressions Chest X-Ray 02/12/18 17:09 IMPRESSION: 1. Endotracheal tube tip terminates 3.1 cm above the nancy. 2. Nasogastric tube tip terminates in the region of the pylorus. 3. Cardiomegaly with mild to moderate congestive heart failure. D/ / 02/12/2018 17:56:32 Jenny Aranda MD / Ene [place] Interpreting Provider: Jenny Aranda MD Head CT 02/12/18 17:10 IMPRESSION: 1. Motion artifact limits evaluation. No definite acute intracranial abnormality. 2. Nonspecific metallic radiodensity measuring approximately 6 mm is present in the region of the posterior nasopharynx. 3. Scattered fluid is present in the nasal cavity and ethmoid air cells, of unclear significance. D/ / 02/12/2018 19:00:22 Sher Dorsey MD / Ene [place] Interpreting Provider: Sher Dorsey MD Chest CT 02/12/18 17:56 IMPRESSION: 1. Motion artifact limits evaluation. 2. Focal obstruction of the bronchus to the left lower lobe, which could be related to mucous plugging or aspiration. Consolidation is present in the infrahilar left lower lobe. 3. Extensive atelectasis present posteriorly in both lower lobes, with airspace consolidation not excluded. 4. Mild mediastinal lymphadenopathy, which may be reactive. D/ / 02/12/2018 19:07:18 Sher Dorsey MD / [place] Interpreting Provider: Sher Dorsey MD Chest X-Ray 02/13/18 06:46 IMPRESSION: Improved aeration of the lungs compared to the prior exam with some persistent bilateral interstitial opacities and left basilar atelectasis. D/ / Chandler Sheldon MD / Chandler Sheldon MD Interpreting Provider: Chandler Sheldon MD Active Medications Heparin Sodium (Porcine) (Heparin) 4,000 unit IVP Q6HR PRN PRN Reason: SEE COMMENTS Stop: 08/14/18 20:18 Heparin Sodium (Porcine) (Heparin) 2,000 unit IVP Q6H PRN PRN Reason: SEE COMMENTS Stop: 08/14/18 20:18 Last Admin: 02/13/18 07:34 Dose: 2,000 unit Lactated Ringer's (Lactated Ringers) 1,000 mls @ 125 mls/hr IVC .Q8H BETINA Stop: 08/14/18 19:01 Last Infusion: 02/13/18 08:41 Dose: 0 mls/hr Heparin Sodium/Dextrose (Heparin 25,000 Unit/500 Ml D5w) 25,000 unit in 500 mls @ 19.92 mls/hr IVC .Q24H BETINA; Protocol Stop: 08/14/18 20:31 Last Titration: 02/13/18 07:35 Dose: 11.93 unit/kg/hr, 24 mls/hr Piperacillin Sod/Tazobactam (Sod 3.375 gm/ Sodium Chloride) 100 mls @ 25 mls/hr IVPB Q12HR BETINA Stop: 08/15/18 06:01 Last Admin: 02/13/18 06:14 Dose: 25 mls/hr Vancomycin HCl (Vancocin) 0 each IVPB RPHPROT PRN PRN Reason: PULSE DOSE Stop: 08/15/18 00:46 - Imaging and Cardiology Stress Test: report reviewed Echo: pending - EKG Interpretation EKG results cardiology: personally reviewed (Sinus tachycardia in the 100s, comparable to baseline ECG during stress test) Consult Discharge Plan - Plan Referrals: NONE,PCP [Primary Care Provider] - <Sahra Marsh - Last Filed: 02/13/18 18:46> - Attending Attestation Patient was seen and evaluated independently by me. Findings, assessment and plan were discussed at length with patient, questions answered. Agree with nurse practitioner's documentation. Addition as follows, 57 yo CM ho CKD3, DM, HTN, recent R-AKA for osteomyelitis. P/w unresponsiveness requiring short-term intubation, acidemia with JEET on CKD. Consulted for Trop 6s, No chest pain, no dynamic ECG changes, TTE EF55-6-% w/o RWMA, nl RV. 2018 SPECT suspected inferior infarct w/o ischemia. DD 1518. Patient had 6-8 hours of intermittent hypotension 80s/50s for 6 hours overnight. A: NSTEMI, type II vs type I, no RWMA, nl EF Acute PE in ddx, no CTA due to JEET hypotensive episodes with acidemia sepsis JEET on CKD Ho possible infarct on SPECT 2018 P: trend trop till down trending if cp, obtain ECG c/w heparin drip LE duplex rec V/Q scan LHC when able, need input from nephrology Sahra Marsh MD, PhD Assessment and Plan Discussion w patient/family: The assessment and plan as outlined above was discussed with the patient and/or family members who expressed understanding and agreement. All questions were answered. Thank you for involving us in the care of your patient. Please call with any questions. History of Present Illness History of present illness: Mr. Dixon is a 57 year old male All Systems Review: The remainder of the systems were reviewed and are negative Physical Examination Vital Signs, Last 4 Hours Temp Pulse Resp BP Pulse Ox 02/13/18 16:37 100 F H 02/13/18 16:16 16 98/71 99 02/13/18 15:52 118 02/13/18 15:00 118 16 102/78 93 02/13/18 14:58 18 104/67 9 Results 02/13/18 05:11 02/13/18 14:45 Lab Results 02/12/18 02/12/18 02/12/18 17:09 20:31 20:31 WBC 10.6 Hgb 11.1 L Hct 35.7 L Plt Count 182 INR 1.2 D-Dimer 1518 H Sodium 134 L Potassium 5.3 H Chloride 104 Carbon Dioxide 20 L BUN 31 H Creatinine 5.62 H Glucose 138 H Calcium 9.0 Magnesium 1.9 Total Bilirubin 0.8 AST 14 ALT 14 Alkaline Phosphatase 145 H Troponin I 0.31 H* TSH 0.774 02/12/18 02/13/18 02/13/18 23:49 05:11 05:11 WBC 8.5 Hgb 10.3 L Hct 32.9 L Plt Count 163 INR D-Dimer Sodium 137 Potassium 5.2 H Chloride 107 Carbon Dioxide 22 L BUN 32 H Creatinine 3.79 H Glucose 108 H Calcium 8.4 L Magnesium Total Bilirubin AST ALT Alkaline Phosphatase Troponin I 5.22 H* TSH 02/13/18 02/13/18 05:11 14:45 WBC Hgb Hct Plt Count INR D-Dimer Sodium 140 Potassium 4.6 Chloride 109 H Carbon Dioxide 24 BUN 31 H Creatinine 3.14 H Glucose 84 Calcium 9.1 Magnesium Total Bilirubin AST ALT Alkaline Phosphatase Troponin I 6.49 H* TSH
[2018-02-13 13:26] LABS: VBG HCO3 25 mEq/L (21-27); VBG PCO2 68 mmHg (41-51); VBG PH 7.17 pH Units (7.32-7.42); VBG PO2 93 mmHg (25-50)
[2018-02-13 13:41] LABS: ABG Base Excess -3 mEq/L (-2 to 3); ABG HCO3 25 mEq/L (21-27); ABG Oxygen Saturation 95 % (95-98); ABG PCO2 57 mmHg (35-45); ABG PH 7.25 pH Units (7.32-7.45); ABG PO2 93 mmHg (85-104); ABG TCO2 27 mEq/L (20-26); Blood Gas PEEP 6 cm H2O; Blood Gas Pressure Support 12 cm H2O; Blood Gas Respiration Rate 10
--- NOTE | 2018-02-13 14:31 | Nephrology Consult Note ---
Date of Encounter: 02/13/18 Time of Encounter: 10:15 Assessment and Plan (1) Acute on chronic kidney failure Current Visit: Yes Status: Acute Acute on chronic kidney injury with history of CKD stage III due to diabetic nephropathy. he has seen Dr. Hathaway in the past. -Etiology is likely prerenal in setting of patient found unresponsive and he evidence of hypoperfusion with documented blood pressures as low as 78/49. Patient denied dysuria, difficulty urinating, NSAID use, no recent imaging with contrast. -Creatinine 3.79, at admission 5.62 (baseline 1.6 to 1.8) -GFR 17 -BUN 32 -I&O: 1660/925 appropriate -urinalysis unremarkable Plan: -will order a retroperitoneal ultrasound to evaluate for post renal obstructive uropathy -continue oral hydration since patient received IVF at admission and creatinine has significantly improved and he has good urine output -continue to monitor serum creatinine -renal dose medications and avoid nephrotoxic agents -strict I&O Qualifiers: Acute renal failure type: unspecified Chronic kidney disease stage: stage 3 (moderate) Qualified Code(s): N17.9 - Acute kidney failure, unspecified; N18.3 - Chronic kidney disease, stage 3 (moderate) (2) Hyperkalemia Current Visit: Yes Status: Acute Hyperkalemia potassium 5.2 (5.3 at admission) -Minimally elevated, will continue to monitor. Patient is currently receiving IV fluids which will likely decrease (3) Hypertension Current Visit: Yes Status: Acute History of hypertension taking lisinopril. Patient is currently hypotensive so BP medications are being held. Qualifiers: Hypertension type: essential hypertension Qualified Code(s): I10 - Essential (primary) hypertension History of Present Illness - Reason for Consult Consult date: 02/12/18 Acute Kidney Injury Requesting physician: Nikia Curry - Chief Complaint Unresponsive - History of Present Illness Mr. Dixon is a 57-year-old male who presented to [facility] unresponsive. He is a past medical history of diabetes, chronic kidney disease stage III, hypertension. Nephrology was consulted due to an acute kidney injury. Upon my examination of the patient he was on BiPAP. There is no family at bedside. History was difficult to take as he cannot take the BiPAP off and it was difficult for him to talk with it on. Review of medical records to show that the family found the patient unresponsive and called EMS. He is currently being evaluated for an elevated troponin and ddimer. He was intubated, however self extubated this morning and has been on BiPAP. He had a below knee amputation revision 3 weeks ago. He has seen Dr. Hathaway in the past. He denies fever, chills, dysuria, difficulty urinating, hematuria. Denies taking NSAIDs. Past Med Surg Social Fam HX - Past Medical History Attestation: Yes The following information was validated with the patient. Source: patient Medical history: hypertension Additional medical history: osteomyelitis, abnormal cardiac stress test Psychiatric history: no psych history - Past Surgical History Surgical History: other Additional surgical history: right bka. right plate in leg. right hip replacement. 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 - Social History Smoking Status: Former smoker Alcohol use: unknown Drug use: unknown - Family History Father Hx Family Cardiac Disorders: Yes Medications and Allergies Amitriptyline HCl 50 mg PO DAILY 02/12/18 [History] Amlodipine Besylate 2.5 mg PO DAILY 02/12/18 [History] Atorvastatin [Lipitor] 40 mg PO HS 02/12/18 [History] Gabapentin [Neurontin] 400 mg PO TID 02/12/18 [History] Lisinopril [Zestril] 20 mg PO DAILY 02/12/18 [History] Morphine Immed Rel [Morphine Sulfate] 15 mg PO TID 02/12/18 [History] Morphine Sulfate [Morphine Sulfate ER] 60 mg PO BID 02/12/18 [History] PARoxetine HCl [Paroxetine HCl] 40 mg PO DAILY 02/12/18 [History] clonazePAM [Clonazepam] 1 mg PO TID 02/12/18 [History] Allergy/AdvReac Type Severity Reaction Status Date / Time No Known Allergies Allergy Verified 02/12/18 17:47 Review of Systems ROS unobtainable: other (on bipap) Exam - Vital Signs Vital signs: Initial Vital Signs Temp Pulse Resp BP Pulse Ox 101.6 F H 115 22 145/129 95 02/12/18 17:01 02/12/18 17:01 02/12/18 17:01 02/12/18 17:01 02/12/18 17:01 Vital Signs - Last 8 Hours Temp Pulse Resp BP Pulse Ox 02/13/18 14:00 102 15 104/67 94 02/13/18 13:00 97 16 125/67 96 02/13/18 12:00 99 18 109/59 99 02/13/18 11:53 98 F 02/13/18 11:00 90 10 108/62 95 02/13/18 10:00 92 18 108/74 98 02/13/18 09:00 87 16 108/61 95 02/13/18 08:00 98.1 F 81 15 90/60 93 02/13/18 07:00 85 17 104/44 92 Intake and Output 02/12/18 02/13/18 02/13/18 23:59 07:59 15:59 Intake Total 2463.6 / 2463.6 1160 / 1160 500 / 500 Output Total 450 / 450 475 / 475 Balance 2463.6 / 2463.6 710 / 710 25 / 25 Intake: IV Fluids 2463.6 / 2463.6 1160 / 1160 500 / 500 Diprivan 500 mg In 50 ml @ 0 5 / 5 mls/hr .ROUTE .STK-MED ONE Rx#: [id number] 0.9 % Sodium Chloride 1,000 ML 1000 / 1000 @ 999 mls/hr IVC .Q1H1M ONE Rx# :[id number] FentaNYL (PF) 1,000 MCG In 0.9 24.1 / 24.1 0 / 0 % Sodium Chloride 80 ML @ 50 MCG/HR 5 mls/hr IVC CONT [facility] Rx #:[id number] Heparin 25,000 UNIT/500 ML D5W 160 / 160 25,000 unit In 500 ml @ 9.9 UNIT/KG/HR 19.92 mls/hr IVC . Q24H BETINA Rx#:[id number] Versed 50 MG In 0.9 % Sodium 14.5 / 14.5 Chloride 90 ML @ 1 MG/HR 2 mls/ hr IVC CONT [facility] Rx#:[id number] Lactated Ringers 1,000 ML @ 125 1000 / 1000 1000 / 1000 500 / 500 mls/hr IVC .Q8H [facility] Rx#: [id number] Zosyn 3.375 GM In Water for inj 20 / 20 . (sterile) 20 ML @ 400 mls/hr IVP ONCE ONE Rx#:[id number] Levaquin Premix 750mg/150 mL 150 / 150 750 mg In 150 ml @ 100 mls/hr IVPB ONCE ONE Rx#:[id number] Vancocin 1,500 MG In 0.9 % 250 / 250 Sodium Chloride 250 ML @ 167 mls/hr IVPB ONCE ONE Rx#: [id number] Output: Catheter 200 / 200 475 / 475 Gastric Drainage 250 / 250 Other: Weight 99.6 kg 99.6 kg Blood Glucose* 161 Patient Weight 02/13/18 23:59 Weight 99.6 kg - General Appearance General appearance: well-developed, well-nourished, appears started age EENT: mucous membranes dry Neck: supple Respiratory: clear Cardiology: no edema, regular rate, regular rhythm, normal S1, normal S2 Gastrointestinal: normoactive bowel sounds, no tenderness, no guarding, no organomegaly Integumentary: no rash, warm and dry Neurologic: no asterixis, alert and oriented x3 Musculoskeletal: no erythema, no clubbing Additional Comments: Right below knee amputation Psychiatric: mood/affect appropriate, cooperative Results - Lab Results 02/13/18 05:11 02/13/18 05:11 Most recent lab results ABG pH 7.25 pH Units (7.32-7.45) L 02/13/18 13:38 ABG pCO2 57 mmHg (35-45) H 02/13/18 13:38 ABG pO2 93 mmHg (85-104) 02/13/18 13:38 ABG HCO3 25 mEq/L (21-27) 02/13/18 13:38 ABG O2 Saturation 95 % (95-98) 02/13/18 13:38 Calcium 8.4 mg/dL (8.6-10.3) L 02/13/18 05:11 Phosphorus 5.5 mg/dL (2.7-4.5) H 02/12/18 17:09 Magnesium 1.9 mg/dL (1.6-2.6) 02/12/18 17:09 Consult Discharge Plan - Plan Referrals: NONE,PCP [Primary Care Provider] -
[2018-02-13 14:55] LABS: ABG Base Excess -2 mEq/L (-2 to 3); ABG HCO3 25 mEq/L (21-27); ABG Oxygen Saturation 98 % (95-98); ABG PCO2 51 mmHg (35-45); ABG PO2 122 mmHg (85-104); ABG TCO2 26 mEq/L (20-26); Blood Gas Modality BiLevel
[2018-02-13 15:28] LABS: Calcium 9.1 mg/dL (8.6-10.3); Potassium 4.6 mEq/L (3.5-5.1)
[2018-02-13] MEDS: Dexmedetomidine HCl 400 MCG/100 ML MLS IVC SCH ×3 (16:17→23:33)
[2018-02-13] MEDS ORDERED: Acetaminophen 325 MG TABLET PO PRN (19:17)
[2018-02-13] MEDS ORDERED: Acetaminophen 650 MG RECTAL SUPP RC PRN (19:17)
[2018-02-13] MEDS ORDERED: Haloperidol Lactate 5 MG/ML VIAL IVP PRN (20:46)
[2018-02-13] MEDS: Heparin 25,000 UNIT/500 ML D5W 25,000 UNIT/500 ML BAG IVC SCH (21:26)
[2018-02-14] MEDS: Dexmedetomidine HCl 400 MCG/100 ML MLS IVC SCH ×2 (02:00→05:15)
[2018-02-14] MEDS: Ringers Solution, Lactated 1,000 ML IVC SCH ×4 (03:32→19:23)
[2018-02-14] MEDS: Piperacillin/Tazobactam 3.375 GM in 0.9 % Sodium Chloride Mini Bag 100 ML IVPB SCH ×3 (05:15→23:47)
[2018-02-14 05:58] LABS: Basophils % 0.3 %; Eosinophils # 0.1 K/mcL (0.0-0.6); Eosinophils % 0.6 %; Hematocrit 29.8 % (37.5-50.1); Hemoglobin 9.6 g/dL (12.9-16.9); Immature Granulocytes % 0.3 % (0-4); Lymphocytes # 1.3 K/mcL (0.6-4.6); Lymphocytes % 16.9 %; Mean Corpuscular HGB Conc 32.2 g/dL (31.6-35.5); Mean Corpuscular Hemoglobin 28.6 pg (28.0-33.3); Mean Corpuscular Volume 88.7 fL (83.0-100.0); Mean Platelet Volume 9.9 fL (9.4-12.4); Monocytes # 0.6 K/mcL (0.0-1.3); Monocytes % 8.2 %; Neutrophils # 5.8 K/mcL (1.6-8.9); Platelet Count 136 K/mcL (140-400); Red Blood Count 3.36 M/mcL (4.19-5.50); Red Cell Distribution Width 13.7 % (11.5-14.5); Segmented Neutrophils % 73.7 %
[2018-02-14 05:59] LABS: ABG Base Excess -2 mEq/L (-2 to 3); ABG HCO3 23 mEq/L (21-27); ABG Oxygen Saturation 98 % (95-98); ABG PCO2 37 mmHg (35-45); ABG PH 7.39 pH Units (7.32-7.45); ABG PO2 101 mmHg (85-104); ABG TCO2 24 mEq/L (20-26)
[2018-02-14 06:17] LABS: Albumin 3.3 g/dL (3.5-5.7); Albumin/Globulin Ratio 1.3 (1.1-2.2); Bilirubin,Total 0.7 mg/dL (0.3-1.0); Calcium 9.2 mg/dL (8.6-10.3); Globulin 2.6 g/dL (2.4-3.5); Magnesium 1.8 mg/dL (1.6-2.6); Phosphorous 2.8 mg/dL (2.7-4.5); Potassium 4.8 mEq/L (3.5-5.1); Total Protein 5.9 g/dL (6.4-8.9)
--- NOTE | 2018-02-14 06:43 | Pulmonology Progress Note ---
<Hernandez Vallejo W - Last Filed: 02/14/18 10:28> Objective PUL Vital signs: Last Vital Signs Temp 98.0 F 02/14/18 07:55 Pulse 46 02/14/18 08:00 Resp 19 02/14/18 08:00 BP 140/78 02/14/18 08:00 Pulse Ox 95 02/14/18 08:00 Results - Laboratory Findings CBC and BMP: 02/14/18 05:43 02/14/18 05:43 ABG ABG pH 7.39 pH Units (7.32-7.45) 02/14/18 05:56 ABG pCO2 37 mmHg (35-45) 02/14/18 05:56 ABG pO2 101 mmHg (85-104) 02/14/18 05:56 ABG O2 Saturation 98 % (95-98) 02/14/18 05:56 PT/INR, D-dimer PT 13.3 Seconds (9.4-12.1) H 02/12/18 20:31 D-Dimer 1518 ng/mLFEU (0-500) H 02/12/18 20:31 Abnormal lab findings: Abnormal lab results RBC 3.36 M/mcL (4.19-5.50) L 02/14/18 05:43 Hgb 9.6 g/dL (12.9-16.9) L 02/14/18 05:43 Hct 29.8 % (37.5-50.1) L 02/14/18 05:43 Plt Count 136 K/mcL (140-400) L 02/14/18 05:43 PT 13.3 Seconds (9.4-12.1) H 02/12/18 20:31 D-Dimer 1518 ng/mLFEU (0-500) H 02/12/18 20:31 VBG pH 7.17 pH Units (7.32-7.42) L* 02/13/18 13:18 VBG pCO2 68 mmHg (41-51) H 02/13/18 13:18 VBG pO2 93 mmHg (25-50) H 02/13/18 13:18 Carboxyhemoglobin 7.5 % (0-5) H 02/12/18 17:12 Chloride 109 mEq/L (98-107) H 02/14/18 05:43 Carbon Dioxide 20 mEq/L (23-29) L 02/14/18 05:43 BUN 28 mg/dL (6-20) H 02/14/18 05:43 Creatinine 2.05 mg/dL (0.70-1.30) H 02/14/18 05:43 Est GFR ( Amer) 41 (> 60) L 02/14/18 05:43 Est GFR (Non-Af Amer) 34 (> 60) L 02/14/18 05:43 Glucose 149 mg/dL (70-105) H 02/14/18 05:43 POC Glucose 161 mg/dL (70-99) H 02/12/18 21:26 Hemoglobin A1c 5.7 % (-5.6) H 02/13/18 05:11 AST 83 Units/L (13-39) H 02/14/18 05:43 Alkaline Phosphatase 106 Units/L (34-104) H 02/14/18 05:43 Creatine Kinase 3758 Units/L (30-223) H 02/14/18 05:43 Troponin I 6.49 ng/mL (< 0.04) H* 02/13/18 05:11 Serum Total Protein 5.9 g/dL (6.4-8.9) L 02/14/18 05:43 Albumin 3.3 g/dL (3.5-5.7) L 02/14/18 05:43 Urine Bilirubin Small (Negative) H 02/12/18 17:33 Vancomycin Trough 11 mcg/mL (5-10) H 02/13/18 17:41 Salicylates < 2.5 mg/dL (15.0-30.0) L 02/12/18 17:09 Urine Opiates Screen Positive ng/mL (Kifnxx=970) H 02/12/18 17:33 Acetaminophen < 10 mcg/mL (10-20) L 02/12/18 17:09 - Microbiology Findings Microbiology Findings: Microbiology, Last 48 Hours 02/13/18 19:57 Blood Culture - Preliminary Peripheral Venipuncture Culture is incubating and being continuously monitored for growth. Final report to follow. 02/13/18 19:57 Blood Culture - Preliminary Peripheral Venipuncture Culture is incubating and being continuously m onitored for growth. Final report to follow. 02/12/18 17:35 Blood Culture - Preliminary Peripheral Venipuncture Culture is incubating and being continuously monitored for growth. Final report to follow. 02/12/18 17:11 Blood Culture - Preliminary Peripheral Venipuncture Culture is incubating and being continuously monitored for growth. Final report to follow. - Clinical Findings Intake & Output: Intake & Output 02/13/18 02/14/18 02/14/18 23:59 07:59 15:59 Intake Total 1194 / 1194 200 / 200 Output Total 450 / 450 600 / 600 Balance 744 / 744 -400 / -400 Weight 98.4 kg Consult Discharge Plan - Plan Referrals: NONE,PCP [Primary Care Provider] - - Attending Attestation I examined this patient and my medical decision-making was reviewed with the Resident Physician. I agree with the documented findings, disposition and treatment plan as described except to the extent set forth below. We independently had [id number]-[id number] contact with the patient Patient seen and examined at bedside Labs, radiology, chart personally reviewed. Management was reviewed during multidisciplinary critical care rounds. 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: Breath a likely secondary to metabolic effect and medication this is improving head CT within normal limits Pulm: Acute hypoxic hypercapnic respiratory failure improved she has been weaned off BiPAP with acceptable oxygenation day continued treatment for pneumonia he will need follow-up CT for following his mediastinal adenopathy and demonstrated resolution of pneumonia in 4-6 weeks for which she can follow-up with pulmonary for Cards: Blood pressure monitored and stable he is on ACS protocol for troponin elevation echocardiogram shows preserved ejection fraction without acute focal wall motion abnormality cardiology following I suspect this is demand ischemia and likely can add beta toni today GI: Continue to monitor Nutrition: Advance diet today after speech and swallow evaluation Renal: Acute kidney injury improving mild rhabdo on fluids UOP Monitored, Cont to Trend sCr and monitor Electrolytes. ID: Continue treatment for presumed aspiration pneumonia he also has a history of murmur MRSA infection in the lower extremity was febrile overnight if continues to spike fever despite broad-spectrum antimicrobials with likely need infectious disease consultation Heme/Onc: Patient is on heparin infusion without significant change in H&H or platelets and no overt evidence of hemorrhage Endo: Glucose Monitored Integ/MSK: Patient has a recent revision for an [id number] amputation there is some mild surrounding erythema at this could be a nidus of infection with check CT scan of lower extremity. Skin Care per routine ICU Nursing Protocol to prevent ulcers. Lines: All lines examined without evidence of infection : Dispo: Stable for transfer to stepdown unit for ongoing care CODE: Full <So Cabrera - Last Filed: 02/14/18 13:00> Date of Encounter: 02/14/18 Time of Encounter: 06:43 Assessment and Plan (1) Respiratory arrest Current Visit: Yes Status: Acute Pt was initially hypoxic and unresponsive in the ED - intubated and began satting in the 90s Pt on many sedating medications at home - coupled with his JEET this could have precipitated his respiratory arrest ABG this morning showed pH 7.39 pCO2 37 pO2 101 HCO3 23 O2 sat 98% Pt tolerated BiPAP and is now currently sating 98% on RA Pt remains confused even though he is no longer hypercarbic Pt was becoming tachycardic and more agitated on BiPAP - Precedex was ordered to help decrease agitation - currently on 0.5 Precedex Differentials include alcohol/opiate withdrawal vs hypercarbic/hypoxic encephalopathy Pt became febrile overnight, consider PNA vs less likely PE vs sepsis as other differentials Pt doing well and tolerating being off the BiPAP, likely will transfer out of ICU today (2) Unresponsive state Current Visit: Yes Status: Acute Initially unresponsive in the ED - subsequently intubated This could be secondary to his home medications vs ACS vs PE Head CT did not show any signs of CVA Nephro and Cardio consulted Currently alert but confused ST evaluated him - they state he did well with nectar thick liquids but recommend holding solid foods at this time as pt seemed to have some problems, likely secondary to the Precedex. They will re-evaluate as he is de-escalated from the Precedex and make further recs as necessary. (3) Acute on chronic kidney failure Current Visit: Yes Status: Acute Hx of CKD stage 3 Initial Cre 5.62 Cre today down to 2.05 Nephro consulted - appreciate recs Hold home medications as they are renally eliminated Continue oral fluids and IV maintenance CPK yesterday was elevated at 1516, repeat today increased to 3758 Qualifiers: Acute renal failure type: unspecified Chronic kidney disease stage: stage 3 (moderate) Qualified Code(s): N17.9 - Acute kidney failure, unspecified; N18.3 - Chronic kidney disease, stage 3 (moderate) (4) Elevated troponin Current Visit: Yes Status: Acute Initial trop in ED 0.31 - increasing to 6.49 Cardio consulted, repeat Echo showed LVEF 55-60% with normal wall motion Previous stress test in August 2017 demonstrated an exam that was negative for ischemia, has small sized, moderate intensity, fixed basal to mid inferior perfusion defect possibly due to prior infarct with gated EF 57%. 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 Diabetes mellitus complication status: with neurologic complications Diabetes mellitus complication detail: with unspecified neuropathy Qualified Code(s): E11.40 - Type 2 diabetes mellitus with diabetic neuropathy, unspecified (6) Elevated d-dimer Current Visit: Yes Status: Acute D-dimer 1518 on arrival Possibly secondary to PE but unable to do CTA due to pts JEET On low dose Heparin protocol currently B/L LE DVT study negative, PE less likely Other causes of increased D-dimer could be due to sepsis, respiratory arrest, or JEET on CKD (7) Osteomyelitis Current Visit: Yes Status: Chronic Pt has had right BKA for chronic osteomyelitis Had a revision with an inch of bone removed 3 weeks ago Pt has had elevated CPK which increased from 1516 yesterday to [address] non-contrast of right lower extremity demonstrated right [id number] amputation with postsurgical changes as well as placement of antibiotic beads. Soft tissue edema of the stomach suggesting cellulitis. No specific CT evidence of osteomyelitis although MRI would be more sensitive. No evidence of discrete drainable fluid collection to suggest abscess. No evidence of soft tissue gas. Qualifiers: Osteomyelitis type: other chronic Osteomyelitis location: tibia Laterality: right Qualified Code(s): M86.661 - Other chronic osteomyelitis, right tibia and fibula (8) DVT prophylaxis Current Visit: Yes Status: Acute Low dose Heparin protocol Subjective Principal diagnosis: unresponsive Interval history: Pt is currently off BiPAP and satting 100%. He had an elevated temperature overnight but it returned to normal this morning. He remains confused but is alert to self and knows that he is in the hospital. He has trouble remembering why he is here and forming complete sentences. He can follow commands. His family noted he had a positive wound culture at the [facility] for pseudomonas and e. coli - we are awaiting records to confirm this. He also has a remote history of MRSA positive wound. His CPK increased from 1516 to 3758 overnight despite improving renal function. He will be transferred to [facility] today. 11:03 - call to hospitalist Dr. Baez was completed and he has accepted the patient for tomorrow. Objective PUL Vital signs: Last Vital Signs Temp 99.6 F 02/14/18 04:20 Pulse 50 02/14/18 06:00 Resp 12 02/14/18 06:00 BP 134/99 02/14/18 06:00 Pulse Ox 95 02/14/18 06:00 General appearance: no acute distress, alert Eyes: nonicteric ENT: oropharynx moist Neck: supple Effort: mildly labored Auscultation: bilateral: wheezes, rhonchi Cardiovascular: regular rate and rhythm Gastrointestinal: soft, non-tender, non-distended Integumentary: other (healing RLE wounds without increasing erythema or exudate) Extremities: no cyanosis, no edema, pulses normal (L UE and LLE) Musculoskeletal: other (Right BKA) other (confused, cannot answer questions about his HPI) affect normal Results - Laboratory Findings CBC and BMP: 02/14/18 05:43 02/14/18 05:43 ABG ABG pH 7.39 pH Units (7.32-7.45) 02/14/18 05:56 ABG pCO2 37 mmHg (35-45) 02/14/18 05:56 ABG pO2 101 mmHg (85-104) 02/14/18 05:56 ABG O2 Saturation 98 % (95-98) 02/14/18 05:56 PT/INR, D-dimer PT 13.3 Seconds (9.4-12.1) H 02/12/18 20:31 D-Dimer 1518 ng/mLFEU (0-500) H 02/12/18 20:31 Abnormal lab findings: Abnormal lab results RBC 3.36 M/mcL (4.19-5.50) L 02/14/18 05:43 Hgb 9.6 g/dL (12.9-16.9) L 02/14/18 05:43 Hct 29.8 % (37.5-50.1) L 02/14/18 05:43 Plt Count 136 K/mcL (140-400) L 02/14/18 05:43 PT 13.3 Seconds (9.4-12.1) H 02/12/18 20:31 D-Dimer 1518 ng/mLFEU (0-500) H 02/12/18 20:31 VBG pH 7.17 pH Units (7.32-7.42) L* 02/13/18 13:18 VBG pCO2 68 mmHg (41-51) H 02/13/18 13:18 VBG pO2 93 mmHg (25-50) H 02/13/18 13:18 Carboxyhemoglobin 7.5 % (0-5) H 02/12/18 17:12 Chloride 109 mEq/L (98-107) H 02/14/18 05:43 Carbon Dioxide 20 mEq/L (23-29) L 02/14/18 05:43 BUN 28 mg/dL (6-20) H 02/14/18 05:43 Creatinine 2.05 mg/dL (0.70-1.30) H 02/14/18 05:43 Est GFR ( Amer) 41 (> 60) L 02/14/18 05:43 Est GFR (Non-Af Amer) 34 (> 60) L 02/14/18 05:43 Glucose 149 mg/dL (70-105) H 02/14/18 05:43 POC Glucose 161 mg/dL (70-99) H 02/12/18 21:26 Hemoglobin A1c 5.7 % (-5.6) H 02/13/18 05:11 AST 83 Units/L (13-39) H 02/14/18 05:43 Alkaline Phosphatase 106 Units/L (34-104) H 02/14/18 05:43 Creatine Kinase 3758 Units/L (30-223) H 02/14/18 05:43 Troponin I 6.49 ng/mL (< 0.04) H* 02/13/18 05:11 Serum Total Protein 5.9 g/dL (6.4-8.9) L 02/14/18 05:43 Albumin 3.3 g/dL (3.5-5.7) L 02/14/18 05:43 Urine Bilirubin Small (Negative) H 02/12/18 17:33 Vancomycin Trough 11 mcg/mL (5-10) H 02/13/18 17:41 Salicylates < 2.5 mg/dL (15.0-30.0) L 02/12/18 17:09 Urine Opiates Screen Positive ng/mL (Thadxy=910) H 02/12/18 17:33 Acetaminophen < 10 mcg/mL (10-20) L 02/12/18 17:09 - Microbiology Findings Microbiology Findings: Microbiology, Last 48 Hours 02/13/18 19:57 Blood Culture - Preliminary Peripheral Venipuncture Culture is incubating and being continuously monitored for growth. Final report to follow. 02/13/18 19:57 Blood Culture - Preliminary Peripheral Venipuncture Culture is incubating and being continuously monitored for growth. Final report to follow. 02/12/18 17:35 Blood Culture - Preliminary Peripheral Venipuncture Culture is incubating and being continuously monitored for growth. Final report to follow. 02/12/18 17:11 Blood Culture - Preliminary Peripheral Venipuncture Culture is incubating and being continuously monitored for growth. Final report to follow. - Clinical Findings Intake & Output: Intake & Output 02/13/18 02/13/18 02/14/18 15:59 23:59 07:59 Intake Total 600 / 600 1194 / 1194 200 / 200 Output Total 475 / 475 450 / 450 300 / 300 Balance 125 / 125 744 / 744 -100 / -100 Weight 98.4 kg
[2018-02-14] MEDS ORDERED: Ringers Solution, Lactated 1,000 ML IVC SCH (08:15)
--- NOTE | 2018-02-14 09:28 | Nephrology Progress Note ---
Date of Encounter: 02/14/18 Time of Encounter: 09:20 - Assessment and Plan (1) Acute on chronic kidney failure Current Visit: Yes Status: Acute Acute on chronic kidney injury with history of CKD stage III due to diabetic nephropathy. he has seen Dr. Hathaway in the past. -Etiology is likely prerenal in setting of patient found unresponsive and he evidence of hypoperfusion with documented blood pressures as low as 78/49. Patient denied dysuria, difficulty urinating, NSAID use, no recent imaging with contrast. -Creatinine 2.05, at admission 5.62 (baseline 1.6 to 1.8) improving -GFR 34 -BUN 28 -creatinine kinase 3758 (1516) -I&O: 2954/1375 appropriate -urinalysis unremarkable -retroperitoneal ultrasound was unremarkable of the right kidney however left kidney cannot be visualized. Plan: -patient has had improved kidney function with conservative management. -continue oral hydration and IV fluids -continue to monitor serum creatinine -renal dose medications and avoid nephrotoxic agents -strict I&O Qualifiers: Acute renal failure type: unspecified Chronic kidney disease stage: stage 3 (moderate) Qualified Code(s): N17.9 - Acute kidney failure, unspecified; N18.3 - Chronic kidney disease, stage 3 (moderate) (2) Elevated creatine kinase Current Visit: Yes Status: Acute Elevated creatinine kinase has worsened in setting of prerenal acute kidney injury and being found unresponsive at home. He does take Lipitor which can cause myopathy. creatinine kinase 3758 (5266) worsened -continue IV fluids and will recheck creatinine kinase tomorrow. He has had improved creatinine in good urine output. This may be multifactorial due to his acute kidney injury, being found unresponsive at home, rhabdomyolysis, home Lipitor. -Hold home Lipitor (3) Hyperkalemia Current Visit: Yes Status: Acute Resolved Hyperkalemia. Likely secondary to acute kidney injury potassium 4.8 (5.3 at admission) (4) Hypertension Current Visit: Yes Status: Acute History of hypertension taking lisinopril. Blood pressure stable Qualifiers: Hypertension type: essential hypertension Qualified Code(s): I10 - Esse ntial (primary) hypertension Subjective Principal diagnosis: unresponsive Interval history: Patient seen and examined at bedside. He is alert and oriented times 3. He is off BiPAP today and is on room air. He denied fever, chills, nausea, vomiting, abdominal pain, dysuria. He has no complaints at this time. Objective - Vital Signs Vital signs: Vital Signs Temp Pulse Resp BP Pulse Ox 02/14/18 09:00 55 15 132/80 95 02/14/18 08:00 46 19 140/78 95 02/14/18 07:55 98.0 F 02/14/18 07:00 47 16 137/72 95 02/14/18 06:00 50 12 134/99 95 02/14/18 05:49 15 148/78 100 02/14/18 05:00 50 15 148/78 100 02/14/18 04:20 99.6 F 02/14/18 04:00 54 16 151/77 94 02/14/18 03:00 59 16 143/66 94 02/14/18 02:00 60 12 148/82 95 02/14/18 01:00 70 12 149/71 95 02/14/18 00:00 68 15 125/72 94 02/13/18 23:53 101.5 F H 02/13/18 23:00 68 15 127/66 94 02/13/18 22:00 78 12 135/79 94 02/13/18 21:00 79 12 114/73 94 02/13/18 20:20 101.8 F H 02/13/18 20:00 85 11 117/72 94 02/13/18 19:00 87 13 107/62 100 02/13/18 18:00 91 20 104/64 94 02/13/18 17:00 113 16 98/71 94 02/13/18 16:37 100 F H 02/13/18 16:16 16 98/71 99 02/13/18 15:52 118 02/13/18 15:00 118 16 102/78 93 02/13/18 14:58 18 104/67 9 02/13/18 14:00 102 15 104/67 94 02/13/18 13:00 97 16 125/67 96 02/13/18 12:00 99 18 109/59 99 02/13/18 11:53 98 F 02/13/18 11:00 90 10 108/62 95 02/13/18 10:00 92 18 108/74 98 Intake and Output 02/13/18 02/14/18 02/14/18 23:59 07:59 15:59 Intake Total 1194 / 1194 200 / 200 Output Total 450 / 450 600 / 600 Balance 744 / 744 -400 / -400 Intake: IV Fluids 1194 / 1194 200 / 200 PRECEDEX Premix 400 mcg In 100 200 / 200 200 / 200 ml @ 0.2 MCG/KG/HR 4.98 mls/hr IVC .Q20H5M [facility] Rx#:[id number] Heparin 25,000 UNIT/500 ML D5W 394 / 394 25,000 unit In 500 ml @ 9.9 UNIT/KG/HR 19.92 mls/hr IVC . Q24H [facility] Rx#:[id number] Zosyn 3.375 GM In 0.9 % Sodium 100 / 100 Chloride (Mini-Bag +) 100 ML @ 25 mls/hr IVPB Q12HR [facility] Rx#: [id number] Vancocin 1,750 MG In 0.9 % 500 / 500 Sodium Chloride 500 ML @ 334. 014 mls/hr IVPB ONCE ONE Rx#: [id number] Output: Catheter 450 / 450 600 / 600 Other: Weight 98.4 kg - General Appearance General appearance: Present: well-developed, well-nourished, appears started age EENT: Present: mucous membranes moist Neck: Present: supple Respiratory: Present: course breath sounds (Bilateral) Cardiology: Present: no edema, regular rate, regular rhythm Gastrointestinal: Present: normoactive bowel sounds, no tenderness, no guarding Integumentary: Present: no rash, warm and dry Neurologic: Present: no focal deficit, no asterixis, alert and oriented x3 Musculoskeletal: Present: no deformities Psychiatric: Present: mood/affect appropriate, cooperative - Lab 02/14/18 05:43 02/14/18 05:43 Most recent lab results ABG pH 7.39 pH Units (7.32-7.45) 02/14/18 05:56 ABG pCO2 37 mmHg (35-45) 02/14/18 05:56 ABG pO2 101 mmHg (85-104) 02/14/18 05:56 ABG HCO3 23 mEq/L (21-27) 02/14/18 05:56 ABG O2 Saturation 98 % (95-98) 02/14/18 05:56 Calcium 9.2 mg/dL (8.6-10.3) 02/14/18 05:43 Phosphorus 2.8 mg/dL (2.7-4.5) 02/14/18 05:43 Magnesium 1.8 mg/dL (1.6-2.6) 02/14/18 05:43 Consult Discharge Plan - Plan Referrals: NONE,PCP [Primary Care Provider] -
--- NOTE | 2018-02-14 10:38 | Cardiology Progress Note ---
Date of Encounter: 02/14/18 Time of Encounter: 10:00 Assessment and Plan (1) Unresponsive state Current Visit: Yes Status: Acute Per Cardiology: Currently alert and oriented 3 and cooperative. However, does not answer questions in appropriate context at times. No family bedside. (2) Respiratory arrest Current Visit: Yes Status: Acute Per Cardiology: Pulmonary managing. Now extubated and on RA. (3) Acute on chronic kidney failure Current Visit: Yes Status: Acute Per Cardiology: Appears to have history of CK D stage IIIa-IIIB, presented with creatinine of 5.62. Kidney function improving. Nephrology following. We will need to monitor closely if proceed to catheterization during hospital stay. Qualifiers: Acute renal failure type: unspecified Chronic kidney disease stage: stage 3 (moderate) Qualified Code(s): N17.9 - Acute kidney failure, unspecified; N18.3 - Chronic kidney disease, stage 3 (moderate) (4) Elevated troponin Current Visit: Yes Status: Acute Per Cardiology: Elevated troponins with peak so far at 6.49 in setting of unresponsiveness and respiratory arrest. Telemetry reviewed with average heart rate 58, no significant events noted. Patient had a nonexercise nuclear stress test August 2017 with perfusion imaging negative for ischemia, has small sized, moderate intensity, fixed basal to mid inferior perfusion defect possibly due to prior infarct with gated EF 57%. ECHO showed: Impressions: Technically sub-optimal due to clinical status. LVEF 55-60%. Normal left ventricular diastolic function. Normal LV chamber size, wall thickness and function. Normal right ventricular structure and function. On heparin drip. Chest pain-free. We will add aspirin. Consider adding beta toni, will hold for now due to bradycardia with heart rates in the 40s to 50s. Also, will consider addition of statin, has mildly elevated LFTs. I have limited discussion with patient regarding left heart catheterization, at this point unsure if patient comprehends procedure. We will continue to follow and have discussed with family if available. (5) Elevated d-dimer Current Visit: Yes Status: Acute Per Cardiology: Parents recent surgical intervention. D-dimer elevated at 1518, apparent preliminary venous duplex negative. Echo: Right Ventricle * Normal right ventricular structure and function. Consider VQ scan to rule out PE if clinically deemed appropriate. Discussion w patient/family: The assessment and plan as outlined above was discussed with the patient who expressed understanding and agreement. All questions were answered. Thank you for involving us in the care of your patient. Please call with any questions. Subjective Principal diagnosis: unresponsive Interval history: Patient denies any chest pain or shortness of breath. Denies any palpitations or dizziness. Still does not recall intense precipitating admission to the hospital. He denies any active bleeding or blood loss. Denies any past history of CAD. Patient is alert and oriented 3 and cooperative, however somnolent and sometimes does not answer questions with the same context. No family at bedside. Objective Vital Signs, Last 4 Hours Temp Pulse Resp BP Pulse Ox 02/14/18 10:00 53 16 137/71 97 02/14/18 09:00 55 15 132/80 95 02/14/18 08:00 46 19 140/78 95 02/14/18 07:55 98.0 F 02/14/18 07:00 47 16 137/72 95 General: Conversant, No Apparent Distress HEENT: Atraumatic, Normocephaly, Mucus Membranes Moist Neck: No JVD, Normal carotid pulses Cardiac: Reg Rate and Rhythm, Normal S1 and S2, No Murmur Lungs: Normal Breath Sounds, No Wheeze, Rales, Rhonchi, Other (Slightly diminished to bases) Neuro: Alert and responsive, No focal deficits noted Abdomen: Soft, Non-Tender Skin: No rashes noted on visualized skin Musculoskeletal: No Chest Wall Tenderness Extremities: No Clubbing, No Cyanosis, No Edema, Normal Pulses Results 02/14/18 05:43 02/14/18 05:43 Lab Results Laboratory Tests 02/12/18 02/12/18 02/13/18 17:09 23:49 05:11 WBC Hgb Hct Plt Count Potassium Creatinine Est GFR (Non-Af Amer) Magnesium 1.9 AST ALT Troponin I 0.31 H* 5.22 H* 6.49 H* TSH 0.774 02/14/18 02/14/18 05:43 05:43 WBC 7.8 Hgb 9.6 L Hct 29.8 L Plt Count 136 L Potassium 4.8 Creatinine 2.05 H Est GFR (Non-Af Amer) 34 L Magnesium AST 83 H ALT 23 Troponin I TSH Impressions Echocardiogram 02/13/18 07:27 Impressions: Technically sub-optimal due to clinical status. LVEF 55-60%. Normal left ventricular diastolic function. Normal LV chamber size, wall thickness and function. Normal right ventricular structure and function. Retroperitoneum Ultrasound 02/13/18 20:00 IMPRESSION: Unremarkable right kidney. Left kidney cannot be visualized. D/ / Grabiel Cross DO / Grabiel Cross DO Interpreting Provider: Grabiel Cross DO Intake & Output 02/11/18 02/12/18 02/13/18 02/14/18 23:59 23:59 23:59 23:59 Intake Total 2463.6 / 2463.6 2954 / 2954 200 / 200 Output Total 1375 / 1375 600 / 600 Balance 2463.6 / 2463.6 1579 / 1579 -400 / -400 Weight 99.6 kg 98.4 kg Active Medications Acetaminophen (Tylenol 650mg Supp) 650 mg RC Q6HR PRN PRN Reason: Fever Stop: 08/15/18 19:18 Last Admin: 02/13/18 19:59 Dose: 650 mg Acetaminophen (Tylenol) 650 mg PO Q6HR PRN PRN Reason: Fever Stop: 08/15/18 19:18 Haloperidol Lactate (Haldol) 2 mg IVP Q4HR PRN PRN Reason: Anxiety Stop: 08/16/18 00:01 Heparin Sodium (Porcine) (Heparin) 4,000 unit IVP Q6HR PRN PRN Reason: SEE COMMENTS Stop: 08/14/18 20:18 Heparin Sodium (Porcine) (Heparin) 2,000 unit IVP Q6H PRN PRN Reason: SEE COMMENTS Stop: 08/14/18 20:18 Last Admin: 02/13/18 23:33 Dose: 2,000 unit Lactated Ringer's (Lactated Ringers) 1,000 mls @ 125 mls/hr IVC .Q8H [facility] Stop: 08/14/18 19:01 Last Admin: 02/14/18 03:32 Dose: Not Given Heparin Sodium/Dextrose (Heparin 25,000 Unit/500 Ml D5w) 25,000 unit in 500 mls @ 19.92 mls/hr IVC .Q24H [facility]; Protocol Stop: 08/14/18 20:31 Last Titration: 02/13/18 23:34 Dose: 15.9 unit/kg/hr, 32 mls/hr Piperacillin Sod/Tazobactam (Sod 3.375 gm/ Sodium Chloride) 100 mls @ 25 mls/hr IVPB Q12HR [facility] Stop: 08/15/18 06:01 Last Admin: 02/14/18 05:15 Dose: 25 mls/hr Dexmedetomidine HCl (Precedex Premix) 400 mcg in 100 mls @ 4.98 mls/hr IVC .Q20H5M [facility]; Protocol Stop: 08/15/18 15:46 Last Admin: 02/14/18 05:15 Dose: 0.7 mcg/kg/hr, 17.43 mls/hr Lactated Ringer's (Lactated Ringers) 1,000 mls @ 125 mls/hr IVC .Q8H [facility] Stop: 08/16/18 08:16 Last Admin: 02/14/18 08:23 Dose: 125 mls/hr Vancomycin HCl (Vancocin) 0 each IVPB RPHPROT PRN PRN Reason: PULSE DOSE Stop: 08/15/18 00:46 - Imaging and Cardiology Echo: report reviewed - EKG Interpretation EKG results cardiology: other (Telemetry reviewed with average heart rate 58, sinus rhythm, no significant events noted) Consult Discharge Plan - Plan Referrals: NONE,PCP [Primary Care Provider] -
[2018-02-14] MEDS ORDERED: Aspirin Enteric Coated 81 MG Tablet PO SCH (10:45)
[2018-02-14] MEDS ORDERED: Haloperidol Lactate 5 MG/ML VIAL IVP PRN (12:33)
[2018-02-14] MEDS ORDERED: *HR* Heparin 5,000 UNIT/ML VIAL IVP PRN (12:33)
[2018-02-14] MEDS ORDERED: Acetaminophen 650 MG RECTAL SUPP RC PRN (12:33)
[2018-02-14] MEDS ORDERED: Dexmedetomidine HCl 400 MCG/100 ML MLS IVC SCH (12:33)
[2018-02-14] MEDS: Heparin 25,000 UNIT/500 ML D5W 25,000 UNIT/500 ML BAG IVC SCH (12:54)
[2018-02-14] MEDS: *HR* Heparin 5,000 UNIT/ML VIAL IVP PRN ×2 (15:55→22:06)
[2018-02-14] MEDS ORDERED: Levofloxacin 750 MG/150 ML 750 MG/150 ML BAG IVPB SCH (18:00)
[2018-02-14] MEDS: *HR* OxyCODONE Immed Rel 5 MG TABLET PO PRN (21:52)
[2018-02-15] MEDS: Ringers Solution, Lactated 1,000 ML IVC SCH ×3 (02:12→22:00)
[2018-02-15 04:11] LABS: Basophils % 0.3 %; Eosinophils # 0.2 K/mcL (0.0-0.6); Eosinophils % 2.6 %; Hematocrit 26.5 % (37.5-50.1); Hemoglobin 8.7 g/dL (12.9-16.9); Immature Granulocytes % 0.4 % (0-4); Lymphocytes % 28.4 %; Mean Corpuscular HGB Conc 32.8 g/dL (31.6-35.5); Mean Corpuscular Hemoglobin 28.9 pg (28.0-33.3); Monocytes # 0.5 K/mcL (0.0-1.3); Monocytes % 6.5 %; Neutrophils # 4.4 K/mcL (1.6-8.9); Platelet Count 162 K/mcL (140-400); Red Blood Count 3.01 M/mcL (4.19-5.50); Red Cell Distribution Width 13.8 % (11.5-14.5); Segmented Neutrophils % 61.8 %
[2018-02-15] MEDS: Heparin 25,000 UNIT/500 ML D5W 25,000 UNIT/500 ML BAG IVC SCH (04:16)
[2018-02-15 04:26] LABS: Magnesium 1.6 mg/dL (1.6-2.6); Phosphorous 2.3 mg/dL (2.7-4.5)
[2018-02-15 05:06] LABS: BUN/Creatinine Ratio 13 (6-26); Blood Urea Nitrogen 19 mg/dL (6-20); Calcium 8.6 mg/dL (8.6-10.3); Carbon Dioxide 23 mEq/L (23-29); Chloride 110 mEq/L (98-107); Creatine Kinase 1285 Units/L (30-223); Glucose 107 mg/dL (70-105); Osmolality,Calculated 289 (280-300); Potassium 3.5 mEq/L (3.5-5.1); Sodium 138 mEq/L (136-145); eGFR For Non-African Americans 51 (> 60)
[2018-02-15] MEDS: *HR* OxyCODONE Immed Rel 5 MG TABLET PO PRN (06:10)
[2018-02-15] MEDS ORDERED: *HR* Morphine Immed Rel 30 MG TABLET PO SCH (09:00)
--- NOTE | 2018-02-15 09:16 | Nephrology Progress Note ---
Date of Encounter: 02/15/18 Time of Encounter: 09:15 - Assessment and Plan (1) Acute on chronic kidney failure Current Visit: Yes Status: Acute Acute on chronic kidney injury with history of CKD stage III due to diabetic nephropathy. he has seen Dr. Hathaway in the past. -Etiology is likely prerenal in setting of patient found unresponsive and he evidence of hypoperfusion with documented blood pressures as low as 78/49. Patient denied dysuria, difficulty urinating, NSAID use, no recent imaging with contrast. -Creatinine 1.44, at admission 5.62 (baseline 1.6 to 1.8) improving -GFR 51 -creatinine kinase 1285 (2465) improving -I&O: 1629/1650 appropriate -urinalysis unremarkable -retroperitoneal ultrasound was unremarkable of the right kidney however left kidney cannot be visualized. Plan: -patient has had improved kidney function with conservative management. Will plan to sign off at this time since kidney function is markedly improved and c ontinuing to trend back to baseline as well as creatinine kinase. Please re- consult should the patient's creatinine not return to baseline or if it should worsen. -continue oral hydration and IV fluids -continue to monitor serum creatinine -renal dose medications and avoid nephrotoxic agents - monitor I&O Qualifiers: Qualified Code(s): N17.9 - Acute kidney failure, unspecified; N18.3 - Chronic kidney disease, stage 3 (moderate) (2) Elevated creatine kinase Current Visit: Yes Status: Acute Elevated creatinine kinase has worsened in setting of prerenal acute kidney injury and being found unresponsive at home. He does take Lipitor which can cause myopathy. -creatinine kinase 1285 (8700) improving -continue IV fluids and will recheck creatinine kinase tomorrow. He has had improved creatinine in good urine output. This may be multifactorial due to his acute kidney injury, being found unresponsive at home, rhabdomyolysis, home Lipitor. -Hold home Lipitor (3) Hyperkalemia Current Visit: Yes Status: Acute Resolved Hyperkalemia. Likely secondary to acute kidney injury potassium WNL (5.3 at admission) (4) Hypertension Current Visit: Yes Status: Acute History of hypertension taking lisinopril. Blood pressure stable Qualifiers: Qualified Code(s): I10 - Essential (primary) hypertension Subjective Principal diagnosis: unresponsive Interval history: Patient seen and examined at bedside. He is alert and oriented times 3. He denied fever, chills, nausea, vomiting, abdominal pain, dysuria, difficulty urinating. He has no complaints at this time. Objective - Vital Signs Vital signs: Vital Signs Temp Pulse Resp BP Pulse Ox 02/15/18 07:13 98.3 F 69 18 147/81 97 02/15/18 03:38 98.5 F 70 20 133/77 97 02/14/18 23:30 98.3 F 70 20 130/72 97 02/14/18 19:45 70 02/14/18 19:26 98.7 F 82 18 120/71 95 02/14/18 18:13 89 20 95 02/14/18 16:31 65 18 128/73 95 02/14/18 15:00 84 16 115/70 95 02/14/18 14:31 93 18 126/71 96 02/14/18 12:40 54 02/14/18 12:15 98.9 F 81 18 122/64 96 02/14/18 10:00 53 16 137/71 97 Intake and Output 02/14/18 02/15/18 02/15/18 23:59 07:59 15:59 Intake Total 1429 / 1429 1817.4 / 1817.4 60 / 60 Output Total 1050 / 1050 Balance 379 / 379 1817.4 / 1817.4 60 / 60 Intake: IV Fluids 1429 / 1429 1817.4 / 1817.4 PRECEDEX Premix 400 mcg In 100 5 / 5 ml @ 0.2 MCG/KG/HR 4.98 mls/hr IVC .Q20H5M [facility] Rx#:[id number] Heparin 25,000 UNIT/500 ML D5W 324 / 324 217.4 / 217.4 25,000 unit In 500 ml @ 9.9 UNIT/KG/HR 19.92 mls/hr IVC . Q24H [facility] Rx#:[id number] Lactated Ringers 1,000 ML @ 125 1000 / 1000 1000 / 1000 mls/hr IVC .Q8H [facility] Rx#: [id number] Zosyn 3.375 GM In 0.9 % Sodium 100 / 100 100 / 100 Chloride (Mini-Bag +) 100 ML @ 25 mls/hr IVPB Q8H [facility] Rx#: [id number] Vancocin 1,750 MG In 0.9 % 500 / 500 Sodium Chloride 500 ML @ 333.3 mls/hr IVPB ONCE ONE Rx#: [id number] Oral 60 / 60 Output: Catheter 1050 / 1050 Other: Meal Breakfast Percent of Meal Consumed 5% Stool Size Moderate Copious Stool Consistency formed soft Stool Color Brown Brown Yellow # Bowel Movements 1 # Bowel Movement Diapers 1 Weight 100.4 kg Blood Glucose* 152 Patient Weight 02/15/18 23:59 Weight 100.4 kg - General Appearance General appearance: Present: well-developed, well-nourished, appears started age EENT: Present: mucous membranes moist Neck: Present: supple Respiratory: Present: clear Cardiology: Present: no edema, regular rate, regular rhythm Gastrointestinal: Present: normoactive bowel sounds, no tenderness, no guarding Integumentary: Present: no rash, warm and dry Neurologic: Present: no focal deficit, no asterixis, alert and oriented x3 Musculoskeletal: Present: no deformities Psychiatric: Present: mood/affect appropriate, cooperative - Lab 02/15/18 03:48 02/15/18 03:48 Most recent lab results ABG pH 7.39 pH Units (7.32-7.45) 02/14/18 05:56 ABG pCO2 37 mmHg (35-45) 02/14/18 05:56 ABG pO2 101 mmHg (85-104) 02/14/18 05:56 ABG HCO3 23 mEq/L (21-27) 02/14/18 05:56 ABG O2 Saturation 98 % (95-98) 02/14/18 05:56 Calcium 8.6 mg/dL (8.6-10.3) 02/15/18 03:48 Phosphorus 2.3 mg/dL (2.7-4.5) L 02/15/18 03:48 Magnesium 1.6 mg/dL (1.6-2.6) 02/15/18 03:48 Consult Discharge Plan - Plan Referrals: NONE,PCP [Primary Care Provider] -
[2018-02-15] MEDS: Gabapentin 400 MG CAPSULE PO SCH ×3 (09:17→22:46)
[2018-02-15] MEDS: clonazePAM 0.5 MG TABLET PO SCH ×3 (09:17→22:46)
[2018-02-15] MEDS: Aspirin Enteric Coated 81 MG Tablet PO SCH (09:19)
[2018-02-15] MEDS: Lisinopril 20 MG TABLET PO SCH (09:22)
[2018-02-15] MEDS: Piperacillin/Tazobactam 3.375 GM in 0.9 % Sodium Chloride Mini Bag 100 ML IVPB SCH ×2 (09:24→15:57)
--- NOTE | 2018-02-15 10:44 | Cardiology Progress Note ---
Date of Encounter: 02/15/18 Time of Encounter: 10:43 Assessment and Plan (1) Elevated troponin Current Visit: Yes Status: Acute Elevated troponins, peak at 6.49 in setting of unresponsiveness and respiratory arrest. Telemetry reviewed with average heart rate 69, no significant events noted. Patient had a nonexercise nuclear stress test August 2017 with perfusion imaging negative for ischemia, has small sized, moderate intensity, fixed basal to mid inferior perfusion defect possibly due to prior infarct with gated EF 57%. TTE 02/13/18 LVEF 55-60%. Normal wall motion. On heparin drip since 02/12. Will stop since it has been 72 hours with downtrending HGB. Chest pain-free. Added ASA and low dose BB. Will consider addition of statin, has mildly elevated LFTs--recheck. I discussed possible LHC in the future, unsure if patient comprehends procedure. Continue to follow and will discuss with family if available. HGB has continued to downtrend. HGB on admission 02/12 was 11.6, is 8.7 today. Order stool guaiac. Recommend GI consult. (2) Elevated d-dimer Current Visit: Yes Status: Acute Recent surgical intervention. D-dimer elevated at 1518, apparent preliminary venous duplex negative. Echo normal right ventricular structure and function. Primary team can consider VQ scan to rule out PE if deemed clinically appropriate. (3) Respiratory arrest Current Visit: Yes Status: Acute Now extubated and on RA. (4) Unresponsive state Current Visit: Yes Status: Acute Currently alert and oriented 3 and cooperative. However, does not answer questions in appropriate context at times. No family bedside. (5) Acute on chronic kidney failure Current Visit: Yes Status: Acute Hx of CKD stage IIIa-IIIB, presented with creatinine of 5.62. Kidney function improving--creatinine 1.44 today. Nephrology following. We will need to monitor closely if has LHC during hospital stay. Qualifiers: Acute renal failure type: unspecified Chronic kidney disease stage: stage 3 (moderate) Qualified Code(s): N17.9 - Acute kidney failure, unspecified; N18.3 - Chronic kidney disease, stage 3 (moderate) Discussion w patient/family: The assessment and plan as outlined above was discussed with the patient and/or family members who expressed understanding and agreement. All questions were answered. Thank you for involving us in the care of your patient. Please call with any questions. I will discuss all the above with Dr. Marsh and make changes as necessary. Subjective Principal diagnosis: unresponsive Interval history: Denies acute cardiac complaints this AM. Objective Vital Signs, Last 4 Hours Temp Pulse Resp BP Pulse Ox 02/15/18 08:00 96 02/15/18 07:13 98.3 F 69 18 147/81 97 Vital Signs Temp Pulse Resp BP Pulse Ox 02/15/18 08:00 96 02/15/18 07:13 98.3 F 69 18 147/81 97 02/15/18 03:38 98.5 F 70 20 133/77 97 02/14/18 23:30 98.3 F 70 20 130/72 97 02/14/18 19:45 70 02/14/18 19:26 98.7 F 82 18 120/71 95 02/14/18 18:13 89 20 95 02/14/18 16:31 65 18 128/73 95 02/14/18 15:00 84 16 115/70 95 02/14/18 14:31 93 18 126/71 96 02/14/18 12:40 54 02/14/18 12:15 98.9 F 81 18 122/64 96 Intake and Output 02/14/18 02/15/18 02/15/18 23:59 07:59 15:59 Intake Total 1429 / 1429 1817.4 / 1817.4 60 / 60 Output Total 1050 / 1050 Balance 379 / 379 1817.4 / 1817.4 60 / 60 Intake: IV Fluids 1429 / 1429 1817.4 / 1817.4 PRECEDEX Premix 400 mcg In 100 5 / 5 ml @ 0.2 MCG/KG/HR 4.98 mls/hr IVC .Q20H5M [facility] Rx#:[id number] Heparin 25,000 UNIT/500 ML D5W 324 / 324 217.4 / 217.4 25,000 unit In 500 ml @ 9.9 UNIT/KG/HR 19.92 mls/hr IVC . Q24H [facility] Rx#:[id number] Lactated Ringers 1,000 ML @ 125 1000 / 1000 1000 / 1000 mls/hr IVC .Q8H [facility] Rx#: [id number] Zosyn 3.375 GM In 0.9 % Sodium 100 / 100 100 / 100 Chloride (Mini-Bag +) 100 ML @ 25 mls/hr IVPB Q8H [facility] Rx#: [id number] Vancocin 1,750 MG In 0.9 % 500 / 500 Sodium Chloride 500 ML @ 333.3 mls/hr IVPB ONCE ONE Rx#: [id number] Oral 60 / 60 Output: Catheter 1050 / 1050 Other: Meal Breakfast Percent of Meal Consumed 5% Stool Size Moderate Copious Stool Consistency formed soft Stool Color Brown Brown Yellow # Bowel Movements 1 # Bowel Movement Diapers 1 Weight 100.4 kg Blood Glucose* 152 Patient Weight 02/15/18 23:59 Weight 100.4 kg General: Conversant, No Apparent Distress HEENT: Atraumatic, Normocephaly, Mucus Membranes Moist Neck: No JVD, Normal carotid pulses Cardiac: Reg Rate and Rhythm, Normal S1 and S2, No Murmur Lungs: Normal Breath Sounds, No Wheeze, Rales, Rhonchi Neuro: Alert and responsive Abdomen: Soft, Non-Tender Skin: No rashes noted on visualized skin Musculoskeletal: No Chest Wall Tenderness Extremities: Other (right AKA) Results 02/15/18 03:48 02/15/18 03:48 Lab Results 02/15/18 02/15/18 02/15/18 03:48 03:48 03:48 WBC 7.2 Hgb 8.7 L Hct 26.5 L Plt Count 162 Sodium 138 Potassium 3.5 D Chloride 110 H Carbon Dioxide 23 BUN 19 Creatinine 1.44 H Glucose 107 H Calcium 8.6 Magnesium 1.6 Short CBC 02/15/18 Range/Units 03:48 WBC 7.2 (4.3-11.1) K/mcL Hgb 8.7 L (12.9-16.9) g/dL Hct 26.5 L (37.5-50.1) % Plt Count 162 (140-400) K/mcL Neutrophils # 4.4 (1.6-8.9) K/mcL BMP 02/15/18 Range/Units 03:48 Sodium 138 (136-145) mEq/L Potassium 3.5 D (3.5-5.1) mEq/L Chloride 110 H (98-107) mEq/L Carbon Dioxide 23 (23-29) mEq/L BUN 19 (6-20) mg/dL Creatinine 1.44 H (0.70-1.30) mg/dL Glucose 107 H (70-105) mg/dL Calcium 8.6 (8.6-10.3) mg/dL Impressions Lower Extremity CT 02/14/18 10:46 IMPRESSION: Status post right [id number] amputation with postsurgical changes as well as placement of antibiotic beads. Soft tissue edema of the stomach suggesting cellulitis. No specific CT evidence of osteomyelitis although MRI would be more sensitive. No evidence of discrete drainable fluid collection to suggest abscess. No evidence of soft tissue gas. Status post remote right total hip arthroplasty with remote ORIF of the right femoral diaphysis. No acute hardware failure of the hip arthroplasty. D/ / 02/14/2018 12:51:48 Ankush Ortiz MD / abdon Interpreting Provider: Ankush Ortiz MD Active Medications Acetaminophen (Tylenol 650mg Supp) 650 mg RC Q6HR PRN PRN Reason: Fever Stop: 08/15/18 19:18 Amitriptyline HCl (Elavil) 50 mg PO DAILY [facility] Stop: 08/17/18 09:01 Last Admin: 02/15/18 09:22 Dose: 50 mg Aspirin (Aspirin Ec) 81 mg PO DAILY [facility] Stop: 08/16/18 10:46 Last Admin: 02/15/18 09:19 Dose: 81 mg Clonazepam (Klonopin) 0.5 mg PO TID [facility] Stop: 08/17/18 09:01 Last Admin: 02/15/18 09:17 Dose: 0.5 mg Gabapentin (Neurontin) 400 mg PO TID [facility] Stop: 08/17/18 09:01 Last Admin: 02/15/18 09:17 Dose: 400 mg Haloperidol Lactate (Haldol) 2 mg IVP Q4HR PRN PRN Reason: Anxiety Stop: 08/16/18 00:01 Heparin Sodium (Porcine) (Heparin) 4,000 unit IVP Q6HR PRN PRN Reason: SEE COMMENTS Stop: 08/14/18 20:18 Heparin Sodium (Porcine) (Heparin) 2,000 unit IVP Q6H PRN PRN Reason: SEE COMMENTS Stop: 08/14/18 20:18 Last Admin: 02/14/18 22:06 Dose: 2,000 unit Heparin Sodium/Dextrose (Heparin 25,000 Unit/500 Ml D5w) 25,000 unit in 500 mls @ 19.92 mls/hr IVC .Q24H [facility]; Protocol Stop: 08/14/18 20:31 Last Titration: 02/15/18 05:23 Dose: 18.9 unit/kg/hr, 38.029 mls/hr Lactated Ringer's (Lactated Ringers) 1,000 mls @ 125 mls/hr IVC .Q8H [facility] Stop: 08/14/18 19:01 Last Admin: 02/15/18 02:12 Dose: 125 mls/hr Piperacillin Sod/Tazobactam (Sod 3.375 gm/ Sodium Chloride) 100 mls @ 25 mls/hr IVPB Q8H [facility] Stop: 08/16/18 16:01 Last Admin: 02/15/18 09:24 Dose: 25 mls/hr Lisinopril (Zestril) 20 mg PO DAILY [facility]; Protocol Stop: 08/17/18 09:01 Last Admin: 02/15/18 09:22 Dose: 20 mg Metoprolol Tartrate (Lopressor) 12.5 mg PO BID [facility] Stop: 08/17/18 09:01 Last Admin: 02/15/18 09:22 Dose: 12.5 mg Morphine Sulfate (Morphine Sulfate) 15 mg PO TID [facility] Stop: 08/17/18 09:01 Last Admin: 02/15/18 09:19 Dose: 15 mg Oxycodone HCl (Roxicodone) 20 mg PO Q8HR PRN; Protocol PRN Reason: Pain Stop: 08/16/18 21:43 Last Admin: 02/15/18 06:10 Dose: 20 mg Paroxetine HCl (Paxil) 40 mg PO DAILY [facility] Stop: 08/17/18 09:01 Last Admin: 02/15/18 09:00 Dose: 40 mg Vancomycin HCl (Vancocin) 0 each IVPB RPHPROT PRN PRN Reason: PULSE DOSE Stop: 08/15/18 00:46 - Imaging and Cardiology Echo: report reviewed - EKG Interpretation EKG results cardiology: other (12 hr tele AVG HR 69, SR, no significant pauses or arrhythmias noted) Consult Discharge Plan - Plan Referrals: NONE,PCP [Non-Partnered Physician] -
--- NOTE | 2018-02-15 11:03 | Internal Med Progress Note ---
Hospitalist Progress Note - Encounter Date of Encounter: 02/15/18 Time of Encounter: 10:05 - Subjective Interval History: 57 M with medical history of anxiety and depression, status post right BKA was admitted to the intensive care unit following a respiratory arrest, rhabdomyolysis, acute kidney injury, elevated troponins. The patient was extubated 02/13 and transferred to the floors. On evaluation of home medications, patient noted to be on morphine extended release 60 mg 3 times a day which was just filled prior to the day he was found unresponsive. It is possible that the patient may have had respiratory arrest as a result of high doses of opiates. At the time of review, he denies new complaints, he is requesting to get out of bed to chair and tolerating already, he saturating 100% on room air. PTOT evaluation is pending Renal function is improving and he has been afebrile since 02/13 We will obtain a MRSA screen and await cardio recs regarding Elevated troponin Patient is still on heparin infusion - Exam Vitals: Temp Pulse Resp BP Pulse Ox 98.3 F 69 18 147/81 96 02/15/18 07:13 02/15/18 07:13 02/15/18 07:13 02/15/18 07:13 02/15/18 08:00 Exam: GENERAL: Not in any form of distress, sitting up in bed HEENT: Atraumatic and normocephalic. Moist oral mucosa, not pale and not cyanotic NECK: Normal inspection CARDIOVASCULAR: Regular rate and rhythm. S1 and S2 present. No murmurs, gallops, or rubs. RESPIRATORY: Clear to auscultation bilaterally, no wheezes or rhonchi ABDOMEN: Soft. No organomegaly or masses noted. EXTREMITIES: Mild dependent edema of the left lower extremity. Right lower extremity s/p AKA. Surgical incision appears to be healing well without evidence of infection. NEUROLOGIC: Awake, alert, oriented 3, no focal deficits noted, moves all limbs spontaneously - Assessment and Plan (1) Sepsis Current Visit: Yes Status: Acute Assessment and Plan: Patient met sepsis criteria upon presentation to the ED, with elevated temperature, tachycardia, and tachypnea. Suspect infectious source to be respiratory, due to presence of left lower lobe consolidation seen on chest CT. His WBC count was WNL at 10.6 and lactic acid was normal on initial studies. Last episode of fever 02/13 101.5 No leukocytosis, tachycardia improved JEET improving , continue to monitor day of Vanco and Zosyn Blood cultures negative Ordered MRSA screen today, will discontinue Vanco if negative Patient is clinically improving (2) Unresponsive state Current Visit: Yes Status: Acute Assessment and Plan: Patient presented in respiratory arrest in an unresponsive state Head CT unremarkable Likely due to recent increase in patient's home dose of morphine, as well as patient taking oxycodone and clonazepam Resolved Patient is AAOX3, no suspicion for pE Elevated troponins without EKG or ECHO changes and no arrhythmias on tele Continue to monitor (3) Acute on chronic kidney failure Current Visit: Yes Status: Acute Assessment and Plan: Improving Continue to monitor Renal function now at baseline Discontinue IVF Avoid nephrotoxins Renal USS unremarkable but L kidney not visualized (4) Elevated troponin Current Visit: Yes Status: Acute Assessment and Plan: peak at 6.49 in setting of unresponsiveness and respiratory arrest and sepsis ECHO unremarkable for low EF , or WMA Has been on heparin drip for >72 hrs, cardio following Due to abnormal renal function, n LHC done. continue ASA and BB No statin due to rhabdo Cardio following (5) Diabetes Current Visit: Yes Status: Chronic Assessment and Plan: A1C 5.7 Patient has a history of diabetes with diabetic neuropathy. FS acceptable (6) DVT prophylaxis Current Visit: Yes Status: Acute Assessment and Plan: - Heparin gtt (7) Anemia Current Visit: Yes Status: Acute Assessment and Plan: Presenting Hb 10, Hb this a.m 8 No obvious source of bleeding On heparin drip Consider discontinuation of heparin Continue to monitor FOBT For transfusion if Hb <7 (8) Respiratory arrest Current Visit: Yes Status: Acute Assessment and Plan: Pt was initially hypoxic and unresponsive in the ED - intubated Now on RA,, extubated on 02/13 Discontinue precedex (9) Rhabdomyolysis Current Visit: Yes Status: Acute Assessment and Plan: CK on admission N but increased to peak of 3758 on 02/14 , with elevated trop Now 1285 Renal function is improving (10) Elevated d-dimer Current Visit: Yes Status: Acute Assessment and Plan: Bilateral LE USS r/o DVT Low suspicion for PE CT non-contrast of right lower extremity demonstrated right [id number]-dfx-ooca amputation with postsurgical changes as well as placement of antibiotic beads. Soft tissue edema of the stomach suggesting cellulitis. No specific CT evidence of osteomyelitis although MRI would be more sensitive. No evidence of discrete drainable fluid collection to suggest abscess. No evidence of soft tissue gas. Continue to monitor (11) Opiate dependence Current Visit: Yes Status: Chronic Assessment and Plan: Patient on high doses of morphine ER and IR, as well as oxycodone Continue home IR morphine prn Hold Oxycodone and ER morphine - Time Spent with Patient Total time spent is greater than 50% in coordination of care (as documented) at patient's floor/unit and/or counseling patient: Plan of Care Discussed with: patient Internal Medicine: Result - Labs CBC & Chem 7: 02/15/18 03:48 02/15/18 03:48 Labs: Short CBC 02/15/18 Range/Units 03:48 WBC 7.2 (4.3-11.1) K/mcL Hgb 8.7 L (12.9-16.9) g/dL Hct 26.5 L (37.5-50.1) % Plt Count 162 (140-400) K/mcL Neutrophils # 4.4 (1.6-8.9) K/mcL BMP 02/15/18 03:48 Sodium 138 Potassium 3.5 D Chloride 110 H Carbon Dioxide 23 BUN 19 Creatinine 1.44 H Glucose 107 H Calcium 8.6 - ABG Interpretation ABG results: ABG ABG pH 7.39 pH Units (7.32-7.45) 02/14/18 05:56 ABG pCO2 37 mmHg (35-45) 02/14/18 05:56 ABG pO2 101 mmHg (85-104) 02/14/18 05:56 ABG O2 Saturation 98 % (95-98) 02/14/18 05:56 PT/INR, D-dimer PT 13.3 Seconds (9.4-12.1) H 02/12/18 20:31 D-Dimer 1518 ng/mLFEU (0-500) H 02/12/18 20:31 - Impressions Impressions Lower Extremity CT 02/14/18 10:46 IMPRESSION: Status post right rypyg-plx-wlac amputation with postsurgical changes as well as placement of antibiotic beads. Soft tissue edema of the stomach suggesting cellulitis. No specific CT evidence of osteomyelitis although MRI would be more sensitive. No evidence of discrete drainable fluid collection to suggest abscess. No evidence of soft tissue gas. Status post remote right total hip arthroplasty with remote ORIF of the right femoral diaphysis. No acute hardware failure of the hip arthroplasty. D/ / 02/14/2018 12:51:48 Ankush Ortiz MD / abdon Interpreting Provider: Ankush Ortiz MD Consult Discharge Plan - Plan Referrals: NONE,PCP [Non-Partnered Physician] - __ (1) Sepsis Qualifiers: Sepsis type: sepsis due to unspecified organism Qualified Code(s): A41.9 - Sepsis, unspecified organism (3) Acute on chronic kidney failure Qualifiers: Acute renal failure type: unspecified Chronic kidney disease stage: stage 3 (moderate) Qualified Code(s): N17.9 - Acute kidney failure, unspecified; N18.3 - Chronic kidney disease, stage 3 (moderate) (5) Diabetes Qualifiers: Diabetes mellitus type: type 2 Diabetes mellitus intermediate frame tender insulin use: without prison use Diabetes mellitus complication status: with neurologic complications Diabetes mellitus complication detail: with unspecified neuropathy Qualified Code(s): E11.40 - Type 2 diabetes mellitus with diabetic neuropathy, unspecified (7) Anemia Qualifiers: Anemia type: unspecified type Qualified Code(s): D64.9 - Anemia, unspecified (9) Rhabdomyolysis Qualifiers: Rhabdomyolysis type: non-traumatic Qualified Code(s): M62.82 - Rhabdomyolysis (11) Opiate dependence Qualifiers: Substance use status: uncomplicated Qualified Code(s): F11.20 - Opioid dependence, uncomplicated
[2018-02-15] MEDS ORDERED: Aminoglycoside Consult 1 EACH MC ONE (16:15)
[2018-02-15] MEDS: *HR* Heparin 5,000 UNIT/ML VIAL SQ SCH (18:46)
[2018-02-15] MEDS: *HR* Morphine Immed Rel 30 MG TABLET PO PRN (18:54)
[2018-02-16] MEDS: *HR* Morphine Immed Rel 30 MG TABLET PO PRN ×2 (00:55→10:51)
[2018-02-16] MEDS: Piperacillin/Tazobactam 3.375 GM in 0.9 % Sodium Chloride Mini Bag 100 ML IVPB SCH ×2 (00:56→08:40)
[2018-02-16 05:24] LABS: Basophils % 0.6 %; Eosinophils # 0.4 K/mcL (0.0-0.6); Eosinophils % 5.1 %; Hemoglobin 9.8 g/dL (12.9-16.9); Immature Granulocytes % 0.3 % (0-4); Lymphocytes # 2.3 K/mcL (0.6-4.6); Lymphocytes % 32.8 %; Mean Corpuscular HGB Conc 31.6 g/dL (31.6-35.5); Mean Corpuscular Hemoglobin 28.5 pg (28.0-33.3); Mean Corpuscular Volume 90.1 fL (83.0-100.0); Mean Platelet Volume 9.4 fL (9.4-12.4); Monocytes # 0.5 K/mcL (0.0-1.3); Monocytes % 6.8 %; Neutrophils # 3.8 K/mcL (1.6-8.9); Platelet Count 222 K/mcL (140-400); Red Blood Count 3.44 M/mcL (4.19-5.50); Segmented Neutrophils % 54.4 %
[2018-02-16 05:42] LABS: Alanine Aminotransferase 19 Units/L (7-52); Albumin 3.1 g/dL (3.5-5.7); Albumin/Globulin Ratio 1.1 (1.1-2.2); Alkaline Phosphatase 94 Units/L (34-104); Aspartate Amino Transferase 29 Units/L (13-39); BUN/Creatinine Ratio 9 (6-26); Bilirubin,Total 0.6 mg/dL (0.3-1.0); Blood Urea Nitrogen 12 mg/dL (6-20); Carbon Dioxide 20 mEq/L (23-29); Chloride 110 mEq/L (98-107); Creatine Kinase 575 Units/L (30-223); Globulin 2.8 g/dL (2.4-3.5); Glucose 88 mg/dL (70-105); Osmolality,Calculated 291 (280-300); Potassium 3.8 mEq/L (3.5-5.1); Sodium 141 mEq/L (136-145); Total Protein 5.9 g/dL (6.4-8.9); eGFR For Non-African Americans 56 (> 60)
[2018-02-16 05:43] LABS: Albumin 3.4 g/dL (3.5-5.7); Albumin/Globulin Ratio 1.3 (1.1-2.2); Bilirubin,Direct 0.1 mg/dL (0.0-0.2); Bilirubin,Indirect 0.5 mg/dL (0.0-1.2); Bilirubin,Total 0.6 mg/dL (0.3-1.0); Globulin 2.6 g/dL (2.4-3.5)
[2018-02-16] MEDS: *HR* Heparin 5,000 UNIT/ML VIAL SQ SCH (06:24)
[2018-02-16] MEDS: Ringers Solution, Lactated 1,000 ML IVC SCH (06:25)
[2018-02-16] MEDS: clonazePAM 0.5 MG TABLET PO SCH ×2 (08:40→14:29)
[2018-02-16] MEDS: Gabapentin 400 MG CAPSULE PO SCH ×2 (08:40→14:29)
[2018-02-16] MEDS: Lisinopril 20 MG TABLET PO SCH (08:40)
[2018-02-16] MEDS: Aspirin Enteric Coated 81 MG Tablet PO SCH (08:40)
--- NOTE | 2018-02-16 09:55 | Cardiology Progress Note ---
Date of Encounter: 02/16/18 Time of Encounter: 09:53 Assessment and Plan (1) Elevated troponin Current Visit: Yes Status: Acute Peak troponin 6.49 in setting of unresponsiveness and respiratory arrest. Patient had a nonexercise nuclear stress test August 2017 with perfusion imaging negative for ischemia, has small sized, moderate intensity, fixed basal to mid inferior perfusion defect possibly due to prior infarct with gated EF 57%. TTE 02/13/18 LVEF 55-60%. Normal wall motion. Chest pain-free. On ASA and BB. Will add statin, LFTs back to normal. I discussed possible LHC. Mental status continues to improve. R/B/A discussed, pt agreeable. Was started on heparin drip 02/12, stopped yesterday due to downtrending HGB. HGB on admission 02/12 was 11.6, 8.7 yesterday. HGB improved today to 9.8, but there is concern if pt undergoes LHC and needs PCI/DAPT that HGB may downtrend again. Ordered stool guaiac. Consulted GI/discussed with Dr. Salmeron. Plan for LHC once okay from a GI standpoint. (2) Elevated d-dimer Current Visit: Yes Status: Acute Recent surgical intervention. D-dimer elevated at 1518, apparent preliminary venous duplex negative. Echo normal right ventricular structure and function. Primary team can consider VQ scan to rule out PE if deemed clinically appropria te. (3) Respiratory arrest Current Visit: Yes Status: Acute Now extubated and on RA. (4) Acute on chronic kidney failure Current Visit: Yes Status: Acute Hx of CKD stage IIIa-IIIB, presented with creatinine of 5.62. Kidney function improving--creatinine 1.32 today. Nephrology following. We will need to monitor closely if has LHC during hospital stay. Qualifiers: Acute renal failure type: unspecified Chronic kidney disease stage: stage 3 (moderate) Qualified Code(s): N17.9 - Acute kidney failure, unspecified; N18.3 - Chronic kidney disease, stage 3 (moderate) Discussion w patient/family: The assessment and plan as outlined above was discussed with the patient and/or family members who expressed understanding and agreement. All questions were answered. Thank you for involving us in the care of your patient. Please call with any questions. I will discuss all the above with Dr. Marsh and make changes as necessary. Subjective Principal diagnosis: unresponsive Interval history: Denies acute cardiac complaints this AM. HGB improved to 9.8 today after stopping heparin gtt yesterday. Renal function continues to improve. Objective Vital Signs, Last 4 Hours Temp Pulse Resp BP 02/16/18 08:09 98.6 F 74 16 154/88 02/16/18 06:44 56 Vital Signs Temp Pulse Resp BP Pulse Ox 02/16/18 08:09 98.6 F 74 16 154/88 02/16/18 06:44 56 02/16/18 04:30 98.3 F 76 18 149/85 95 02/16/18 00:21 98.4 F 76 20 134/75 96 02/15/18 23:04 68 02/15/18 22:56 97 02/15/18 19:14 98.4 F 63 18 128/76 97 02/15/18 18:47 69 18 96 02/15/18 14:00 74 18 98 02/15/18 11:54 98.4 F 75 18 143/75 98 02/15/18 10:07 75 18 97 Intake and Output 02/15/18 02/16/18 02/16/18 23:59 07:59 15:59 Intake Total 1580 / 1580 1600 / 1600 Output Total 625 / 625 Balance 1580 / 1580 975 / 975 Intake: IV Fluids 1100 / 1100 1600 / 1600 Lactated Ringers 1,000 ML @ 125 1000 / 1000 1000 / 1000 mls/hr IVC .Q8H BETINA Rx#: [id number] Zosyn 3.375 GM In 0.9 % Sodium 100 / 100 100 / 100 Chloride (Mini-Bag +) 100 ML @ 25 mls/hr IVPB Q8H BETNIA Rx#: [id number] Vancocin 1,750 MG In 0.9 % 500 / 500 Sodium Chloride 500 ML @ 333. 333 mls/hr IVPB Q24H BETINA Rx#: [id number] Oral 480 / 480 Output: Urine 625 / 625 Other: Meal Dinner Percent of Meal Consumed 50% Weight 102 kg Patient Weight 02/16/18 23:59 Weight 102 kg General: Conversant, No Apparent Distress HEENT: Atraumatic, Normocephaly, Mucus Membranes Moist Neck: No JVD, Normal carotid pulses Cardiac: Reg Rate and Rhythm, Normal S1 and S2, No Murmur Lungs: Normal Breath Sounds, No Wheeze, Rales, Rhonchi Neuro: Alert and responsive, No focal deficits noted Abdomen: Soft, Non-Tender Skin: No rashes noted on visualized skin Musculoskeletal: No Chest Wall Tenderness Extremities: Other (right BKA ) Results 02/16/18 04:55 02/16/18 04:55 Lab Results 02/16/18 02/16/18 02/16/18 04:55 04:55 04:55 WBC 7.0 Hgb 9.8 L Hct 31.0 L Plt Count 222 Sodium 141 Potassium 3.8 Chloride 110 H Carbon Dioxide 20 L BUN 12 Creatinine 1.32 H Glucose 88 Calcium 9.0 Total Bilirubin 0.6 0.6 AST 29 28 ALT 19 18 Alkaline Phosphatase 94 102 Short CBC 02/16/18 Range/Units 04:55 WBC 7.0 (4.3-11.1) K/mcL Hgb 9.8 L (12.9-16.9) g/dL Hct 31.0 L (37.5-50.1) % Plt Count 222 (140-400) K/mcL Neutrophils # 3.8 (1.6-8.9) K/mcL BMP 02/16/18 Range/Units 04:55 Sodium 141 (136-145) mEq/L Potassium 3.8 (3.5-5.1) mEq/L Chloride 110 H (98-107) mEq/L Carbon Dioxide 20 L (23-29) mEq/L BUN 12 (6-20) mg/dL Creatinine 1.32 H (0.70-1.30) mg/dL Glucose 88 (70-105) mg/dL Calcium 9.0 (8.6-10.3) mg/dL Liver Function 02/16/18 02/16/18 Range/Units 04:55 04:55 Total Bilirubin 0.6 0.6 (0.3-1.0) mg/dL Direct Bilirubin 0.1 (0.0-0.2) mg/dL AST 28 29 (13-39) Units/L ALT 18 19 (7-52) Units/L Alkaline Phosphatase 102 94 (34-104) Units/L Albumin 3.4 L 3.1 L (3.5-5.7) g/dL Impressions Lower Extremity CT 10/30/18 10:46 IMPRESSION: Status post right rmszy-hfz-cnwr amputation with postsurgical changes as well as placement of antibiotic beads. Soft tissue edema of the stomach suggesting cellulitis. No specific CT evidence of osteomyelitis although MRI would be more sensitive. No evidence of discrete drainable fluid collection to suggest abscess. No evidence of soft tissue gas. Status post remote right total hip arthroplasty with remote ORIF of the right femoral diaphysis. No acute hardware failure of the hip arthroplasty. D/ / 02/14/2018 12:51:48 Ankush Ortiz MD / abdon Interpreting Provider: Ankush Ortiz MD Active Medications Acetaminophen (Tylenol 650mg Supp) 650 mg RC Q6HR PRN PRN Reason: Fever Stop: 08/15/18 19:18 Amitriptyline HCl (Elavil) 50 mg PO DAILY [facility] Stop: 08/17/18 09:01 Last Admin: 02/16/18 08:40 Dose: 50 mg Aspirin (Aspirin Ec) 81 mg PO DAILY [facility] Stop: 08/16/18 10:46 Last Admin: 02/16/18 08:40 Dose: 81 mg Clonazepam (Klonopin) 0.5 mg PO TID [facility] Stop: 08/17/18 09:01 Last Admin: 02/16/18 08:40 Dose: 0.5 mg Gabapentin (Neurontin) 400 mg PO TID [facility] Stop: 08/17/18 09:01 Last Admin: 02/16/18 08:40 Dose: 400 mg Haloperidol Lactate (Haldol) 2 mg IVP Q4HR PRN PRN Reason: Anxiety Stop: 08/16/18 00:01 Heparin Sodium (Porcine) (Heparin) 5,000 unit SQ Q12HCO [facility] Stop: 08/17/18 18:01 Last Admin: 02/16/18 06:24 Dose: 5,000 unit Piperacillin Sod/Tazobactam (Sod 3.375 gm/ Sodium Chloride) 100 mls @ 25 mls/hr IVPB Q8H [facility] Stop: 08/16/18 16:01 Last Admin: 02/16/18 08:40 Dose: 25 mls/hr Lisinopril (Zestril) 20 mg PO DAILY [facility]; Protocol Stop: 08/17/18 09:01 Last Admin: 02/16/18 08:40 Dose: 20 mg Metoprolol Tartrate (Lopressor) 12.5 mg PO BID [facility] Stop: 08/17/18 09:01 Last Admin: 02/16/18 08:39 Dose: 12.5 mg Morphine Sulfate (Morphine Sulfate) 15 mg PO TID PRN PRN Reason: Pain Stop: 08/17/18 09:01 Last Admin: 02/16/18 00:55 Dose: 15 mg Paroxetine HCl (Paxil) 40 mg PO DAILY [facility] Stop: 08/17/18 09:01 Last Admin: 02/16/18 08:40 Dose: 40 mg - Imaging and Cardiology Echo: report reviewed - EKG Interpretation EKG results cardiology: other (12 hr tele AVG HR 63, SR, no significant pauses or arrhythmias) Consult Discharge Plan - Plan Referrals: NONE,PCP [Non-Partnered Physician] -
[2018-02-16 11:12] VITALS: BP 136/79
--- NOTE | 2018-02-16 12:05 | Gastroenterology Consult Note ---
Date of Encounter: 02/16/18 Time of Encounter: 10:30 - Assessment and plan (1) Anemia Current Visit: Yes Status: Acute Assessment and plan: Hgb on admission was 11.6 and trended down to 8.7 yesterday. Today, Hgb 9.8. Continue to monitor CBC. Transfuse PRBC as needed. Plan for EGD and colonoscopy tomorrow. Clear liquid diet today, no red or purple. NPO at midnight. If not clear by 6 AM, give 2 tap water enemas. Qualifiers: Anemia type: unspecified type Qualified Code(s): D64.9 - Anemia, unspecified (2) Elevated troponin Current Visit: Yes Status: Acute Assessment and plan: Cardiology plans for [facility] following GI workup of anemia. - Time Spent With Patient Total time spent is greater than 50% in coordination of care (as documented) at patient's floor/unit and/or counseling patient: GI History of Present Illness - Data of Consult Patient: new to practice Consult date: 02/16/18 Requesting Physician: Preston Mayer MD - Consult Narrative Reason for consult: anemia History of present illness: Mr. Dixon is a 57 year old male with PMHx of DM, HLD, HTN, CKD, right BKA, CKD stage III. 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 He was found to be unresponsive by his son, and was brought to the ED via EMS. Family states that the patient was noted to be sleeping in his recliner, which is normal for him. When his son tried to wake him several hours later, he was found to be unarousable. Per ED provider documentation, patient was found to be minimally responsive by EMS, and was noted to have decreased respiration. He was given a dose of narcan en route, with minimal response. He was intubated in the ED and transferred to the ICU. Toponin peaked at 6.49 and left heart cath was discussed. Hgb on admission was 11.6 and trended down to 8.7 yesterday. Today, Hgb 9.8. We have been consulted to evaluate his anemia prior to [facility]. The patient denies abdominal pain, nausea, vomiting, hematemesis, terry na, or hematochezia. Procedures: No record NSAIDs: None Anticoagulation: None Past Med Surg Social Fam HX - Past Medical History Medical history: non-contributory Additional medical history: osteomyelitis, abnormal cardiac stress test Psychiatric history: no psych history - Past Surgical History Surgical History: other Additional surgical history: right bka. right plate in leg. right hip replacement. 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 - Social History Smoking Status: Former smoker Alcohol use: unknown Drug use: unknown - Family History Father Hx Family Cardiac Disorders: Yes - Gastrointestinal Gastrointestinal: Present: as per HPI - Constitutional Constitutional: as per HPI - EENT Eyes: as per HPI Ears: Present: as per HPI Nose, mouth and throat: Present: as per HPI - Cardiovascular Cardiovascular ROS: Present: as per HPI - Respiratory Respiratory IM: Present: as per HPI - Genitourinary Genitourinary: Absent: change in color, Urinary frequency - Neurological ROS Neurological GI: Present: as per HPI - Hematologic/Lymphatic Hematologic/Lymphatic pediatric: Present: as per HPI - Musculoskeletal Musculoskeletal ROS GI: Present: as per HPI - Integumentary Integumentary GI: Present: as per HPI - Psychiatric ROS Psychiatric GI: Present: as per HPI - Endocrine Endocrine IM: Present: as per HPI - Constitutional Vitals: Temp Pulse Resp BP Pulse Ox 98.6 F 53 14 136/79 98 02/16/18 11:11 02/16/18 11:11 02/16/18 11:11 02/16/18 11:11 02/16/18 11:11 General appearance: Present: cooperative, A&O X 3, no acute distress, answers questions appropriately - Head Head exam: Present: atraumatic, normocephalic - Eye Eye exam: Present: normal appearance, sclera anicteric - ENT ENT exam: Present: mucous membranes moist - Neck Neck exam general surgery: Present: normal inspection, trachea midline - Respiratory Respiratory exam: Present: CTAB. Absent: rales, rhonchi, wheezes - Cardiovascular Cardiovascular exam: Present: RRR, +S1, +S2 - GI/Abdominal GI/Abdominal exam: Present: soft, no peritoneal signs. Absent: distended, firm, guarding, tenderness - Rectal Rectal exam: Present: deferred - Extremities Exam Extremities exam: Present: warm Additional comments: Right BKA - Neurological Exam Neurological exam: Present: no focal deficits - Psychiatric Psychiatric exam: Present: normal affect, normal mood - Skin Skin exam: Present: dry, intact, normal color, warm Results - Labs CBC & Chem 7: 02/16/18 04:55 02/16/18 04:55 Labs: Last Result Calcium 9.0 mg/dL (8.6-10.3) 02/16/18 04:55 Troponin I 6.49 ng/mL (< 0.04) H* 02/13/18 05:11 Salicylates < 2.5 mg/dL (15.0-30.0) L 02/12/18 17:09 Urine Opiates Screen Positive ng/mL (Tychfu=280) H 02/12/18 17:33 Entire Visit Hgb 9.8 g/dL (12.9-16.9) L 02/16/18 04:55 Hct 31.0 % (37.5-50.1) L 02/16/18 04:55 PT 13.3 Seconds (9.4-12.1) H 02/12/18 20:31 Total Bilirubin 0.6 mg/dL (0.3-1.0) 02/16/18 04:55 AST 28 Units/L (13-39) 02/16/18 04:55 ALT 18 Units/L (7-52) 02/16/18 04:55 Ammonia 47 mcmol/L (16-53) 02/12/18 17:35 Acetaminophen < 10 mcg/mL (10-20) L 02/12/18 17:09 - ABG ABG results: ABG ABG pH 7.39 pH Units (7.32-7.45) 02/14/18 05:56 ABG pCO2 37 mmHg (35-45) 02/14/18 05:56 ABG pO2 101 mmHg (85-104) 02/14/18 05:56 ABG O2 Saturation 98 % (95-98) 02/14/18 05:56 PT/INR, D-dimer PT 13.3 Seconds (9.4-12.1) H 02/12/18 20:31 D-Dimer 1518 ng/mLFEU (0-500) H 02/12/18 20:31 Consult Discharge Plan - Plan Referrals: NONE,PCP [Non-Partnered Physician] -
--- NOTE | 2018-02-16 12:57 | Discharge Summary ---
- NOTES TO OUTPATIENT PROVIDER Notes to Outpatient Provider: Patient was admitted for resp arrest likely due to acute increase in opiate use. Hospital stay complicated by PNA, s/p extubation, sepsis, JEET on CKD, rhabdo, elevated troponin. He has no DVT on doppler of LE and low suspicion for PE. His ECHO was normal and patient declined a LHC while inpatient. His pain medication regimen has been adjusted to low dose tilll he follows up with his pain physician. His renal function is back to baseline. Physical and occupational therapy recommended inpatient swing bed but patient also declines and wishes to go home, he is able to move around at home on his wheel chair and walker. Follow up recommended with PCP for ischemic heart dis ease work up as outpatient. he also has asymptomatic anemia and needs to be monitored and referred to GI prn. Plan of care discussed with the patient who verbalized understanding. Orders not resulted at time of discharge: Pending orders 02/12/18 17:12 Serotonin, Serum Stat 02/12/18 17:35 Culture,Blood [BC] Stat 02/13/18 19:57 Culture,Blood [BC] Stat 02/15/18 12:21 Stool guiac [Occult Blood,Stool] [BF] Routine 02/17/18 04:00 CBC [Complete Blood Count] [HEME] AM 0400 Date of Encounter: 02/16/18 Time of Encounter: 12:51 - Discharge Diagnosis (1) Sepsis Priority: Primary Status: Resolved Assessment and Plan: Patient met sepsis criteria upon presentation to the ED, with elevated temperature, tachycardia, and tachypnea. Suspect infectious source to be respiratory, due to presence of left lower lobe consolidation seen on chest CT. His WBC count was WNL at 10.6 and lactic acid was normal on initial studies. Last episode of fever 02/13 101.5 No leukocytosis, tachycardia improved JEET resolved, renal function is back to baseline MRSA screen was negative Blood cultures negative Patient is saturating 98% on room air he received 4 days of Vanco and 5 days of Zosyn inpatient He is discharged home on Augmentin for 3 more days to complete an 8 days course of antibiotics Qualifiers: Sepsis type: sepsis due to unspecified organism Qualified Code(s): A41.9 - Sepsis, unspecified organism (2) Unresponsive state Priority: Primary Status: Resolved Assessment and Plan: Patient presented in respiratory arrest in an unresponsive state Head CT unremarkable Likely due to recent increase in patient's home dose of morphine, as well as patient taking oxycodone and clonazepam Resolved Patient is AAOX3, no suspicion for pE Elevated troponins without EKG or ECHO changes and no arrhythmias on tele Follow up with pain physician to adjust pain meds (3) Acute on chronic kidney failure Priority: Primary Status: Resolved Assessment and Plan: Reanll function back to baseline Renal USS unremarkable, but left kidney not visualized Qualifiers: Acute renal failure type: unspecified Chronic kidney disease stage: stage 3 (moderate) Qualified Code(s): N17.9 - Acute kidney failure, unspecified; N18.3 - Chronic kidney disease, stage 3 (moderate) (4) Elevated troponin Priority: Primary Status: Resolved Assessment and Plan: peak at 6.49 in setting of unresponsiveness and respiratory arrest and sepsis ECHO unremarkable for low EF , or WMA He was on heparin drip for 72 hrs He is on ASA, BB, Lisinopril He is symptom free and even though cardiology recommended LHC, patient declined due to fear for his kidneys as he has no symptoms Follow up with PCP for ischemic heeart disease work up if patient is interested as out-patient (5) Diabetes Priority: Secondary Status: Ruled-out Assessment and Plan: A1C 5.7 Patient has a history of diabetes with diabetic neuropathy. FS acceptable Not on any meds Qualifiers: Diabetes mellitus type: type 2 Diabetes mellitus group home insulin use: without keno terminal operator use Diabetes mellitus complication status: with neurologic complications Diabetes mellitus complication detail: with unspecified neuropathy Qualified Code(s): E11.40 - Type 2 diabetes mellitus with diabetic neuropathy, unspecified (6) DVT prophylaxis Priority: Primary Status: Resolved (7) Anemia Priority: Primary Status: Acute Assessment and Plan: Presenting Hb 10, Hb this a.m 9 No obvious source of bleeding Follow up with PCP for monitoring and GI eval prn Patient declined any further work up Qualifiers: Anemia type: unspecified type Qualified Code(s): D64.9 - Anemia, unspecified (8) Respiratory arrest Priority: Primary Status: Resolved (9) Rhabdomyolysis Priority: Primary Status: Acute Assessment and Plan: CK on admission N but increased to peak of 3758 on 02/14 , with elevated trop CK now 575 Qualifiers: Rhabdomyolysis type: non-traumatic Qualified Code(s): M62.82 - Rhabdom yolysis (10) Elevated d-dimer Priority: Primary Status: Acute Assessment and Plan: Bilateral LE USS r/o DVT Low suspicion for PE CT non-contrast of right lower extremity demonstrated right [id number] amputation with postsurgical changes as well as placement of antibiotic beads. Soft tissue edema of the stomach suggesting cellulitis. No specific CT evidence of osteomyelitis although MRI would be more sensitive. No evidence of discrete drainable fluid collection to suggest abscess. No evidence of soft tissue gas. Follow up with PCP (11) Opiate dependence Priority: Primary Status: Chronic Assessment and Plan: Patient on high doses of morphine ER and IR, as well as oxycodone Continue home IR morphine prn Discontinued Oxycodone and ER morphine till patient sees pain physician Qualifiers: Substance use status: uncomplicated Qualified Code(s): F11.20 - Opioid dependence, uncomplicated Hospital course: Mr. Dixon is a 57 year old male Patient was admitted for resp arrest likely due to acute increase in opiate use. Hospital stay complicated by PNA, s/p extubation, sepsis, JEET on CKD, rhabdo, elevated troponin. He has no DVT on doppler of LE and low suspicion for PE. His ECHO was normal and patient declined a LHC while inpatient. His pain medication regimen has been adjusted to low dose tilll he follows up with his pain physician. His renal function is back to baseline. Physical and occupational therapy recommended inpatient swing bed but patient also declines and wishes to go home, he is able to move around at home on his wheel chair and walker. Follow up recommended with PCP for ischemic heart disease work up as outpatient. he also has asymptomatic anemia and needs to be monitored and referred to GI prn. Plan of care discussed with the patient who verbalized understanding. See each diagnosis for more details Discharge discussed with: patient, family, nurse - Time Spent with Patient Total time spent providing and/or coordinating discharge services: Greater than 30 minutes (50 mins spent) - Discharge Medications Prescriptions: Amoxicillin/Clavulanate [Augmentin] 500 mg PO BIDWM #6 tablet Aspirin Enteric Coated [Aspirin EC] 81 mg PO DAILY #30 tablet. Metoprolol [Lopressor] 12.5 mg PO BID #60 tablet Home Medications: Amitriptyline HCl 50 mg PO DAILY 02/12/18 [History] Amlodipine Besylate 2.5 mg PO DAILY 02/12/18 [History] Atorvastatin [Lipitor] 40 mg PO HS 02/12/18 [History] Gabapentin [Neurontin] 400 mg PO TID 02/12/18 [History] Lisinopril [Zestril] 20 mg PO DAILY 02/12/18 [History] Morphine Immed Rel [Morphine Sulfate] 15 mg PO TID 02/12/18 [History] PARoxetine HCl [Paroxetine HCl] 40 mg PO DAILY 02/12/18 [History] Amoxicillin/Clavulanate [Augmentin] 500 mg PO BIDWM #6 tablet 02/16/18 [Rx] Aspirin Enteric Coated [Aspirin EC] 81 mg PO DAILY #30 tablet. 02/16/18 [Rx] Metoprolol [Lopressor] 12.5 mg PO BID #60 tablet 02/16/18 [Rx] clonazePAM [Clonazepam] 0.5 mg PO TID #0 02/16/18 [Rx] Allergies/Adverse Reactions: Allergy/AdvReac Type Severity Reaction Status Date / Time No Known Allergies Allergy Verified 02/12/18 17:47 Date of admission: 02/12/18 20:50 Primary care physician: Danna Frank MD Consults: 02/12/18 18:53 Consult to Nephrology [CONS] Stat Consulting Provider: Kidney Britany/OLIVER/JAYLEN/SULEIMAN Reason for Consult: jeet Call Completed: Yes 02/12/18 20:17 Consult to Cardiology [CONS] Stat Comment: Consulting Provider: Cardiology Britany Reason for Consult: elevated troponin Call Completed: Yes 02/12/18 22:54 Consult to [facility] [CONS] Routine Reason for SW Consult: help with medicaid, family states they think he has a number but no card yet. Also may need help at home/home health? 02/13/18 04:26 Consult to Pulmonology [CONS] Routine Consulting Provider: [facility]m [facility] [place] Reason for Consult: 57-year-old male found unresponsive; recent history of BKA. Elevated troponin and acute renal failure status post intubation Call Completed: No 02/14/18 08:29 Consult to Speech Therapy [CONS] Routine Comment: Evaluate, develop and implement POC Reason for Consult: failed bedside swallow eval Call Completed: No 02/14/18 21:40 Consult to Wound Care [CONS] Routine Reason for Consult: recent BKA at [place]; assess wound for care needs Call Completed: No 02/14/18 22:01 Consult to Physical Therapy [CONS] Routine Comment: Evaluate, develop and implement POC Reason for Consult: Patient with recent BKA Does patient have active BEDREST order?: No Is patient medically & hemodynamically stable?: Yes 02/15/18 07:09 Consult to Occupational Therapy [CONS] Routine Comment: Evaluate, develop and implement POC Reason for Consult: R BKA. possible rehab on D/c Does patient have active BEDREST order?: No Is patient medically & hemodynamically stable?: Yes 02/16/18 10:08 Consult to Gastroenterology [CONS] Routine Consulting Provider: Gastroentermaría Garg Reason for Consult: HGB drop on heparin gtt. Needs LHC, with possible PCI/DAPT Call Completed: Yes Discharging clinician: Preston Mayer Anticipated date of discharge: 02/16/18 - Constitutional Vitals: Temp Pulse Resp BP Pulse Ox 98.6 F 53 14 136/79 98 02/16/18 11:35 02/16/18 11:35 02/16/18 11:35 02/16/18 11:35 02/16/18 11:35 Exam: GENERAL: Not in any form of distress, sitting up in bed HEENT: Atraumatic and normocephalic. Moist oral mucosa, not pale and not cyanotic NECK: Normal inspection CARDIOVASCULAR: Regular rate and rhythm. S1 and S2 present. No murmurs, gallops, or rubs. RESPIRATORY: Clear to auscultation bilaterally, no wheezes or rhonchi ABDOMEN: Soft. No organomegaly or masses noted. EXTREMITIES: Mild dependent edema of the left lower extremity. Right lower extremity s/p AKA. Surgical incision appears to be healing well without evidence of infection. NEUROLOGIC: Awake, alert, oriented 3, no focal deficits noted, moves all limbs spontaneously - Patient Status Disposition: Home, Self-Care Condition: Fair Functional capacity at discharge: uses cane/walker - Discharge Instructions Follow Up With: NONE,PCP [Non-Partnered Physician] - - Diet and Activity Activity: resume usual activities as tolerated Diet: low salt diet
[2018-02-16] MEDS ORDERED: Polyethylene Glycol 3350 255 GM POWDER PO ONE (17:00)
--- NOTE | 2018-02-17 18:58 | Electrocardiograph Report ---
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
--- NOTE | 2018-02-17 19:02 | Electrocardiograph Report ---
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
--- NOTE | 2018-02-17 19:07 | Electrocardiograph Report ---
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
--- NOTE | 2018-02-17 19:14 | Electrocardiograph Report ---
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
== END 2018-02-16 16:16 | disposition home or self-care (01) | DRG 720 ==
LOC: EMEROOARM 17:01 → ICNU 20:50 → SUATTDRO 20:50 → ICNU 21:20 → 2NNU 02-14 12:12
PROVIDERS: ADMIT Internal Medicine; ATTEND Internal Medicine